=== PATIENT | male | born 1955 | race Caucasian/White ===

== ENCOUNTER 2018-03-31 11:49 | Outpatient (CLI) | payer OTHER, MEDICARE ==
--- NOTE | 2018-03-31 13:42 | MRI Report ---
Reason: UNSPECIFIED INJURY OF MUSCLE,FASCIA AND TENDON Procedure Date: 03/31/2018 Accession Number: [id number] / [id number] Procedure: MRI - Femur/Thigh LT W/O CPT Code: FULL RESULT: EXAM: MRI LEFT FEMURS/THIGHS WITHOUT CONTRAST EXAM DATE: 03/31/2018 12:17 PM. CLINICAL HISTORY: Unspecified injury of muscle, fascia and tendon. COMPARISON: None. TECHNIQUE: Multiplanar, multisequence T1-weighted and fluid-sensitive sequences of the bilateral thighs without contrast. Other: Exam is limited, patient was able to complete axial T1, coronal T1 and STIR and sagittal STIR. No contrast. FINDINGS: Bones: No fractures or subluxations. No marrow edema. No bone lesions. Joint Spaces: Visualized portions of the hip and knee joints are unremarkable on these large biqjf-od-pehj images. Tendons: The visualized hamstring origins are unremarkable. Musculature: There appears to be at least high-grade partial-thickness tear at the attachment of the hamstring musculature on the ischial tuberosity. Further characterization is difficult because the amount of motion which is present. Surrounding edematous changes are noted and there is an incomplete partial focal fluid-filled gap at the attachment of both the semimembranosus and semitendinosus tendons. Other: The visualized sciatic and femoral nerves are unremarkable. The subcutaneous tissues are unremarkable. IMPRESSION: 1. Examination is somewhat limited because of patient's inability to complete the exam and because of patient motion. 2. There does appear to be a high-grade partial-thickness tear at the proximal attachment points of both semitendinosus and semitendinosus tendons at the ischial tuberosity attachment. Some of the tendon remains. This is estimated to be 75% or greater cross-sectional tendon tear. 3. No other worrisome imaging features. [facility] MUSCULOSKELETAL RADIOLOGY SECTION
== END 2018-03-31 11:50 | disposition home or self-care (01) ==
LOC: DI 11:49
PROVIDERS: ATTEND Nurse Practitioner Family
DX: S76.302A Unspecified injury of muscle, fascia and tendon of the posterior muscle group at thigh level, left thigh, initial encounter (principal)

== ENCOUNTER 2018-10-20 13:53 | Outpatient (CLI) | payer MEDICARE ==
--- NOTE | 2018-10-21 14:49 | XRAY Report ---
Reason: COUGH, POAIN IN RIGHT HIP, PAIN IN RIGHT SHOULDER Procedure Date: 10/20/2018 Accession Number: [id number] / [id number] Procedure: XRS - Shoulder 3 View RT CPT Code: FULL RESULT: EXAM: RIGHT SHOULDER RADIOGRAPHY EXAM DATE: 10/20/2018 02:18 PM. CLINICAL HISTORY: Right shoulder pain. COMPARISON: None. TECHNIQUE: 3 views. FINDINGS: Bones: Normal bone mineralization. No fracture. No focal bone lesion. Type III acromion. Joints: Mild ossific spurring involving the scapular glenoid. Mild degenerative changes involving the right acromioclavicular joint. No subluxation. No dislocation. No evidence for shoulder joint effusion. Soft tissues: No appreciable soft tissue swelling. IMPRESSION: 1. Mild degenerative changes involving the right acromioclavicular and right glenohumeral joints. 2. No acute findings. [facility]
--- NOTE | 2018-10-21 14:50 | XRAY Report ---
Reason: COUGH, POAIN IN RIGHT HIP, PAIN IN RIGHT SHOULDER Procedure Date: 10/20/2018 Accession Number: [id number] / [id number] Procedure: XRS - Hip w/Pelvis 2-3V RT CPT Code: FULL RESULT: EXAM: RIGHT HIP RADIOGRAPHY EXAM DATE: 10/20/2018 02:18 PM. CLINICAL HISTORY: Right hip pain. COMPARISON: PELVIS 1 VIEW 08/03/2018 10:21 AM. TECHNIQUE: 2 views. FINDINGS: Bones: Normal bone mineralization. No fracture. No focal bone lesion. Joints: Stable superior lateral right acetabular spurring. No joint effusion. No joint space narrowing. Stable mild degenerative changes in the left hip joint. Sacroiliac joints are intact. Soft Tissues: Soft tissues are unremarkable. IMPRESSION: 1. Stable superior lateral right acetabular spurring when compared with the prior study performed on 08/03/2018. 2. No joint space narrowing or joint effusion. 3. The remainder of the pelvis radiography is unremarkable. [facility]
--- NOTE | 2018-10-21 14:52 | XRAY Report ---
Reason: COUGH,PAIN IN RIGHT HIP,PAIN IN RIGHT SHOULDER Procedure Date: 10/20/2018 Accession Number: [id number] / [id number] Procedure: XRS - Chest 2 View X-Ray CPT Code: 98079 FULL RESULT: EXAM: CHEST RADIOGRAPHY EXAM DATE: 10/20/2018 02:18 PM. CLINICAL HISTORY: Persistent chest pain for one year; cough. Patient was a former heavy cigarette smoker. COMPARISON: None.. TECHNIQUE: 2 views. FINDINGS: Lungs/Pleura: No focal opacities evident. No pleural effusion. No pneumothorax. Normal volumes. Mediastinum: Heart and mediastinal contours are unremarkable. Other: Mild degenerative changes in the right acromioclavicular joint. IMPRESSION: No radiographic evidence of acute cardiopulmonary disease. [facility]
== END 2018-10-20 13:54 | disposition home or self-care (01) ==
LOC: DI.S 13:53
PROVIDERS: ATTEND Physician Assistant
DX: M19.011 Primary osteoarthritis, right shoulder (principal); M25.551 Pain in right hip; M76.891 Other specified enthesopathies of right lower limb, excluding foot; R05 Cough
CPT/HCPCS: 71046

== ENCOUNTER 2018-11-22 11:56 | Outpatient (CLI) | payer MEDICARE ==
--- NOTE | 2018-11-22 15:25 | XRAY Report ---
Reason: PAIN OF RIGHT HIP, LOW BACK PAIN Procedure Date: 11/22/2018 Accession Number: [id number] / [id number] Procedure: XR - Hip w/Pelvis 2-3V RT CPT Code: FULL RESULT: EXAM: RIGHT HIP RADIOGRAPHY EXAM DATE: 11/22/2018 12:38 PM. CLINICAL HISTORY: PAIN OF RIGHT HIP, LOW BACK PAIN. COMPARISON: HIP W/PELVIS 2-3V RT 10/20/2018 2:14 PM. TECHNIQUE: 2 views. FINDINGS: Bones: Normal. No fractures or bone lesion. Joints: There is marginal osteophytosis and mild joint space loss not significantly changed compared to 10/20/2018. No subluxation. Soft Tissues: Normal. No soft tissue swelling. IMPRESSION: Stable degenerative changes, moderate hip osteoarthrosis. [facility]
--- NOTE | 2018-11-22 15:30 | XRAY Report ---
Reason: LOW BACK PAIN Procedure Date: 11/22/2018 Accession Number: [id number] / [id number] Procedure: XR - Lumbar Spine 2 View CPT Code: FULL RESULT: EXAM: LUMBOSACRAL SPINE RADIOGRAPHY EXAM DATE: 11/22/2018 12:39 PM. CLINICAL HISTORY: Low back pain. COMPARISONS: CHEST 2 VIEW 10/20/2018 2:30 PM. TECHNIQUE: 3 views. FINDINGS: Alignment: Mild leftward lumbar scoliosis. No spondylolisthesis. Bones: Five sjc-sdh-gwupdza lumbar vertebral bodies are present. Grade 1 compressive change at the superior endplate of L1. No retropulsion of bone into the spinal canal detected. Vertebral body heights elsewhere appear maintained. Disks: Mild disk space narrowing L4-L5 and L5-S1.. Facets: Mild hypertrophic changes at the facet articulations bilaterally lower lumbar spine.. Sacroiliac Joints: Unremarkable. Soft Tissues: Normal. The visualized bowel gas pattern is normal. IMPRESSION: Grade 1 compressive change at L1. Mild degenerative changes lower lumbar spine [facility]
--- NOTE | 2018-11-22 19:40 | MRI Report ---
Reason: PAIN OF RIGHT SHOULDER JOINT Procedure Date: 11/22/2018 Accession Number: [id number] / [id number] Procedure: MRI - Shoulder RT W/O CPT Code: FULL RESULT: EXAM: RIGHT SHOULDER MRI WITHOUT CONTRAST EXAM DATE: 11/22/2018 01:18 PM. CLINICAL HISTORY: Pain of right shoulder joint. COMPARISON: SHOULDER 3 VIEW RT 10/20/2018. TECHNIQUE: Multiplanar, multisequence T1-weighted and fluid-sensitive sequences of the shoulder without contrast. Other: None. FINDINGS: Acromioclavicular Region: The acromion is type II. Moderate acromioclavicular joint osteoarthritis. There is a joint effusion. There are subchondral cysts on either side of the joint. There is a moderate-sized bursal effusion. Glenohumeral Region: No subluxation. No effusion or loose bodies. The articular cartilage is unremarkable. Bone Marrow: No fracture, marrow edema or bone lesions. Labrum: Motion artifact degrades image quality. There is no appreciable tear. Musculature/Rotator Cuff: There is a 3 x 7 mm full-thickness tear of the anterior insertion of supraspinatus. There is moderate supraspinatus tendinosis. There is mild infraspinatus tendinosis. There is moderate subscapularis tendinosis with a high-grade intrasubstance tear at the musculotendinous junction. There is no appreciable atrophy. Biceps Tendon: There is tendinosis, medial subluxation and partial-thickness tearing of the long head of biceps. Other: The subcutaneous tissues are unremarkable. IMPRESSION: 1. Full-thickness tear of the anterior inserting fibers of supraspinatus. Moderate supraspinatus and subscapularis tendinosis. There is a high-grade intrasubstance tear of subscapularis. 2. Medial subluxation, tendinosis and partial-thickness tearing of the long head of biceps. 3. Moderate acromioclavicular osteoarthritis. [facility]
== END 2018-11-22 11:57 | disposition home or self-care (01) ==
LOC: DI 11:56
PROVIDERS: ATTEND Physician Assistant
DX: M25.511 Pain in right shoulder (principal); M75.101 Unspecified rotator cuff tear or rupture of right shoulder, not specified as traumatic; M75.81 Other shoulder lesions, right shoulder; M19.011 Primary osteoarthritis, right shoulder; M16.11 Unilateral primary osteoarthritis, right hip; M41.86 Other forms of scoliosis, lumbar region; M48.061 Spinal stenosis, lumbar region without neurogenic claudication
CPT/HCPCS: 72100

== ENCOUNTER 2019-08-08 08:00 | Outpatient (CLI) | payer MEDICARE | END 2019-08-08 23:59 | disposition home or self-care (01) | LOC: LAB.R 08:00 | PROVIDERS: ATTEND Nurse Practitioner Family | DX: Z20.828 Contact with and (suspected) exposure to other viral communicable diseases (principal) | CPT/HCPCS: 81599 ==

== ENCOUNTER 2021-08-14 08:00 | Outpatient (CLI) | payer MEDICARE ==
--- NOTE | 2021-08-14 10:07 | XRAY Report ---
PROCEDURE: Hand 3 View LT INDICATIONS: LEFT HAND PAIN TECHNIQUE: 3 views of the hand(s) acquired. COMPARISON: None FINDINGS: Bones: No fractures or dislocations. There is mild ventral and trace lateral subluxation at the seco nd MCP joint. Mild spurring at the first carpometacarpal joint. There are deformities of the distal r adius and distal ulna which may be remote posttraumatic, for example impaction of the distal radial m etaphysis. There is a corticated ulnar styloid fracture fragment which is minimally displaced. 3 subc ortical cysts are present at the ulnar metaphysis. No suspicious bony lesions. Soft tissues: No suspicious soft tissue calcifications. IMPRESSION: 1. Early osteoarthritic changes at the first CMC joint. 2. Mild subluxation at the second MCP joint without spurring or joint space loss. This may be arthrit ic or remote posttraumatic. 3. Probable remote posttraumatic and secondary arthritic changes of the wrist. Reviewed by: Thalia Goins MD on 08/14/2021 10:06 AM PDT Approved by: Thalia Goins MD on 08/14/2021 10:06 AM PDT Station ID: [id number]
== END 2021-08-14 23:59 | disposition home or self-care (01) ==
LOC: DI.S 08:00
PROVIDERS: ATTEND Nurse Practitioner Family
DX: M18.12 Unilateral primary osteoarthritis of first carpometacarpal joint, left hand (principal); S63.211A Subluxation of metacarpophalangeal joint of left index finger, initial encounter

== ENCOUNTER 2022-08-14 10:20 | Outpatient (CLI) | payer MEDICARE ==
--- NOTE | 2022-08-14 20:33 | XRAY Report ---
PROCEDURE: Tib/Fib RT INDICATIONS: RIGHT LOWER LIMB, RIGHT HIP PAIN TECHNIQUE: 2 views of the tibia and fibula were acquired. COMPARISON: None. FINDINGS: Bones: No fractures or dislocations. No suspicious bony lesions. Soft tissues: No suspicious soft tissue calcifications or masses. IMPRESSION: No visualized acute fracture or dislocation. However, occult injury cannot be excluded. Recommend april rt interval imaging follow-up in 7-10 days as clinically indicated for additional evaluation. Reviewed by: Laurie Saul MD on 08/14/2022 8:31 PM PDT Approved by: Laurie Saul MD on 08/14/2022 8:31 PM PDT Station ID: [id number]
--- NOTE | 2022-08-14 20:33 | XRAY Report ---
PROCEDURE: Hip w/Pelvis 2-3V RT INDICATIONS: RIGHT HIP PAIN TECHNIQUE: AP pelvis with lateral view(s) of the right hip(s). COMPARISON: None. FINDINGS: Bones: No fractures or dislocations. No suspicious bony lesions. Bilateral degenerative hip joint space narrowing. Minimal to mild degenerative changes are present within the lower lumbar spine. Soft tissues: No suspicious soft tissue calcifications or masses. IMPRESSION: Bilateral hip and lower lumbar arthritis. Reviewed by: Laurie Saul MD on 08/14/2022 8:32 PM PDT Approved by: Laurie Saul MD on 08/14/2022 8:32 PM PDT Station ID: [id number]
== END 2022-08-14 10:21 | disposition home or self-care (01) ==
LOC: DI.S 10:20
PROVIDERS: ATTEND Nurse Practitioner Family
DX: M79.605 Pain in left leg (principal); M16.0 Bilateral primary osteoarthritis of hip

== ENCOUNTER 2022-08-18 08:07 | Outpatient (CLI) | payer MEDICARE ==
[2022-08-18 14:33] LABS: BASOPHILS % (AUTO) 0.5 %; EOSINOPHILS # (AUTO) 0.2 10^3/uL (0.0-0.7); EOSINOPHILS % (AUTO) 3.5 %; HCT - HEMATOCRIT 44.8 % (42.0-52.0); HGB - HEMOGLOBIN 15.1 g/dL (14.0-18.0); LYMPHOCYTES # (AUTO) 1.8 10^3/uL (1.5-3.5); LYMPHOCYTES % (AUTO) 27.4 %; MEAN CORPUSCULAR HEMOGLOBIN 32.6 pg (27.0-31.0); MEAN CORPUSCULAR HGB CONC 33.7 g/dL (32.0-36.0); MEAN CORPUSCULAR VOLUME 96.8 fL (80.0-94.0); MEAN PLATELET VOLUME 10.7 fL (7.4-11.4); MONOCYTES # (AUTO) 0.7 10^3/uL (0.0-1.0); MONOCYTES % (AUTO) 9.8 %; NEUTROPHILS # (AUTO) 3.9 10^3/uL (1.5-6.6); NEUTROPHILS % (AUTO) 58.5 %; PLT - PLATELET COUNT 220 10^3/uL (130-450); RED BLOOD COUNT 4.63 10^6/uL (4.70-6.10); RED CELL DISTRIBUTION WIDTH 13.6 % (12.0-15.0); WHITE BLOOD COUNT 6.6 x10^3/uL (4.8-10.8)
[2022-08-18 14:57] LABS: PSA TOTAL 1.057 ng/mL (0.000-2.000)
[2022-08-18 15:03] LABS: THYROID STIMULATING HORMONE 1.77 uIU/mL (0.34-5.60)
[2022-08-18 21:03] LABS: ALBUMIN 4.3 g/dL (3.2-5.5); ALBUMIN/GLOBULIN RATIO 1.5 (1.0-2.2); ALKALINE PHOSPHATASE 40 IU/L (42-121); ALT ALANINE AMINOTRANSFERASE 21 IU/L (10-60); AST ASPARTATE AMINOTRANSFERASE 25 IU/L (10-42); BILIRUBIN,TOTAL 1.1 mg/dL (0.2-1.0); BUN - BLOOD UREA NITROGEN 18 mg/dL (6-20); CALCIUM 8.3 mg/dL (8.5-10.3); CARBON DIOXIDE - CO2 24 mmol/L (21-32); CHLORIDE 108 mmol/L (101-111); CHOL/HDL RATIO 4.4 (<5.0); CHOLESTEROL 210 mg/dL; CREATININE 0.9 mg/dL (0.6-1.2); GFR - MDRD 84 (>89); GLUCOSE 107 mg/dL (70-100); HDL CHOLESTEROL 48 mg/dL; LDL CHOLESTEROL,CALCULATED 118 mg/dL; LDL/HDL RATIO 2.5 (<3.6); POTASSIUM 4.1 mmol/L (3.5-5.0); SODIUM 138 mmol/L (135-145); TOTAL PROTEIN 7.2 g/dL (6.7-8.2); TRIGLYCERIDES 221 mg/dL; VLDL CHOLESTEROL 44 mg/dL
== END 2022-08-18 08:08 | disposition home or self-care (01) ==
LOC: LAB.S 08:07
PROVIDERS: ATTEND Nurse Practitioner Family
DX: I10 Essential (primary) hypertension (principal); E78.5 Hyperlipidemia, unspecified; Z12.5 Encounter for screening for malignant neoplasm of prostate
CPT/HCPCS: 36415; 80053; 80061; 83721; 84153; 84443; 85025

== ENCOUNTER 2023-03-31 08:22 | Outpatient (CLI) | payer MEDICARE ==
[2023-03-31 14:30] LABS: BASOPHILS % (AUTO) 0.6 %; EOSINOPHILS # (AUTO) 0.2 10^3/uL (0.0-0.7); EOSINOPHILS % (AUTO) 2.6 %; HCT - HEMATOCRIT 45.1 % (42.0-52.0); LYMPHOCYTES # (AUTO) 1.5 10^3/uL (1.5-3.5); MEAN CORPUSCULAR HEMOGLOBIN 32.1 pg (27.0-31.0); MEAN CORPUSCULAR HGB CONC 33.3 g/dL (32.0-36.0); MEAN CORPUSCULAR VOLUME 96.4 fL (80.0-94.0); MEAN PLATELET VOLUME 10.6 fL (7.4-11.4); MONOCYTES # (AUTO) 0.8 10^3/uL (0.0-1.0); MONOCYTES % (AUTO) 11.2 %; NEUTROPHILS # (AUTO) 4.3 10^3/uL (1.5-6.6); PLT - PLATELET COUNT 277 10^3/uL (130-450); RED BLOOD COUNT 4.68 10^6/uL (4.70-6.10); RED CELL DISTRIBUTION WIDTH 13.3 % (12.0-15.0); WHITE BLOOD COUNT 6.9 x10^3/uL (4.8-10.8)
[2023-03-31 15:46] LABS: ALBUMIN 4.3 g/dL (3.2-5.5); ALBUMIN/GLOBULIN RATIO 1.2 (1.0-2.2); ALKALINE PHOSPHATASE 65 IU/L (42-121); ALT ALANINE AMINOTRANSFERASE 15 IU/L (10-60); AST ASPARTATE AMINOTRANSFERASE 17 IU/L (10-42); BILIRUBIN,TOTAL 0.9 mg/dL (0.2-1.0); BUN - BLOOD UREA NITROGEN 21 mg/dL (6-20); CALCIUM 9.2 mg/dL (8.5-10.3); CARBON DIOXIDE - CO2 22 mmol/L (21-32); CHLORIDE 103 mmol/L (101-111); CHOL/HDL RATIO 4.2 (<5.0); CHOLESTEROL 191 mg/dL; CREATININE 0.8 mg/dL (0.6-1.3); GFR - MDRD 96 (>89); GLUCOSE 110 mg/dL (74-104); HDL CHOLESTEROL 45 mg/dL; LDL CHOLESTEROL,CALCULATED 116 mg/dL; LDL/HDL RATIO 2.6 (<3.6); SODIUM 134 mmol/L (135-145); TOTAL PROTEIN 7.9 g/dL (6.4-8.9); TRIGLYCERIDES 148 mg/dL (48-352); VLDL CHOLESTEROL 30 mg/dL
[2023-03-31 15:54] LABS: THYROID STIMULATING HORMONE 2.11 uIU/mL (0.34-5.60)
[2023-03-31 21:37] LABS: ESTIMATED AVERAGE GLUCOSE 108 mg/dL (70-100); HEMOGLOBIN A1c% 5.4 % (4.27-6.07)
== END 2023-03-31 08:23 | disposition home or self-care (01) ==
LOC: LAB.S 08:22
PROVIDERS: ATTEND Physician Assistant Medical
DX: Z13.9 Encounter for screening, unspecified (principal)
CPT/HCPCS: 36415; 80053; 80061; 83036; 83721; 84153; 84443; 85025

== ENCOUNTER 2023-05-03 10:21 | Outpatient (CLI) | payer MEDICARE ==
[2023-05-03 10:43] LABS: CREATININE 0.9 mg/dL (0.6-1.3)
[2023-05-03] MEDS ORDERED: IOVERSOL 320 100 ML VIAL IVP ONE (11:24)
[2023-05-03] MEDS ORDERED: DIATRIZOATE MEGLU/DIATRIZO SOD 30 ML BOTTLE PO ONE (11:24)
--- NOTE | 2023-05-03 17:42 | CT Report ---
PROCEDURE: Abdomen/Pelvis W INDICATIONS: SUPRAPUBIC PAIN CONTRAST: Optiray 320- 100ml TECHNIQUE: After the administration of intravenous contrast, a CT scan of the abdomen and pelvis was performed. Images were recorded and evaluated at appropriate window settings. Reformats: coronal and sagittal. F or radiation dose reduction, the following was used: automated exposure control, adjustment of mA and /or kV according to patient size. COMPARISON: None. FINDINGS: Image quality: Diagnostic. Lower chest: Unremarkable. Liver: No solid mass. Mild to moderate diffuse hepatic steatosis. Gallbladder and biliary tree: Surgically absent. No biliary dilation, accounting for post-cholecystec teresa state. Spleen: No splenomegaly. Pancreas: No pancreatic ductal dilation. Adrenals: No adrenal nodule. Kidneys and ureters: No hydronephrosis. No renal cystic lesion which requires follow up. No solid mas s. Stomach, bowel and peritoneum: There is moderately advanced sigmoid diverticulosis. There is a portio n of the sigmoid that sits directly on top of the dome of the bladder. This area has focal wall thick ening which may simply represent diverticulitis. However, cannot exclude a focal sigmoid malignancy. Reference sagittal reformats image 112 of series 6. There is mild inflammatory change in the subjacen t fat. Lymph nodes: No central or retroperitoneal adenopathy. Vessels: No infrarenal aortic aneurysm. PELVIS Reproductive organs: Unremarkable. Bladder: No abnormal wall thickening, accounting for underdistention. Pelvic lymph nodes: No pelvic adenopathy by size criteria. Bones: No aggressive osseous abnormality moderate chronic L1 compression. Mild anterior vertebral bod y height loss of T12 and T11.. Other: No significant ventral or inguinal hernia. IMPRESSION: 1. Moderately severe sigmoid diverticulosis with probable mild superimposed sigmoid diverticulitis. 2. A focal area of diffuse wall thickening of the sigmoid and medially superior to the dome of the bl adder may simply be related to diverticulitis. However, cannot exclude an underlying malignancy. 3. Presumed osteoporotic compressions. 4. Remote cholecystectomy. Comment: Recommend direct visualization after acute symptoms resolve. Reviewed by: Jeevan Castellon MD on 05/03/2023 5:41 PM PST Approved by: Jeevan Castellon MD on 05/03/2023 5:41 PM PST Station ID: [id number]
[2023-05-03] MEDS: DIATRIZOATE MEGLU/DIATRIZO SOD 30 ML BOTTLE PO ONE (18:35)
[2023-05-03] MEDS: IOVERSOL 320 100 ML VIAL IVP ONE (18:35)
== END 2023-05-03 10:22 | disposition home or self-care (01) ==
LOC: LAB 10:21
PROVIDERS: ATTEND Registered Nurse
DX: R10.30 Lower abdominal pain, unspecified (principal); K57.30 Diverticulosis of large intestine without perforation or abscess without bleeding; Z90.49 Acquired absence of other specified parts of digestive tract
CPT/HCPCS: 36415; 74177; 82565; Q9963; Q9967

== ENCOUNTER 2023-06-28 08:01 | Outpatient (CLI) | payer MEDICARE ==
--- NOTE | 2023-06-28 10:47 | XRAY Report ---
PROCEDURE: Knee 2V LT INDICATIONS: KNEE JOINT PAIN,LEFT TECHNIQUE: 2 views of the knee(s) were acquired. COMPARISON: None. FINDINGS: Bones: No fractures or dislocations. No suspicious bony lesions. Tricompartmental joint space oj rowing with associated osteophytosis. Soft tissues: No knee joint effusion. No suspicious soft tissue calcifications or masses. IMPRESSION: No acute bony abnormality. Mild to moderate tricompartmental osteoarthritis. Kellgren-Dennis scale of osteoarthritis: 2. Reviewed by: Jose Giordano MD on 06/28/2023 10:46 AM PDT Approved by: Jose Giordano MD on 06/28/2023 10:46 AM PDT Station ID: [id number]
== END 2023-06-28 08:02 | disposition home or self-care (01) ==
LOC: DI.S 08:01
PROVIDERS: ATTEND Physician Assistant Medical
DX: M17.12 Unilateral primary osteoarthritis, left knee (principal)

== ENCOUNTER 2023-11-25 08:14 | Outpatient (CLI) | payer MEDICARE, MEDICAID ==
--- NOTE | 2023-11-25 14:33 | XRAY Report ---
PROCEDURE: Knee 2V LT INDICATIONS: LEFT KNEE PAIN TECHNIQUE: 2 views of the knee(s) were acquired. COMPARISON: 06/28/2023 FINDINGS: Bones: No fractures or dislocations. Mild osteoarthritic changes with mild osteophytosis and joint s pace narrowing. No suspicious bony lesions. Soft tissues: No knee joint effusion. No suspicious soft tissue calcifications or masses. IMPRESSION: No acute bony abnormality. Mild osteoarthritic changes. Reviewed by: Bobby Luna MD on 11/25/2023 2:31 PM PDT Approved by: Bobby Luna MD on 11/25/2023 2:31 PM PDT Station ID: [id number]
== END 2023-11-25 08:15 | disposition home or self-care (01) ==
LOC: LAB.S 08:14 → DI.S 08:15
PROVIDERS: ATTEND Nurse Practitioner Gerontology
DX: M17.12 Unilateral primary osteoarthritis, left knee (principal)

== ENCOUNTER 2024-06-21 10:14 | Inpatient (IN) ==
[2024-06-21 10:42] LABS: BASOPHILS % (AUTO) 0.2 %; HCT - HEMATOCRIT 32.6 % (42.0-52.0); HGB - HEMOGLOBIN 10.5 g/dL (14.0-18.0); LYMPHOCYTES % (AUTO) 5.7 %; MEAN CORPUSCULAR HEMOGLOBIN 31.4 pg (27.0-31.0); MEAN CORPUSCULAR HGB CONC 32.2 g/dL (32.0-36.0); MEAN CORPUSCULAR VOLUME 97.6 fL (80.0-94.0); MEAN PLATELET VOLUME 9.9 fL (7.4-11.4); MONOCYTES % (AUTO) 7.8 %; NEUTROPHILS % (AUTO) 85.1 %; PLT - PLATELET COUNT 462 10^3/uL (130-450); RED BLOOD COUNT 3.34 10^6/uL (4.70-6.10); RED CELL DISTRIBUTION WIDTH 13.5 % (12.0-15.0); WHITE BLOOD COUNT 21.6 x10^3/uL (4.8-10.8)
[2024-06-21 10:48] LABS: ABNORMAL LYMPHS % (MANUAL) 0 %
[2024-06-21 10:55] LABS: ALBUMIN 3.2 g/dL (3.2-5.5); ALBUMIN/GLOBULIN RATIO 0.7 (1.0-2.2); ALKALINE PHOSPHATASE 109 IU/L (42-121); ALT ALANINE AMINOTRANSFERASE 78 IU/L (10-60); AST ASPARTATE AMINOTRANSFERASE 60 IU/L (10-42); BILIRUBIN,TOTAL 1.4 mg/dL (0.2-1.0); BUN - BLOOD UREA NITROGEN 19 mg/dL (6-20); CALCIUM 8.4 mg/dL (8.5-10.3); CARBON DIOXIDE - CO2 23 mmol/L (21-32); CHLORIDE 96 mmol/L (101-111); CREATININE 1.1 mg/dL (0.6-1.3); GFR - MDRD 67 (>89); GLUCOSE 107 mg/dL (74-104); LIPASE < 10 U/L (11-82); SODIUM 130 mmol/L (135-145); TOTAL PROTEIN 7.8 g/dL (6.4-8.9)
[2024-06-21 10:59] LABS: BAND NEUTROPHILS % (MANUAL) 2 %; DIFFERENTIAL COMMENT MANUAL DIFFERENTIAL; LYMPHOCYTES # (MANUAL) 0.9 10^3/uL (1.5-3.5); LYMPHOCYTES % (MANUAL) 1 %; MONOCYTES # (MANUAL) 2.4 10^3/uL (0.0-1.0); NEUTROPHILS # (MANUAL) 18.4 10^3/uL (1.5-6.6); PLATELET ESTIMATE, MANUAL INCREASED (>450,000) (NORMAL); RBC MORPHOLOGY (MULTIPLE) 1+ ANISOCYTOSIS (NORMAL); REACTIVE LYMPHS % (MANUAL) 3 %
--- OUTSIDE RECORDS SUMMARY | 2024-06-21 11:06 | EXTERNAL MEDICAL SUMMARY RPT | Continuity of Care Document ---
Author Organization [facility] Address [address] [place] [id number] Phone Problems date description facility 2024-04-03 08:44 Other chronic pain [facility] 2024-04-03 08:44 Chest pain, unspecified [facility] 2024-04-10 17:27 Other specified anxiety disorde rs [facility] 2024-04-10 17:27 Sprain of unspecifie d site of left knee, initial [facility] 2024-04-12 09:04 Pain in left thigh [facility] 2024-04-12 10:29 Pain in left thigh [facility] 2024-04-21 14:43 Pain in left thigh [facility] 2024-04-21 14:44 Other specified anxiety [facility]de [facility] 2024-04-21 14:44 Illness, unspecified [facility] 2024-04-21 14:44 Sprain of unspecifie d site of left knee, initial encounter [facility] 2024-04-21 14:45 Bipolar disorder, unspecified [facility] 2024-04-26 11:02 Illness, unspecified [facility] 2024-04-26 11:06 Illness, unspecified [facility] 2024-04-27 07:27 Illness, unspecified [facility] 2024-04-28 10:23 Pain in unspecified knee [facility] 2024-04-28 10:23 Dorsalgia, unspecified [facility] 2024-04-28 10:23 Illness, unspecified [facility] 2024-04-28 10:23 Encounter for issue of repeat p rescription [facility] 2024-05-03 09:23 Other chronic pain [facility] 2024-05-03 09:23 Chest pain, unspecified [facility] 2024-05-16 12:44 Other specified disorders of [facility] Results/Labs test date facility value unit notes Result panel 1 SARS-CoV-2 -RESP PCR PANEL 2024-05-16 09:59 [facility] NOT DETECTED (missing) A negative test result for this test indicates that SARS-CoV-2 RNA was not present in the specimen above the limit of detection. Testing performed on the [employer] RP2.1 Panel, a multiplexed nucleic acid repiratory panel. Negative results do not preclude infection with SARS-CoV-2 virus and should not be the sole basis of a patient management decision. In some patients repeat testing at various time points may be necessary for virus detection. False-negative results may arise from improper sample collection, degradation of viral RNA during shipping or storage, the presence of PCR inhibitors, and/or mutation in the SARS-CoV-2 virus. INFLUENZA A- RESP PCR PANEL 2024-05-16 09:59 [facility] NOT DETECTED (missing) Influenza A including subtypes H1, H3, and H1-2009 not detected by the [employer] RP2.1 Panel, a multiplexed nucleic acid test intended for the simultaneous qualitative detection and differentiation of nucleic acids from multiple viral and bacterial respiratory organisms. B. PARAPERTUSSIS- RESP PCR LEGER 2024-05-16 09:59 [facility] NOT DETECTED (missing) Negative results for this organism do not preclude infection with this organism and may require additional laboratory testing (e.g., bacterial and viral culture, immunofluorescence, and radiography) when evaluating a patient with possible respiratory tract infection. B. PERTUSSIS- RESP PCR PANEL 2024-05-16 09:59 [facility] NOT DETECTED (missing) Negative results for this organism do not preclude infection with this organism and may require additional laboratory testing (e.g., bacterial and viral culture, immunofluorescence, and radiography) when evaluating a patient with possible respiratory tract infection. C. PNEUMONIAE- RESP PCR PANEL 2024-05-16 09:59 [facility] NOT DETECTED (missing) Negative results for this organism do not preclude infection with this organism and may require additional laboratory testing (e.g., bacterial and viral culture, immunofluorescence, and radiography) when evaluating a patient with possible respiratory tract infection. M. PNEUMONIAE- RESP PCR PANEL 2024-05-16 09:59 [facility] NOT DETECTED (missing) Negative results for this organism do not preclude infection with this organism and may require additional laboratory testing (e.g., bacterial and viral culture, immunofluorescence, and radiography) when evaluating a patient with possible respiratory tract infection. ADENOVIRUS - RESP PCR PANEL 2024-05-16 09:59 [facility] NOT DETECTED (missing) Negative results in the setting ofa respiratory illness may be due to infection with pathogens not detected by this test, or lower respiratory tract infection that may not be detected by nasopharyngeal specimen. CORONAVIRUS 229E-RESP PCR 2024-05-16 09:59 [facility] NOT DETECTED (missing) Negative results in the setting ofa respiratory illness may be due to infection with pathogens not detected by this test, or lower respiratory tract infection that may not be detected by nasopharyngeal specimen. CORONAVIRUS HKU1-RESP PCR 2024-05-16 09:59 [facility] NOT DETECTED (missing) Negative results in the setting ofa respiratory illness may be due to infection with pathogens not detected by this test, or lower respiratory tract infection that may not be detected by nasopharyngeal specimen. CORONAVIRUS [id number] PCR 2024-05-16 09:59 [facility] NOT DETECTED (missing) Negative results in the setting ofa respiratory illness may be due to infection with pathogens not detected by this test, or lower respiratory tract infection that may not be detected by nasopharyngeal specimen. CORONAVIRUS [id number]-[id number] PCR 2024-05-16 09:59 [facility] NOT DETECTED (missing) Negative results in the setting ofa respiratory illness may be due to infection with pathogens not detected by this test, or lower respiratory tract infection that may not be detected by nasopharyngeal specimen. HUMAN METAPNEUMOVIRUS 2024-05-16 09:59 [facility] NOT DETECTED (missing) Negative results in the setting ofa respiratory illness may be due to infection with pathogens not detected by this test, or lower respiratory tract infection that may not be detected by nasopharyngeal specimen. INFLUENZA B - RESP PCR PANEL 2024-05-16 09:59 [facility] NOT DETECTED (missing) Negative results in the setting ofa respiratory illness may be due to infection with pathogens not detected by this test, or lower respiratory tract infection that may not be detected by nasopharyngeal specimen. PARAINFLUENZA VIRUS 1 2024-05-16 09:59 [facility] NOT DETECTED (missing) Negative results in the setting ofa respiratory illness may be due to infection with pathogens not detected by this test, or lower respiratory tract infection that may not be detected by nasopharyngeal specimen. PARAINFLUENZA VIRUS 2 2024-05-16 09:59 [facility] NOT DETECTED (missing) Negative results in the setting ofa respiratory illness may be due to infection with pathogens not detected by this test, or lower respiratory tract infection that may not be detected by nasopharyngeal specimen. PARAINFLUENZA VIRUS 3 2024-05-16 09:59 [facility] NOT DETECTED (missing) Negative results in the setting ofa respiratory illness may be due to infection with pathogens not detected by this test, or lower respiratory tract infection that may not be detected by nasopharyngeal specimen. PARAINFLUENZA VIRUS 4 2024-05-16 09:59 [facility] NOT DETECTED (missing) Negative results in the setting ofa respiratory illness may be due to infection with pathogens not detected by this test, or lower respiratory tract infection that may not be detected by nasopharyngeal specimen. RHINOVIRUS/ENTEROVI JANETTE 2024-05-16 09:59 [facility] NOT DETECTED (missing) Negative results in the setting ofa respiratory illness may be due to infection with pathogens not detected by this test, or lower respiratory tract infection that may not be detected by nasopharyngeal specimen. RSV- RESP PCR PANEL 2024-05-16 09:59 [facility] NOT DETECTED (missing) Negative results in the setting ofa respiratory illness may be due to infection with pathogens not detected by this test, or lower respiratory tract infection that may not be detected by nasopharyngeal specimen. Result panel 2 NUCLEATED RED BLOOD CELLS AUTO 2024-05-16 11:24 [facility] 0.0 /100wbc (missing) EOSINOPHILS # (AUTO) 2024-05-16 11:24 [facility] 0.0 10 3/ul (missing) NRBC ABSOLUTE COUNT (AUTO) 2024-05-16 11:24 [facility] 0.00 x10 3/ul (missing) BASOPHILS # (AUTO) 2024-05-16 11:24 [facility] 0.1 10 3/ul (missing) LYMPHOCYTES # (AUTO) 2024-05-16 11:24 [facility] 0.6 10 3/ul (missing) BILIRUBIN,TOTAL 2024-05-16 11:24 [employer] [facility] 1.1 mg /dl As of August 2022 testing method has changed, this may include reference ranges. LACTIC ACID, VENOUS 2024-05-16 11:24 [facility] N As of August 2022 testing method has changed, this may include reference ranges. ALBUMIN/GLOBULIN RATIO 2024-05-16 11:24 [facility] 1.2 (missing) (missing) CREATININE 2024-05-16 11:24 [facility] 1.[facility] mg/dl As of August 2022 testing method has changed, this may include reference ranges. CHLORIDE 2024-05-16 11:24 [facility] 100 mmol/l As of August 2022 testing method has changed, this may include reference ranges. ANION GAP 2024-05-16 11:24 [facility] 11.0 (missing ) (missing) GLUCOSE 2024-05-16 11:24 [facility] 117 mg/dl As of August 2022 testing method has changed, this may include reference ranges. RED CELL DISTRIBUTION WIDTH 2024-05-16 11:24 [facility] 13.2 % (missing) SODIUM 2024-05-16 11:24 [employer] 132 mmol/l As of August 2022 testing method has changed, this may include reference ranges. HGB - HEMOGLOBIN 2024-05-16 11:24 [employer] 14.6 g /dl (missing) NEUTROPHILS # (AUTO) 2024-05-16 11:24 [facility] 18.8 10 3/ul (missing) MONOCYTES # (AUTO) 2024-05-16 11:24 [facility] 2.2 10 3/ul (missing) CARBON DIOXIDE - CO2 2024-05-16 11:24 [employer] 21 mmol/l As of August 2022 testing method has changed, this may include reference ranges. WHITE BLOOD COUNT 2024-05-16 11:24 [facility] 21.9 x10 3/ul (missing) PLT - PLATELET COUNT 2024-05-16 11:24 [facility] 242 10 3/ul (missing) BUN - BLOOD UREA NITROGEN 2024-05-16 11:24 [facility] 27 mg/dl As of Aug testing method has changed, this may include reference ranges. GLOBULIN 2024-05-16 11:24 [facility] 3.4 g/dl (missing) POTASSIUM 2024-05-16 11:24 [facility] 3.8 mmol/l As of August 2022 testing method has changed, this may include reference ranges. MEAN CORPUSCULAR HEMOGLOBIN 2024-05-16 11:24 [facility] 32.7 pg (missing) MEAN CORPUSCULAR HGB CONC 2024-05-16 11:24 [facility] 33.2 g/dl (missing) AST ASPARTATE AMINOTRANSFERASE 2024-05-16 11:24 [facility] 36 iu/l As of August 2022 testing method has changed, this may include reference ranges. ALT ALANINE AMINOTRANSFERASE 2024-05-16 11:24 [facility] 36 iu/l As of August 2022 testing method has changed, this may include reference ranges. ALBUMIN 2024-05-16 11:24 [facility] 4.0 g/dl As of August 2022 testing method has changed, this may include reference ranges. RED BLOOD COUNT 2024-05-16 11:24 [facility] 4.46 10 6/ul (missing) HCT - HEMATOCRIT 2024-05-16 11:24 [facility] 44.0 % (missing) GFR - MDRD 2024-05-16 11:24 [facility] 60 (jose farfan) Social History date description facility
--- NOTE | 2024-06-21 11:39 | ED Physician Documentation ---
History of Present Illness Stated complaint Stated Complaint: ABD PX Chief complaint Chief Complaint: Abd Pain History obtained from History obtained from: Patient History of Present Illness Pain level max: 6 Pain level now: 2 Additonal information Additional information: Patient is a 68-year-old male who states he has had intermittent abdominal pain over the past several months. He states that the pain did get better a few months ago but feels like it is starting to recur. States has occasional diarrhea. No fevers. He states that he had vomiting once about a week ago. He states that several days ago he woke up and his pillow was covered in sweat. No cough or congestion. No blood in the stool. History of cholecystectomy. S tates decreased appetite. He states it is worse with palpation and nothing makes it better and it seems to just go away. Review of Systems Constitutional Denies: Fever or Chills Ears, nose, mouth, and throat Denies: Neck pain Cardiovascular Denies: chest pain Respiratory Denies: Cough Gastrointestinal Denies: Bile emesis, Tim blood emesis, Coffee grounds in vomit or Rectal bleeding Genitourinary Denies: Painful urination, Flank pain, Incontinence or Urinary frequency Musculoskeletal Denies: Back pain or Neck pain Integumentary/Breast Denies: Rash Neurological Denies: Headache Meds/Allgy Home Medications Ambulatory Orders Medication Instructions Recorded Confirmed quetiapine 25 mg tablet See Rx Instructions PO ONCE HS #90 04/10/24 04/12/24 tabs methocarbamol 750 mg tablet 750 mg PO Q6H #60 tabs 04/12/24 06/21/24 meloxicam 15 mg tablet 15 mg PO DAILY #30 tabs 04/26/24 06/21/24 doxycycline hyclate 100 mg tablet 100 mg PO BID #14 tabs 05/16/24 06/21/24 L.acid,par,plant,rham-B.anim,bif,brev,inf,long 1 cap PO DAILY 06/21/24 06/21/24 30 billion cell capsule (Probiotic Digestive Health) bupropion HCl 150 mg tablet,12 hr 150 mg PO BID 06/21/24 06/21/24 sustained-release ibuprofen 200 mg tablet (Advil) 200 mg PO Q8H 06/21/24 06/21/24 magnesium oxide 250 mg PO DAILY 04/23/25 04/23/25 zinc gluconate 30 mg tablet 30 mg PO DAILY 06/21/24 06/21/24 Allergies Allergies Allergy/AdvReac Type Severity Reaction Status Date / Time Penicillins Allergy Severe fainting Verified 06/21/24 10:25 REPLACED BY [facility] Active Problems All Active Problems (Updated 06/21/24 @ 15:51 by Eva Rowe DO) Concern about digestive 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 diagnosis (Acute) Leukocytosis (Acute) Abscess of liver (Acute) Pain in penis (Acute) Lower extremity pain (Acute) Left thigh pain (Acute) Sleep apnea (Acute 03/19/23) Unspecified injury of muscle, fascia and tendon of the posterior muscle group at thigh level, left thigh, initial encounter (Acute 05/05/18) Multiple medical problems (Acute) Left knee sprain (Acute) Non-adherence to medical treatment (Acute) Chronic chest pain (Acute) Anxiety associated with depression (Acute) Poor concentration (Acute) Abnormal food appetite (Acute) Dysuria (Acute) HTN (hypertension), benign (Acute) Pain, joint, knee, left (Acute 06/16/23) Elevated blood pressure reading without diagnosis of hypertension (Acute 03/31/23) Bipolar 1 disorder (Acute 03/19/23) Needs assistance with community resources (Acute) Elevated blood pressure reading in office with diagnosis of hypertension (Acute) Strain of left knee and leg (Acute) Muscle cramps (Acute) Medical History Medical History (Updated 06/21/24 @ 15:51 by Eva Rowe DO) Strain of right calf muscle Bipolar I disorder with mood-incongruent psychotic features Elevated blood pressure reading Impingement syndrome of right shoulder (12/01/16) Bright red blood per rectum (04/05/17) Shoulder pain, right (11/30/16) Pruritus ani (04/05/17) Presbyopia (05/26/23) Pain in left hip (08/03/18) Lesion of skin of face (06/16/23) Hemorrhoids, internal (04/05/17) Erectile dysfunction (06/16/23) Emphysema (subcutaneous) resulting from a procedure, subsequent encounter (03/19/23) Diverticulosis (05/05/23) Chest pain (03/19/23) Aphasia (06/16/23) Abnormal abdominal MRI (05/05/23) Surgical History Surgical History (Updated 06/21/24 @ 15:41 by Eva Rowe DO) History of cholecystectomy Family History Family History Daughter Drug abuse Son Drug abuse Social History Social History Smoking Status: Unknown if ever smoked If you are a former smoker, when did you quit? (Date/Year): 2004 Second hand tobacco smoke exposure: No Do you dip or chew tobacco?: No Do you vape?: No Smoking Status Details: pt states no, but unable to assess properly Living arrangement: At home Marital Status: Living Condition: Alone Relationship: Physical Activity: Weight-lifting How many days per week?: 3 Level: Independent Physical - Functional Details: pt does not engage in exercise program Do you feel safe in your home environment?: Yes History of Abuse: No ETOH Use: Wine Frequency: Daily Number of Amount/day: 1 ETOH Use Details: pt has hx of AUD Substance Use: cannabis (any form) Substance Use Details: 4-5 joints daily Are you sexually active?: No 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; 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; [employer] Retired: No Service: No Are you following a diet prescribed by a doctor: No Are you following a special diet: No Exam Exam Vital Signs: Vital Signs x48h Pulse Resp BP Pulse Ox 06/21/24 13:48 94 18 113/76 97 Constitutional normal general appearance and no apparent distress HENMT oropharynx normal moist mucous membranes Eyes PERRL Neck/C-Spine visual inspection normal Respiratory breath sounds equal bilaterally, normal respiratory effort and clear to auscultation bilaterally Cardiovascular normal heart rate noted and regular rhythm noted Gastrointestinal abdomen normal to inspection, abdomen soft to palpation and nondistended Mild tenderness to palpation right lower quadrant with no peritoneal signs. Negative Rovsing, obturator and psoas signs. Genitourinary no CVA tenderness Extremities no edema Neurology speech normal Psychiatry mental status grossly normal and oriented x3 Skin skin color normal Results Vitals Vitals: Vital Signs - 24 hr 06/21/24 10:22 06/21/24 13:48 Temperature 36.6 C Temperature Source Temporal Artery Scan Pulse Rate 97 94 Respiratory Rate 20 18 Blood Pressure 101/74 113/76 O2 Saturation 98 97 O2 Source Room air Room air Pain Intensity 9 Oxygen O2 Source Room air Labs Labs: Laboratory Tests 06/21/24 06/21/24 10:37 13:13 WBC 21.6 H RBC 3.34 L Hgb 10.5 L Hct 32.6 L MCV 97.6 H MCH 31.4 H MCHC 32.2 RDW 13.5 Plt Count 462 H MPV 9.9 Neut # (Auto) Not Reportable Lymph # (Auto) Not Reportable [place] # (Auto) Not Reportable Eos # (Auto) Not Reportable Baso # (Auto) Not Reportable Absolute Nucleated RBC Not Reportable Total Counted 100 Band Neuts % (Manual) 2 Reactive Lymphs % (Man) 3 Abnorm Lymph % (Manual) 0 Nucleated RBC % Not Reportable Neutrophils # (Manual) 18.4 H Lymphocytes # (Manual) 0.9 L Monocytes # (Manual) 2.4 H Eosinophils # (Manual) 0.0 Basophils # (Manual) 0.0 Differential Comment MANUAL DIFFERENTIAL Platelet Estimate INCREASED (>450,000) RBC Morph Micro Appear 1+ ANISOCYTOSIS PT 20.4 H INR 1.8 H APTT 30.6 Sodium 130 L Potassium 4.0 Chloride 96 L Carbon Dioxide 23 Anion Gap 11.0 BUN 19 Creatinine 1.1 Estimated GFR (MDRD) 67 L Glucose 107 H Calcium 8.4 L Total Bilirubin 1.4 H AST 60 H ALT 78 H Alkaline Phosphatase 109 Total Protein 7.8 Albumin 3.2 Globulin 4.6 H Albumin/Globulin Ratio 0.7 L Lipase < 10 L Ethyl Alcohol < 10.0 Rads (name of study) CT abd pelvis: Relevant Findings:: Final report received PD Medical Decision Making ED course Complexity details: reviewed results, re-evaluated patient, considered differential and d/w patient ED course: 68-year-old male with what appears to be a liver abscess on CT scan. Discussed the case with Dr. Robles, radiology in house who feels that this would be amenable to drain placement under CT guidance. Discussed with Dr. Rowe, general surgery who feels comfortable keeping the patient here and monitoring, if surgery would be needed the abscess is on the free edge of the liver and would be amenable to surgery. Recommends drain placement first along with antibiotics and culture. Also discussed the case with Dr. Lane, hospitalist who accepts. Antibiotics were held until drain placement was performed. This document was made in part using voice recognition software. While efforts are made to proofread this document, sound alike and grammatical errors may occur. Discharge Plan Discharge Patient Disposition: 66 [facility] DC/Xfer Condition: Stable Clinical Impression: Abscess of liver Interventions: ED Admission Assessment Last Done: 06/21/24 14:54
[2024-06-21] MEDS ORDERED: iohexoL-300 100 ML VIAL ONE ×2 (11:44→15:29)
[2024-06-21] MEDS: iohexoL-300 100 ML VIAL IVP ONE (12:12)
--- NOTE | 2024-06-21 12:29 | CT Report ---
PROCEDURE: CT Abdomen/Pelvis W INDICATIONS: R sided abd pain CONTRAST: 100ml omni 300 TECHNIQUE: After the administration of intravenous contrast, a CT scan of the abdomen and pelvis was performed. Images were recorded and evaluated at appropriate window settings. Reformats: coronal and sagittal. F or radiation dose reduction, the following was used: automated exposure control, adjustment of mA and /or kV according to patient size. COMPARISON: 05/03/2023. FINDINGS: Image quality: Diagnostic. Lower chest: Unremarkable. Liver: Probable multiloculated very large right lobe liver abscess which on image 52 of series 2 margaret ures approximately 7.0 x 15.5 cm. It measures approximately 8.4 cm on coronal reformatted image 55 of series 4. Necrotic metastatic disease is less likely. No liver lesions were present on the previous study.. Gallbladder: Absent Biliary tree: No intrahepatic or extrahepatic dilation, accounting for age. Spleen: No splenomegaly. Pancreas: No pancreatic ductal dilation. Adrenals: No adrenal nodule. Kidneys and ureters: No hydronephrosis. No renal cystic lesion which requires follow up. No solid mas s. Stomach, bowel and peritoneum: No gastric or small bowel dilation. Again noted is extensive sigmoid d iverticulosis with an area of wall thickening in the region of the rectosigmoid. Findings are unchang ed.. No pathologic free fluid. Lymph nodes: No central or retroperitoneal adenopathy. Vessels: No infrarenal aortic aneurysm. Patent portal vein. PELVIS Reproductive organs: Unremarkable. Bladder: No abnormal wall thickening. Pelvic lymph nodes: No pelvic adenopathy by size criteria. Bones: No aggressive osseous abnormality. Other: No significant ventral or inguinal hernia. IMPRESSION: 1. New findings in the liver most likely represent extensive right lobe liver abscess. Necrotic metas tatic disease less likely. Of note, there are no liver lesions on the previous study. 2. Extensive sigmoid diverticulosis as seen previously, with diffuse thickening in the region of the rectosigmoid, also similar to previous. Comments: The liver process would be amenable to CT-guided sampling and drainage. Recommend nonemerge nt colonoscopy if this has not yet been accomplished since the previous study to exclude a rectosigmo id lesion. Above discussed with Yossi Handley MD at the time of dictation on 06/21/2024 at 1221 hours. Reviewed by: Jeevan Castellon MD on 06/21/2024 12:27 PM PDT Approved by: Jeevan Castellon MD on 06/21/2024 12:27 PM PDT Station ID: [id number]
[2024-06-21] MEDS ORDERED: LIDOCAINE-MPF 1% 5 ML VIAL ONE (13:25)
[2024-06-21 13:29] LABS: PARTIAL THROMBOPLASTIN TIME 30.6 secs (24.9-33.3)
[2024-06-21 13:34] LABS: INR 1.8 (0.8-1.2); PT - PROTHROMBIN TIME 20.4 secs (9.9-12.6)
[2024-06-21] MEDS: SODIUM CHLORIDE 0.9% 1,000 ML IV STA (13:48)
--- NOTE | 2024-06-21 14:37 | HISTORY & PHYSICAL EXAMINATION ---
Chief Complaint Chief Complaint Chief Complaint: Abdominal pain History of Present Illness Admitted From Admitted From:: Home History Obtained From Records Reviewed: EMR History obtained from: Patient Exam Limitations: None History of Present Illness HPI Comment/Other: Patient is a 68-year-old male with a history of bipolar disorder who presents with 3 months of worsening abdominal pain. Patient describes the pain as sharp and located in his right upper quadrant. He said he noticed it about 3 months ago, and has progressively gotten worse. He also notes decreased appetite, and a 20 pound weight loss over the last few months. Has had some nausea, but no episodes of emesis. Over the last 2 to 3 days, he has noticed that he has had some fevers and chills as well. He does state that he had a cholecystectomy a few years ago. He also states that he has had multiple colonoscopies, the most recent one being about a year ago. When asked where, he said a hospital in [place], but is unable to provide the exact one. He states his ex-girlfriend would know, and we will continue to keep us updated. Previous notes from family medicine and walk-in care were reviewed: Patient does have a long history of noncompliance. In the ER, patient was afebrile, saturating 90% on room air, blood pressure was 101/74, and his heart rate was 97. Lab work was significant for a leukocytosis of 21.6, hemoglobin of 10.5, sodium of 130, elevated bilirubin of 1.4, AST of 60, and ALT of 78. Lipase was less than 10. CT abdomen/pelvis was done which shows extensive right lobe liver abscess, as well as extensive sigmoid diverticulosis with diffuse thickening in the region of the rectosigmoid. Meds/Allgy Home Medications Ambulatory Orders Medication Instructions Recorded Confirmed bupropion HCl (smoking deter) 150 150 mg PO QDAY 12/14/23 04/12/24 mg tablet,12 hr sustained-release(smoking deterrent) meloxicam 15 mg tablet 15 mg PO QDAY 90 days #180 tabs 04/10/24 04/12/24 quetiapine 25 mg tablet See Rx Instructions PO ONCE HS #90 04/10/24 04/12/24 tabs methocarbamol 750 mg tablet 750 mg PO Q6H #60 tabs 04/12/24 04/12/24 meloxicam 15 mg tablet 15 mg PO DAILY #30 tabs 04/26/24 doxycycline hyclate 100 mg tablet 100 mg PO BID #14 tabs 05/16/24 Allergies Allergies Allergy/AdvReac Type Severity Reaction Status Date / Time Penicillins Allergy Severe fainting Verified 06/21/24 10:25 PFSH Active Problems All Active Problems (Updated 06/21/24 @ 14:45 by Hayder Wolfe MD) Leukocytosis (Acute) Abscess of liver (Acute) Pain in penis (Acute) Lower extremity pain (Acute) Left thigh pain (Acute) Sleep apnea (Acute 03/19/23) Unspecified injury of muscle, fascia and tendon of the posterior muscle group at thigh level, left thigh, initial encounter (Acute 05/05/18) Multiple medical problems (Acute) Left knee sprain (Acute) Non-adherence to medical treatment (Acute) Chronic chest pain (Acute) Anxiety associated with depression (Acute) Poor concentration (Acute) Abnormal food appetite (Acute) Dysuria (Acute) HTN (hypertension), benign (Acute) Pain, joint, knee, left (Acute 06/16/23) Elevated blood pressure reading without diagnosis of hypertension (Acute 03/31/23) Bipolar 1 disorder (Acute 03/19/23) Needs assistance with community resources (Acute) Elevated blood pressure reading in office with diagnosis of hypertension (Acute) Strain of left knee and leg (Acute) Muscle cramps (Acute) Medical History Medical History (Updated 06/21/24 @ 14:45 by Hayder Wolfe MD) Strain of right calf muscle Bipolar I disorder with mood-incongruent psychotic features Elevated blood pressure reading Impingement syndrome of right shoulder (12/01/16) Bright red blood per rectum (04/05/17) Shoulder pain, right (11/30/16) Pruritus ani (04/05/17) Presbyopia (05/26/23) Pain in left hip (08/03/18) Lesion of skin of face (06/16/23) Hemorrhoids, internal (04/05/17) Erectile dysfunction (06/16/23) Emphysema (subcutaneous) resulting from a procedure, subsequent encounter (03/19/23) Diverticulosis (05/05/23) Chest pain (03/19/23) Aphasia (06/16/23) Abnormal abdominal MRI (05/05/23) Surgical History Surgical History (Updated 06/21/24 @ 15:41 by Eva Rowe DO) History of cholecystectomy Family History Family History Daughter Drug abuse Son Drug abuse Social History Social History Smoking Status: Former smoker If you are a former smoker, when did you quit? (Date/Year): 2004 Second hand tobacco smoke exposure: No Do you dip or chew tobacco?: No Do you vape?: No Living arrangement: At home Marital Status: Living Condition: Alone Relationship: Physical Activity: Weight-lifting How many days per week?: 3 Level: Independent Physical - Functional Details: pt does not engage in exercise program Do you feel safe in your home environment?: Yes Suffered physical, verbal, emotional, or financial abuse?: No History of Abuse: No ETOH Use: Wine Frequency: Daily Number of Amount/day: 1 ETOH Use Details: pt has hx of AUD Substance Use: cannabis (any form) Substance Use Details: 4-5 joints daily Are you sexually active?: No 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[employer]; 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; [employer] Retired: No Service: No Are you following a diet prescribed by a doctor: No Are you following a special diet: No Review of Systems Constitutional Reports: Fatigue, Fever, Chills, Malaise, Weakness, Night sweats, Poor appetite and Weight loss Eyes Denies: Pain, Irritation, Blurry vision, Vision loss, Diplopia or Eye discomfort Ears, nose, mouth, and throat Denies: Ear pain, Hearing loss, Tinnitus, Nose bleeds, Nasal discharge, Mouth lesions, Bleeding gums or Neck pain Cardiovascular Denies: Irregular heart rate, chest pain, palpitations, edema, Syncope or shortness of breath with exertion Respiratory Denies: Shortness of breath, Cough, Sputum production or Wheezing Gastrointestinal Reports: Abdominal pain, Nausea, Vomiting, Constipation and Bloating; Denies: Abdominal distention, Heartburn or Diarrhea Genitourinary Denies: Painful urination, Urinary frequency or Urinary urgency Musculoskeletal Denies: Back pain, Neck pain, Extremity pain, Extremity swelling or Joint pain Integumentary/Breast Denies: Rash, Itching, Dryness, Redness or Skin pain Neurological Reports: General weakness; Denies: Headache, Weakness in extremities, Numbness in extremities, Abnormal gait or Dizziness Psychiatric Denies: Depression, Anxiety, Mood swings or Panic attacks Endocrine Reports: Fatigue; Denies: Excessive urination or Excessive thirst Hematologic/Lymphatic Denies: Anemia, Easy bruising or Easy bleeding Allergic/Immunologic Denies: Hives, Tongue swelling, Facial swelling or Wheezing Exam Exam Vital Signs: Vital Signs x48h Temp Pulse Resp BP Pulse Ox 06/21/24 13:48 94 18 113/76 97 06/21/24 10:22 97.9 F 97 20 101/74 98 Constitutional normal general appearance, no apparent distress, abnormal body habitus (obese), no limitations and alert HENMT normocephalic and head/scalp atraumatic Eyes PERRL, EOMs intact bilaterally and conjunctivae normal Neck/C-Spine visual inspection normal, trachea midline, cervical spine nontender and cervical full ROM noted Chest inspection of chest normal, palpation of chest normal and inspection of breasts normal Respiratory breath sounds equal bilaterally, normal respiratory effort, clear to auscultation bilaterally, no wheezes, no rales and no retractions Cardiovascular normal heart rate noted, regular rhythm noted, no gallop, no rub and no murmur Gastrointestinal abdomen normal to inspection, abdomen soft to palpation, tender to palpation (moderate) and (RUQ), distended, no hepatosplenomegaly and no masses Genitourinary no CVA tenderness Back/Pelvis spine normal to inspection, no thoracic spine tenderness and no lumbar spine tenderness Extremities normal to inspection, normal to palpation, no tenderness and full ROM Neurology developer [employer] systems II-XII intact, no movement abnormality noted and no focal motor deficit noted Psychiatry mental status grossly normal, oriented x3, thought process normal, cooperative and affect normal Skin skin color normal, no rash and no lesions Conclusion/Plan Problem List (1) Abscess of liver: Plan: Patient with 3 months of decreased appetite, weight loss, abdominal pain, fevers, chills. CT abdomen/pelvis shows extensive right lobe liver abscess. IR consulted: Plan for CT-guided drainage, possible drain placement. General surgery consulted for management. Will start Zosyn. Culture will be sent from abscess drainage, and will tailor antibiotics for this. Blood cultures ordered, pending. CT abdomen also shows diffuse thickening of the rectosigmoid region. Patient states he had a colonoscopy 1 year ago, but is unclear where this was done. Will request records when able. Patient will need repeat colonoscopy as well when clinically stable. (2) Leukocytosis: Plan: Elevated in setting of above. Continue to trend. Qualifiers: Leukocytosis type: unspecified Qualified Code(s): D72.829 - Elevated white blood cell count, unspecified (3) HTN (hypertension), benign: Plan: Was prescribed lisinopril in the outpatient setting, but has not been taking it. Will continue to monitor blood pressure here. (4) Bipolar 1 disorder: Plan: Multiple behavioral health notes which demonstrate noncompliance. Was prescribed Seroquel in the past, but is not currently taking it. Continue Wellbutrin at this time. Not actively psychotic, no active suicidal or homicidal ideation noted. Lab Results Lab results reviewed: Yes 06/21/24 10:37 06/21/24 10:37 Diagnostic Imaging Results Diagnostic Imaging Results: positive Final report reviewed Core Measures Anticipated LOS I expect patient to be DC'd or transferred within 96 hours.: Yes Issues Hospital Issues and Management Plan: None anticipated. DVT/VTE - Prophylaxis VTE/DVT Device ordered at admit?: Yes VTE/DVT Prophylaxis med ordered at admit?: Yes
--- OUTSIDE RECORDS SUMMARY | 2024-06-21 14:50 | EXTERNAL MEDICAL SUMMARY RPT | Continuity of Care Document ---
Author Organization [facility] Address [address] [place] [id number] Phone Problems date description facility 2024-04-03 08:44 Other chronic pain [facility] 2024-04-03 08:44 Chest pain, unspecified [facility] [...] 2024-05-16 12:44 Other specified disorders of pe [facility] Results/Labs test date facility value unit notes Result panel 1 SARS-CoV-2 -RESP PCR PANEL 2024-05-16 09:59 [facility] NOT DETECTED (missing) A negative test result for this test indicates that SARS-CoV-2 RNA was not present in the specimen above the limit of detection. Testing performed on the [employer] RP2.1 Panel, a multiplexed nucleic acid repiratory [...] INFLUENZA A- RESP PCR PANEL 2024-05-16 09:59 [facility] NOT DETECTED (missing) Influenza A including subtypes H1, H3, and H1-2009 not detected by the BioFire RP2.1 Panel, a multiplexed nucleic acid test intended for the simultaneous qualitative detection and differentiation of nucleic acids from multiple viral and bacterial respiratory organisms. B. PARAPERTUSSIS- RESP PCR LEGER 2024-05-16 09:59 [facility] NOT DETECTED (missing) Negative results for this organism do not preclude infection with this organism and may require additional laboratory testing (e.g., bacterial and viral culture, immunofluorescence, and radiography) when evaluating a patient with possible respiratory tract infection. B. PERTUSSIS- RESP PCR PANEL 2024-05-16 09:59 [facility] NOT DETECTED (missing) Negative results for this organism do not preclude infection with this organism and may require additional laboratory testing (e.g., bacterial and viral culture, immunofluorescence, and radiography) when evaluating a patient with possible respiratory tract infection. C. PNEUMONIAE- RESP PCR PANEL 2024-05-16 09:59 [facility] NOT DETECTED (missing) Negative results for this [...] not be detected by nasopharyngeal specimen. CORONAVIRUS EF38-DWFA PCR 2024-05-16 09:59 [facility] NOT DETECTED (missing) Negative results in the setting ofa respiratory illness may be due to infection with pathogens not detected by this test, or lower respiratory tract infection that may not be detected by nasopharyngeal specimen. CORONAVIRUS HI64-BOQO PCR 2024-05-16 09:59 [facility] NOT DETECTED [...] 0.6 10 3/ul (missing) BILIRUBIN,TOTAL 2024-05-16 11:24 [facility] 1.1 mg /dl As of August 2022 testing method has changed, this may include reference ranges. LACTIC ACID, VENOUS 2024-05-16 11:24 [facility] 1.1 mmol/l N As of August 2022 testing method has changed, this may include reference ranges. ALBUMIN/GLOBULIN RATIO 2024-05-16 11:24 [facility] 1.2 (missing) (missing) CREATININE 2024-05-16 11:24 [facility] 1.2 mg/dl As of August 2022 testing method has changed, this may include reference ranges. CHLORIDE 2024-05-16 11:24 [facility] 100 mmol/l As of August 2022 testing method has changed, this may include reference ranges. ANION GAP 2024-05-16 11:24 [facility] 11.0 (missing ) (missing) GLUCOSE 2024-05-16 11:24 [facility] 117 mg/dl As of August 2022 testing method has changed, this may include reference ranges. RED CELL DISTRIBUTION WIDTH 2024-05-16 11:24 [facility] 13.2 % (missing) SODIUM 2024-05-16 11:24 [facility] 132 mmol/l As of August 2022 testing method has changed, this may include reference ranges. HGB - HEMOGLOBIN 2024-05-16 11:24 [facility] 14.6 g /dl (missing) NEUTROPHILS # (AUTO) 2024-05-16 11:24 [facility] 18.8 10 3/ul (missing) MONOCYTES # (AUTO) 2024-05-16 11:24 [facility] 2.2 10 3/ul (missing) CARBON DIOXIDE - CO2 2024-05-16 11:24 [facility] 21 mmol/l As of August 2022 testing method has changed, this may include reference ranges. WHITE BLOOD COUNT 2024-05-16 11:24 [facility] 21.9 x10 3/ul (missing) PLT - PLATELET COUNT 2024-05-16 11:24 [facility] 242 10 3/ul (missing) BUN - BLOOD UREA NITROGEN 2024-05-16 11:24 [facility] 27 mg/dl As of Aug testing method has changed, this may include reference ranges. GLOBULIN 2024-05-16 11:24 [facility] 3.4 g/dl (missing) POTASSIUM 2024-05-16 11:24 [facility] 3.8 mmol/l As of August 2022 testing method has changed, this may include reference ranges. MEAN CORPUSCULAR HEMOGLOBIN 2024-05-16 11:24 [facility] 32.7 pg (missing) MEAN CORPUSCULAR HGB CONC 2024-05-16 11:24 [facility] 33.2 g/dl (missing) AST ASPARTATE AMINOTRANSFERASE 2024-05-16 11:24 [facility] 36 iu/l As of August 2022 testing method has changed, this may include reference ranges. ALT ALANINE AMINOTRANSFERASE 2024-05-16 11:24 [facility] 36 iu/l As of August 2022 testing method has changed, this may include reference ranges. ALBUMIN 2024-05-16 11:24 [facility] 4.0 g/dl As of August 2022 testing method has changed, this may include reference ranges. RED BLOOD COUNT 2024-05-16 11:24 [facility] 4.46 10 6/ul (missing) HCT - HEMATOCRIT 2024-05-16 11:24 [facility] 44.0 % (missing) GFR - MDRD 2024-05-16 11:24 [facility] 60 (jose farfan) Social History date description facility
[2024-06-21] MEDS: fentaNYL 100 MCG/2 ML VIAL IVP STA (15:04)
[2024-06-21] MEDS: LIDOCAINE-MPF 1% 5 ML VIAL TD ONE (15:53)
--- NOTE | 2024-06-21 15:58 | CONSULTATION NOTE ---
History of Present Illness History of Present Illness HPI Comment/Other: Overall unreliable historian/noncompliant with interview/exam, complaining of 10/10 pain after drain placement and writhing in bed. He has a psychiatric history involving BP1/ADHD. States he presented to ED because of abdominal that has been going on for 6mo; he has been trying to get it under control by gardening. Chart review shows several ED and WIC visits in the last 6 mo for a myriad of issues (chest pain, blood pressure, MSK injuries/pain) without mention of this abdominal pain; medical and treatment noncompliance is also documented. Goes 3-4d between bowel movements, denies blood in stool. Doesn't much because it makes the constipation worse. He says he [place] within the last year - his ex girlfriend knows the name of the facility and he will try to ask her. [facility] Active Problems All Active Problems (Updated 06/21/24 @ 15:51 by Eva Rowe DO) Concern about digestive 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 diagnosis (Acute) Leukocytosis (Acute) Abscess of liver (Acute) Pain in penis (Acute) Lower extremity pain (Acute) Left thigh pain (Acute) Multiple medical problems (Acute) Left knee sprain (Acute) Non-adherence to medical treatment (Acute) Chronic chest pain (Acute) Anxiety associated with depression (Acute) Poor concentration (Acute) Abnormal food appetite (Acute) Dysuria (Acute) HTN (hypertension), benign (Acute) Unspecified injury of muscle, fascia and tendon of the posterior muscle group at thigh level, left thigh, initial encounter (Acute 05/05/18) Sleep apnea (Acute 03/19/23) Pain, joint, knee, left (Acute 06/16/23) Elevated blood pressure reading without diagnosis of hypertension (Acute 03/31/23) Bipolar 1 disorder (Acute 03/19/23) Needs assistance with community resources (Acute) Elevated blood pressure reading in office with diagnosis of hypertension (Acute) Strain of left knee and leg (Acute) Muscle cramps (Acute) Medical History Medical History (Updated 06/21/24 @ 15:51 by Eva Rowe DO) Elevated blood pressure reading Bipolar I disorder with mood-incongruent psychotic features Impingement syndrome of right shoulder (12/01/16) Bright red blood per rectum (04/05/17) Shoulder pain, right (11/30/16) Pruritus ani (04/05/17) Presbyopia (05/26/23) Pain in left hip (08/03/18) Lesion of skin of face (06/16/23) Hemorrhoids, internal (04/05/17) Erectile dysfunction (06/16/23) Emphysema (subcutaneous) resulting from a procedure, subsequent encounter (03/19/23) Diverticulosis (05/05/23) Chest pain (03/19/23) Aphasia (06/16/23) Abnormal abdominal MRI (05/05/23) Strain of right calf muscle Surgical History Surgical History (Updated 06/21/24 @ 15:41 by Eva Rowe DO) History of cholecystectomy Family History Family History Daughter Drug abuse Son Drug abuse Social History Social History Smoking Status: Former smoker If you are a former smoker, when did you quit? (Date/Year): 2004 Second hand tobacco smoke exposure: No Do you dip or chew tobacco?: No Do you vape?: No Living arrangement: At home Marital Status: Living Condition: Alone Relationship: Physical Activity: Weight-lifting How many days per week?: 3 Level: Independent Physical - Functional Details: pt does not engage in exercise program Do you feel safe in your home environment?: Yes Suffered physical, verbal, emotional, or financial abuse?: No History of Abuse: No ETOH Use: Wine Frequency: Daily Number of Amount/day: 1 ETOH Use Details: pt has hx of AUD Substance Use: cannabis (any form) Substance Use Details: 4-5 joints daily Are you sexually active?: No 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; 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; [employer] Retired: No Service: No Are you following a diet prescribed by a doctor: No Are you following a special diet: No Meds/Allgy Home Medications Ambulatory Orders Medication Instructions Recorded Confirmed meloxicam 15 mg tablet 15 mg PO QDAY 90 days #180 tabs 04/10/24 04/12/24 quetiapine 25 mg tablet See Rx Instructions PO ONCE HS #90 04/10/24 04/12/24 tabs methocarbamol 750 mg tablet 750 mg PO Q6H #60 tabs 04/12/24 04/12/24 meloxicam 15 mg tablet 15 mg PO DAILY #30 tabs 04/26/24 doxycycline hyclate 100 mg tablet 100 mg PO BID #14 tabs 05/16/24 bupropion HCl 150 mg tablet,12 hr 150 mg PO BID 06/21/24 06/21/24 sustained-release Allergies Allergies Allergy/AdvReac Type Severity Reaction Status Date / Time Penicillins Allergy Severe fainting Verified 06/21/24 10:25 Results Lab Results Lab results reviewed: Yes 06/21/24 10:37 06/21/24 10:37 Other Lab Results: Lab Results x24hrs 06/21/24 06/21/24 Range/Units 13:13 10:37 WBC 21.6 H (4.8-10.8) x10^3/uL RBC 3.34 L (4.70-6.10) 10^6/uL Hgb 10.5 L (14.0-18.0) g/dL Hct 32.6 L (42.0-52.0) % MCV 97.6 H (80.0-94.0) fL MCH 31.4 H (27.0-31.0) pg MCHC 32.2 (32.0-36.0) g/dL RDW 13.5 (12.0-15.0) % Plt Count 462 H (130-450) 10^3/uL MPV 9.9 (7.4-11.4) fL Neut # (Auto) Not Reportable Lymph # (Auto) Not Reportable Luna # (Auto) Not Reportable Eos # (Auto) Not Reportable Baso # (Auto) Not Reportable Absolute Nucleated RBC Not Reportable Total Counted 100 Band Neuts % (Manual) 2 (0 - 10) % Reactive Lymphs % (Man) 3 % Abnorm Lymph % (Manual) 0 % Nucleated RBC % Not Reportable Neutrophils # (Manual) 18.4 H (1.5-6.6) 10^3/uL Lymphocytes # (Manual) 0.9 L (1.5-3.5) 10^3/uL Monocytes # (Manual) 2.4 H (0.0-1.0) 10^3/uL Eosinophils # (Manual) 0.0 (0-0.7) 10^3/uL Basophils # (Manual) 0.0 (0-0.1) 10^3/uL Differential Comment MANUAL DIFFERENTIAL Platelet Estimate INCREASED (>450,000) (NORMAL) RBC Morph Micro Appear 1+ ANISOCYTOSIS (NORMAL) PT 20.4 H (9.9-12.6) secs INR 1.8 H (0.8-1.2) APTT 30.6 (24.9-33.3) secs Sodium 130 L (135-145) mmol/L Potassium 4.0 (3.5-4.5) mmol/L Chloride 96 L (101-111) mmol/L Carbon Dioxide 23 (21-32) mmol/L Anion Gap 11.0 (6-13) BUN 19 (6-20) mg/dL Creatinine 1.1 (0.6-1.3) mg/dL Estimated GFR (MDRD) 67 L (>89) Glucose 107 H (74-104) mg/dL Calcium 8.4 L (8.5-10.3) mg/dL Total Bilirubin 1.4 H (0.2-1.0) mg/dL AST 60 H (10-42) IU/L ALT 78 H (10-60) IU/L Alkaline Phosphatase 109 (42-121) IU/L Total Protein 7.8 (6.4-8.9) g/dL Albumin 3.2 (3.2-5.5) g/dL Globulin 4.6 H (2.1-4.2) g/dL Albumin/Globulin Ratio 0.7 L (1.0-2.2) Lipase < 10 L (11-82) U/L Diagnostic Imaging Results Diagnostic Imaging Results: positive Read contemporaneously Diagnostic Imaging Results Comments: PROCEDURE: CT Abdomen/Pelvis W INDICATIONS: R sided abd pain CONTRAST: 100ml omni 300 TECHNIQUE: After the administration of intravenous contrast, a CT scan of the abdomen and pelvis was performed. Images were recorded and evaluated at appropriate window settings. Reformats: coronal and sagittal. For radiation dose reduction, the following was used: automated exposure control, adjustment of mA and/or kV according to patient size. COMPARISON: 05/03/2023. FINDINGS: Image quality: Diagnostic. Lower chest: Unremarkable. Liver: Probable multiloculated very large right lobe liver abscess which on image 52 of series 2 measures approximately 7.0 x 15.5 cm. It measures approximately 8.4 cm on coronal reformatted image 55 of series 4. Necrotic metastatic disease is less likely. No liver lesions were present on the previous study.. Gallbladder: Absent Biliary tree: No intrahepatic or extrahepatic dilation, accounting for age. Spleen: No splenomegaly. Pancreas: No pancreatic ductal dilation. Adrenals: No adrenal nodule. Kidneys and ureters: No hydronephrosis. No renal cystic lesion which requires follow up. No solid mass. Stomach, bowel and peritoneum: No gastric or small bowel dilation. Again noted is extensive sigmoid diverticulosis with an area of wall thickening in the region of the rectosigmoid. Findings are unchanged.. No pathologic free fluid. Lymph nodes: No central or retroperitoneal adenopathy. Vessels: No infrarenal aortic aneurysm. Patent portal vein. PELVIS Reproductive organs: Unremarkable. Bladder: No abnormal wall thickening. Pelvic lymph nodes: No pelvic adenopathy by size criteria. Bones: No aggressive osseous abnormality. Other: No significant ventral or inguinal hernia. IMPRESSION: 1. New findings in the liver most likely represent extensive right lobe liver abscess. Necrotic metastatic disease less likely. Of note, there are no liver lesions on the previous study. 2. Extensive sigmoid diverticulosis as seen previously, with diffuse thickening in the region of the rectosigmoid, also similar to previous. Comments: The liver process would be amenable to CT-guided sampling and drainage. Recommend nonemergent colonoscopy if this has not yet been accomplished since the previous study to exclude a rectosigmoid lesion. Above discussed with Yossi Handley MD at the time of dictation on 06/21/2024 at 1221 hours. Reviewed by: Jeevan Castellon MD on 06/21/2024 12:27 PM PDT Review of Systems Status of ROS: unobtainable due to mental status Exam Exam Vital Signs: Vital Signs x48h Temp Pulse Resp BP Pulse Ox 06/21/24 13:48 94 18 113/76 97 06/21/24 10:22 36.6 C 97 20 101/74 98 Constitutional distress noted (mild) and average body habitus HENMT normocephalic Respiratory normal respiratory effort Cardiovascular tachycardic, normotensive Gastrointestinal unexaminable while writhing; foul smelling friedman-brown purulent thick fluid in IR drain bag Psychiatry oriented x3, thought process abnormality noted, uncooperative and affect abnormality noted Skin skin color normal Conclusion/Plan Problem List (1) Abscess of liver: Plan: 68yoM admitted to the IM service with large liver abscess of right lobe measuring 15 x 8 x 7 cm. Leukocytosis to 21 without HD instability. As for possible underlying etiology, CT abd/pel shows segment of significant sigmoid diverticulosis with wall thickening (?chronic diverticulitis) and also diffuse rectosigmoid wall thicking suspicious for malignancy, that was also seen one year ago on CT. He also indicates going 3-4d between bowel movements. There were no liver lesions on 2023 CT; ddx of abscess includes necrotic metastasis. - s/p IR 12 Fr drain placement 06/21 - foul purulent thick fluid (15cc out on drain placement and sent for culture) - f/u drain cultures - trend drain output - broad spectrum empiric abx to cover GI nadia, tailor to drain cultures - recommend blood cultures - ideally complete a rectal exam if/when patient is compliant - ?able to find colonoscopy report from the last year - flex sig (with enema) vs colonoscopy (with bowel prep) to rule in/out rectosigmoid malignancy - CT chest and CEA if malignancy is proven Eva Rowe DO, FACS General Surgeon, [facility] (2) Concern about digestive 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 diagnosis: (3) Leukocytosis: Qualifiers: Leukocytosis type: unspecified Qualified Code(s): D72.829 - Elevated white blood cell count, unspecified (4) HTN (hypertension), benign: (5) Bipolar 1 disorder: Lab Results Lab results reviewed: Yes 06/21/24 10:37 06/21/24 10:37 Diagnostic Imaging Results Diagnostic Imaging Results: positive Read contemporaneously
[2024-06-21] MEDS ORDERED: MORPHINE 2 MG/ML CARPUJECT IVP PRN (16:00)
[2024-06-21] MEDS: MORPHINE 2 MG/ML CARPUJECT IVP PRN (16:02)
--- NOTE | 2024-06-21 16:14 | CT Report ---
PROCEDURE: CT liver abscess drain INDICATIONS: Liver abscess TECHNIQUE: The indications, alternatives, benefits, risks, and possible complications of the procedure were comm unicated to the patient. Informed written consent from the patient was obtained and placed in the art. Continuous EKG and hemodynamic monitoring was started by trained personnel. For radiation dose reduction, the following was used: automated exposure control, adjustment of mA and/or kV according to patient size. The patient was brought to the CT suite and shredding machine knife changer spiral CT imaging was performed with localization g rid with the patient in the left side down decubitus position. The appropriate site for percutaneous access to the biopsy target was marked, was prepped and draped sterilely, and was infused with local anaesthesia. Under CT guidance, a trocar Chiba needle was advanced to the biopsy target. Purulent f luid was aspirated. A guidewire was inserted through the needle and into the abscess cavity. A 12 Quang nch pigtail drainage catheter was placed over the wire and into the abscess cavity. The wire was jen brody. Intraprocedural imaging was obtained to confirm placement. The pigtail train was secured. Additi onal fluid was aspirated. Post procedural imaging was obtained with IV contrast. COMPARISON: CT abdomen and pelvis earlier today. FINDINGS: Drainage site: Right lower liver Drain: 12 [place]ar[place]uan tail drainage catheter. Medications: 1% lidocaine for local anaesthesia. IV Fentanyl was administered for pain control. Complications: No significant postprocedural hemorrhage. The sample has a blood tinge to it. Approximately 15 cc purulent fluid was aspirated and sent for culture. IMPRESSION: Successful CT-guided right liver abscess aspiration and pigtail drain placement. Reviewed by: Adalid Robles MD on 06/21/2024 4:13 PM PDT Approved by: Adalid Robles MD on 06/21/2024 4:13 PM PDT Station ID: [id number]
[2024-06-21 16:20] LABS: BILIRUBIN,URINE NEGATIVE (NEGATIVE); GLUCOSE, URINE (UA) NEGATIVE (NEGATIVE); KETONES,URINE (UA) NEGATIVE (NEGATIVE); LEUKOCYTE ESTERASE, URINE NEGATIVE (NEGATIVE); NITRITE,URINE NEGATIVE (NEGATIVE); OCCULT BLOOD,URINE NEGATIVE (NEGATIVE); PH,URINE 5.5 PH (5.0-7.5); PROTEIN,URINE 30 mg/dL (NEGATIVE); UROBILINOGEN,URINE 4 E.U./dL (NORMAL)
[2024-06-21 16:22] LABS: CLARITY,URINE CLEAR (CLEAR)
[2024-06-21 16:25] LABS: BACTERIA,URINE None Seen /HPF (None Seen); MUCUS,URINE Few Strands; RBC,URINE 0-5 /HPF (0-5); SQUAMOUS EPITHELIAL CELL,UR RARE Squamous (<= Few); WBC,URINE 0-3 /HPF (0-3)
[2024-06-21] MEDS: metroNIDAZOLE 500 MG/100 ML 500 MG/100 ML BAG IV SCH (16:29)
[2024-06-21] MEDS: SODIUM CHLORIDE FLUSH 0.9% 10 ML SYRINGE IVP SCH (16:30)
[2024-06-21] MEDS: LORazepam 2 MG/ML VIAL IVP ONE (16:36)
[2024-06-21] MEDS: HYDROmorphone 1 MG/ML CARPUJECT IVP PRN (17:26)
[2024-06-21] MEDS: cefTRIAXone 2 GM VIAL IVP SCH (17:27)
[2024-06-21] MEDS: ACETAMINOPHEN 325 MG TABLET PO PRN (21:37)
[2024-06-21] MEDS: buPROPion SR 150 MG TABLET PO SCH (21:37)
[2024-06-22 05:54] LABS: HCT - HEMATOCRIT 33.2 % (42.0-52.0); HGB - HEMOGLOBIN 10.6 g/dL (14.0-18.0); MEAN CORPUSCULAR HEMOGLOBIN 31.8 pg (27.0-31.0); MEAN CORPUSCULAR HGB CONC 31.9 g/dL (32.0-36.0); MEAN CORPUSCULAR VOLUME 99.7 fL (80.0-94.0); MEAN PLATELET VOLUME 10.7 fL (7.4-11.4); RED BLOOD COUNT 3.33 10^6/uL (4.70-6.10); RED CELL DISTRIBUTION WIDTH 13.6 % (12.0-15.0); WHITE BLOOD COUNT 21.7 x10^3/uL (4.8-10.8)
[2024-06-22 06:18] LABS: ALBUMIN/GLOBULIN RATIO 0.7 (1.0-2.2); BILIRUBIN,TOTAL 1.6 mg/dL (0.2-1.0); CALCIUM 8.3 mg/dL (8.5-10.3); MAGNESIUM 2.2 mg/dL (1.7-2.3); POTASSIUM 4.1 mmol/L (3.5-4.5); TOTAL PROTEIN 7.2 g/dL (6.4-8.9)
--- NOTE | 2024-06-22 08:35 | PROVIDER PROGRESS NOTE ---
Subjective General Admit Date: 06/21/24 Other Other Information/Narrative: Patient reports pain when he coughs. He is upset that he was without water for several days and only slightly consoled that he is now able to have clear liquids. He denies any fevers or chills. He denies any nausea or vomiting. He lists several people he would like me to call including an ex girlfriend. Wound Assessment Drain Type: perc drain in hepatic abscess Drain Output Description: green, purulent Approximate mls Output: 80mL since placement Exam Exam Vital Signs: Vital Signs x48h Temp Pulse Resp BP Pulse Ox 06/22/24 07:28 98.1 F 101 H 22 109/65 95 GEN: No acute distress CV: mild tacycardia PULM: non labored, on RA ABD: soft, RUQ ttp, no rebound or guarding. Perc drain in place with purulent output EXT: no clubbing, cyanosis, or edema ABX Reporting Has patient been on IV antibiotics over the past 48 hours?: Yes Impression/Plan Problem List (1) Abscess of liver: Plan: - IR guided perc drain placed 06/21. 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 If unable to get a report by 06/23, recommend bowel prep for colonoscopy here. (3) Leukocytosis: Plan: improving with drain, abx Qualifiers: Leukocytosis type: unspecified Qualified Code(s): D72.829 - Elevated white blood cell count, unspecified (4) HTN (hypertension), benign: (5) Bipolar 1 disorder:
[2024-06-22] MEDS: ENOXAPARIN 40 MG/0.4 ML SYRINGE SUBQ SCH (08:40)
--- NOTE | 2024-06-22 11:33 | PROVIDER PROGRESS NOTE ---
Subjective Subjective Subjective: Patient still has some pain around his abdominal site, where the drain is. He is very restless. He believes he has had a colonoscopy in the past year, but is unable to provide further details about this. Current Medications Current Medications Current Medications: Current Medications Generic Name Dose Route Start Last Admin Trade Name Freq PRN Reason Stop Dose Admin Acetaminophen 650 mg 06/21/24 16:00 06/22/24 08:41 Acetaminophen 325 Mg Tablet PO 650 mg Q4HR PRN Administration Pain 1 to 4, or Fever Hydrocodone Bitart/Acetaminophen 1 tab 06/21/24 17:13 Hydrocod/Acetam 5/325 Mg Tablet PO Q4HR PRN Moderate Pain (Level 4-6) Bupropion HCl 150 mg 06/21/24 21:00 06/22/24 08:40 Bupropion Sr 150 Mg Tablet PO 150 mg BID RICARDO Administration Ceftriaxone Sodium 2 gm 06/21/24 15:00 06/22/24 08:38 Ceftriaxone 2 Gm Vial IVP 2 gm DAILY RICARDO Administration Enoxaparin Sodium 40 mg 06/22/24 09:00 06/22/24 08:40 Enoxaparin 40 Mg/0.4 Ml Syringe SUBQ 40 mg DAILY RICARDO Administration Hydromorphone HCl 1 mg 06/21/24 17:12 06/22/24 08:40 Hydromorphone 1 Mg/Ml Carpuject IVP 1 mg Q2HR PRN Administration Severe Pain (Level 7-10) Metronidazole 500 mg in 100 mls @ 100 mls/hr 06/21/24 15:00 06/22/24 08:40 Flagyl 500 Mg/100 Ml IV Infused Q8H RICARDO Infusion Ondansetron HCl 4 mg 06/21/24 16:00 Ondansetron 4 Mg/2 Ml Vial IVP Q6HR PRN Nausea / Vomiting Ondansetron HCl 4 mg 06/21/24 16:00 Ondansetron Odt 4 Mg Tablet TL Q6HR PRN Nausea / Vomiting Sodium Chloride 10 ml 06/21/24 16:00 Sodium Chloride Flush 0.9% 10 Ml Syringe IVP PRN PRN NEEDED PER PROVIDER ORDERS Sodium Chloride 10 ml 06/21/24 17:00 06/22/24 08:40 Sodium Chloride Flush 0.9% 10 Ml Syringe IVP 10 ml 0100,0900,1700 RICARDO Administration Sterile Water 20 ml 06/21/24 15:00 06/22/24 08:38 Water For Injection,Sterile 10 Ml Vial MC 20 ml DAILY RICARDO Administration Objective Vital Signs/Intake & Output Reviewed Vital Signs: Yes Vital Signs: Vital Signs x48h Temp Pulse Resp BP Pulse Ox 06/22/24 07:28 98.1 F 101 H 22 109/65 95 Intake & Output: Intake & Output 06/19/24 06/20/24 06/21/24 06/22/24 23:59 23:59 23:59 23:59 Intake Total 1700 / 1700 500 / 500 Output Total 515 / 515 310 / 310 Balance 1185 / 1185 190 / 190 Weight (kg) 90 kg Objective General Appearance: positive No acute distress, Alert and Anxious Eyes Bilateral: positive Normal inspection, PERRL and EOMI ENT: positive ENT inspection nml, Pharynx nml and No signs of dehydration Neck: positive Nml inspection, Thyroid nml and No JVD Respiratory: positive Chest non-tender, No respiratory distress and Breath sounds nml; negative Wheezes, Rales or Rhonchi Cardiovascular: positive Regular rate & rhythm, No murmur and No gallop Abdomen: positive No organomegaly, Nml bowel sounds, No distention and Tenderness (RLQ, RUQ tenderness to palpation; drain in place) Back: positive Nml inspection; negative CVA tenderness (R) or CVA tenderness (L) Skin: positive Color nml, No rash and Dry Extremities: positive Non-tender, Full ROM, Nml appearance and No pedal edema Neurologic/Psychiatric: positive Oriented x3, Motor nml and Mood/affect nml Lab Results 06/22/24 05:23 06/22/24 05:23 Other Labs: Lab Results x24hrs 06/22/24 06/21/24 06/21/24 Range/Units 05:23 16:05 13:13 WBC 21.7 H (4.8-10.8) x10^3/uL RBC 3.33 L (4.70-6.10) 10^6/uL Hgb 10.6 L (14.0-18.0) g/dL Hct 33.2 L (42.0-52.0) % MCV 99.7 H (80.0-94.0) fL MCH 31.8 H (27.0-31.0) pg MCHC 31.9 L (32.0-36.0) g/dL RDW 13.6 (12.0-15.0) % Plt Count 362 (130-450) 10^3/uL MPV 10.7 (7.4-11.4) fL PT 20.4 H (9.9-12.6) secs INR 1.8 H (0.8-1.2) APTT 30.6 (24.9-33.3) secs Sodium 131 L (135-145) mmol/L Potassium 4.1 (3.5-4.5) mmol/L Chloride 99 L (101-111) mmol/L Carbon Dioxide 22 (21-32) mmol/L Anion Gap 10.0 (6-13) BUN 23 H (6-20) mg/dL Creatinine 1.0 (0.6-1.3) mg/dL Estimated GFR (MDRD) 74 L (>89) Glucose 142 H (74-104) mg/dL Calcium 8.3 L (8.5-10.3) mg/dL Magnesium 2.2 (1.7-2.3) mg/dL Total Bilirubin 1.6 H (0.2-1.0) mg/dL AST 42 (10-42) IU/L ALT 63 H (10-60) IU/L Alkaline Phosphatase 117 (42-121) IU/L Total Protein 7.2 (6.4-8.9) g/dL Albumin 3.0 L (3.2-5.5) g/dL Globulin 4.2 (2.1-4.2) g/dL Albumin/Globulin Ratio 0.7 L (1.0-2.2) Urine Color YELLOW Urine Clarity CLEAR (CLEAR) Urine pH 5.5 (5.0-7.5) PH Ur Specific Humble 1.010 (1.002-1.030) Urine Protein 30 H (NEGATIVE) mg/dL Urine Glucose (UA) NEGATIVE (NEGATIVE) mg/dL Urine Ketones NEGATIVE (NEGATIVE) mg/dL Urine Occult Blood NEGATIVE (NEGATIVE) Urine Nitrite NEGATIVE (NEGATIVE) Urine Bilirubin NEGATIVE (NEGATIVE) Urine Urobilinogen 4 H (NORMAL) E.U./dL Ur Leukocyte Esterase NEGATIVE (NEGATIVE) Urine RBC 0-5 (0-5) /HPF Urine WBC 0-3 (0-3) /HPF Ur Squamous Epith Cells RARE Squamous (<= Few) Urine Bacteria None Seen (None Seen) /HPF Urine Mucus Few Strands Ur Microscopic Review INDICATED Urine Culture Comments NOT INDICATED Ethyl Alcohol mg/dL 06/21/24 Range/Units 10:37 WBC (4.8-10.8) x10^3/uL RBC (4.70-6.10) 10^6/uL Hgb (14.0-18.0) g/dL Hct (42.0-52.0) % MCV (80.0-94.0) fL MCH (27.0-31.0) pg MCHC (32.0-36.0) g/dL RDW (12.0-15.0) % Plt Count (130-450) 10^3/uL MPV (7.4-11.4) fL PT (9.9-12.6) secs INR (0.8-1.2) APTT (24.9-33.3) secs Sodium (135-145) mmol/L Potassium (3.5-4.5) mmol/L Chloride (101-111) mmol/L Carbon Dioxide (21-32) mmol/L Anion Gap (6-13) BUN (6-20) mg/dL Creatinine (0.6-1.3) mg/dL Estimated GFR (MDRD) (>89) Glucose (74-104) mg/dL Calcium (8.5-10.3) mg/dL Magnesium (1.7-2.3) mg/dL Total Bilirubin (0.2-1.0) mg/dL AST (10-42) IU/L ALT (10-60) IU/L Alkaline Phosphatase (42-121) IU/L Total Protein (6.4-8.9) g/dL Albumin (3.2-5.5) g/dL Globulin (2.1-4.2) g/dL Albumin/Globulin Ratio (1.0-2.2) Urine Color Urine Clarity (CLEAR) Urine pH (5.0-7.5) PH Ur Specific Humble (1.002-1.030) Urine Protein (NEGATIVE) mg/dL Urine Glucose (UA) (NEGATIVE) mg/dL Urine Ketones (NEGATIVE) mg/dL Urine Occult Blood (NEGATIVE) Urine Nitrite (NEGATIVE) Urine Bilirubin (NEGATIVE) Urine Urobilinogen (NORMAL) E.U./dL Ur Leukocyte Esterase (NEGATIVE) Urine RBC (0-5) /HPF Urine WBC (0-3) /HPF Ur Squamous Epith Cells (<= Few) Urine Bacteria (None Seen) /HPF Urine Mucus Ur Microscopic Review Urine Culture Comments Ethyl Alcohol < 10.0 mg/dL Diagnostic Imaging Diagnostic Imaging Results: positive Final report reviewed Assessment/Plan Problem List (1) Abscess of liver: Impression: Patient with 3 months of decreased appetite, weight loss, abdominal pain, fevers, chills. CT abdomen/pelvis shows extensive right lobe liver abscess. IR consulted: Plan for CT-guided drainage, possible drain placement. General surgery consulted for management. Will start Rocephin and flagyl. Culture will be sent from abscess drainage, and will tailor antibiotics for this. Preliminary results show gram positive cocci. Blood cultures ordered, pending. CT abdomen also shows diffuse thickening of the rectosigmoid region. Patient states he had a colonoscopy 1 year ago, but is unclear where this was done. Will request records when able. Patient will need repeat colonoscopy as well when clinically stable. May require prep and completion here. (2) Sepsis: Impression: Patient with tachycardia, tachypnea, fevers, as well as leukocytosis. Source being liver abscess as stated above. Treatment as above, including Rocephin and Flagyl. Qualifiers: Sepsis acute organ dysfunction status: without acute organ dysfunction Sepsis type: sepsis due to unspecified organism Qualified Code(s): A41.9 - Sepsis, unspecified organism (3) Leukocytosis: Impression: Elevated in setting of above. Continue to trend. Qualifiers: Leukocytosis type: unspecified Qualified Code(s): D72.829 - Elevated white blood cell count, unspecified (4) HTN (hypertension), benign: Impression: Was prescribed lisinopril in the outpatient setting, but has not been taking it. Will continue to monitor blood pressure here. (5) Bipolar 1 disorder: Impression: Multiple behavioral health notes which demonstrate noncompliance. Was prescribed Seroquel in the past, but is not currently taking it. Continue Wellbutrin at this time. Not actively psychotic, no active suicidal or homicidal ideation noted.
--- NOTE | 2024-06-22 12:43 | PHARMACY PROGRESS NOTE ---
Best Possible Medication History Admit Date and Time: 06/21/24 [id number] Home Medications Medication Instructions Recorded Confirmed Type quetiapine 25 mg tablet See Rx Instructions PO ONCE HS #90 04/10/24 06/22/24 Rx tabs methocarbamol 750 mg tablet 750 mg PO Q6H #60 tabs 04/12/24 06/21/24 Rx meloxicam 15 mg tablet 15 mg PO DAILY #30 tabs 04/26/24 06/21/24 Rx L.acid,par,plant,rham-B.anim,bif,brev,inf,long 1 cap PO DAILY 06/21/24 06/21/24 History 30 billion cell capsule (Probiotic Digestive Health) bupropion HCl 150 mg tablet,12 hr 150 mg PO BID 06/21/24 06/21/24 History sustained-release ibuprofen 200 mg tablet (Advil) 200 mg PO Q8H 06/21/24 06/21/24 History magnesium oxide 250 mg PO DAILY 06/21/24 06/21/24 History zinc gluconate 30 mg tablet 30 mg PO DAILY 06/21/24 06/21/24 History Processed by: Pharmacy Medications reviewed in ED?: No Medication History completed: Yes Patient Interview: Completed Secondary Source(s): Pharmacy records and Insurance records [facility] Statement: As the person ultimately responsible for medication therapy, providers are able to order a medication from an existing home medication list in [facility] via the "Reconcile Routine" prior to Confirmation of that medication by it support technician. Such practice is discouraged except when the physician, in their clinical judgment, deems that a medical need exists for a medication without regard to previous use.
[2024-06-22] MEDS: HYDROcod/ACETAM 5/325 MG TABLET PO PRN (12:48)
[2024-06-22] MEDS ORDERED: guaiFENesin/DEXTROMETHORPHAN 10 ML UDC PO PRN (16:02)
[2024-06-22] MEDS: MELATONIN 3 MG TABLET PO SCH (20:42)
[2024-06-22] MEDS ORDERED: OLANZapine 10 MG VIAL IM PRN (21:23)
[2024-06-22] MEDS: ONDANSETRON 4 MG/2 ML VIAL IVP PRN (22:51)
[2024-06-23 06:04] LABS: HGB - HEMOGLOBIN 9.8 g/dL (14.0-18.0); MEAN CORPUSCULAR HEMOGLOBIN 31.6 pg (27.0-31.0); MEAN CORPUSCULAR HGB CONC 32.7 g/dL (32.0-36.0); MEAN CORPUSCULAR VOLUME 96.8 fL (80.0-94.0); MEAN PLATELET VOLUME 10.4 fL (7.4-11.4); RED BLOOD COUNT 3.1 10^6/uL (4.70-6.10); RED CELL DISTRIBUTION WIDTH 13.5 % (12.0-15.0); WHITE BLOOD COUNT 23.5 x10^3/uL (4.8-10.8)
[2024-06-23 06:25] LABS: CALCIUM 8.2 mg/dL (8.5-10.3); CREATININE 0.7 mg/dL (0.6-1.3); MAGNESIUM 2.1 mg/dL (1.7-2.3)
[2024-06-23] MEDS: LACTATED RINGERS 1,000 ML IV SCH (11:03)
[2024-06-23] MEDS: HYDROmorphone 1 MG/ML CARPUJECT IVP PRN (11:04)
--- NOTE | 2024-06-23 11:17 | PROVIDER PROGRESS NOTE ---
Subjective Subjective Subjective: Patient still has some pain around his abdominal site, where the drain is. He states it worsened overnight. The drain is still draining purulent fluid. He believes he has had a colonoscopy in the past year, but is unable to provide further details about this. Current Medications Current Medications Current Medications: Current Medications Generic Name Dose Route Start Last Admin Trade Name Freq PRN Reason Stop Dose Admin Acetaminophen 650 mg 06/21/24 16:00 06/22/24 08:41 Acetaminophen 325 Mg Tablet PO 650 mg Q4HR PRN Administration Pain 1 to 4, or Fever Hydrocodone Bitart/Acetaminophen 1 tab 06/21/24 17:13 06/22/24 12:48 Hydrocod/Acetam 5/325 Mg Tablet PO 1 tab Q4HR PRN Administration Moderate Pain (Level 4-6) Bupropion HCl 150 mg 06/21/24 21:00 06/23/24 09:47 Bupropion Sr 150 Mg Tablet PO 150 mg BID RICARDO Administration Ceftriaxone Sodium 2 gm 06/21/24 15:00 06/23/24 10:22 Ceftriaxone 2 Gm Vial IVP 2 gm DAILY RICARDO Administration Enoxaparin Sodium 40 mg 06/22/24 09:00 06/23/24 09:47 Enoxaparin 40 Mg/0.4 Ml Syringe SUBQ 40 mg DAILY RICARDO Administration Guaifenesin 10 ml 06/22/24 16:02 Guaifenesin/Dextromethorphan 10 Ml Udc PO Q6HR PRN Cough Hydromorphone HCl 1.5 mg 06/23/24 09:31 06/23/24 11:04 Hydromorphone 1 Mg/Ml Carpuject IVP 1.5 mg Q2HR PRN Administration Severe Pain (Level 7-10) Metronidazole 500 mg in 100 mls @ 100 mls/hr 06/21/24 15:00 06/23/24 07:37 Flagyl 500 Mg/100 Ml IV Infused Q8H RICARDO Infusion Lactated Ringer's 1,000 mls @ 75 mls/hr 06/23/24 10:00 06/23/24 11:03 Lr IV 75 mls/hr .[id number] RICARDO Administration Melatonin 3 mg 06/22/24 21:00 06/22/24 20:42 Melatonin 3 Mg Tablet PO 3 mg QPM RICARDO Administration Multivitamins/Minerals 1 tab 06/23/24 10:00 Multivitamin W/Minerals Tablet PO DAILYWM RICARDO Olanzapine 5 mg 06/22/24 21:23 Olanzapine 10 Mg Vial IM 06/23/24 21:22 ONCE PRN Agitation Ondansetron HCl 4 mg 06/21/24 16:00 06/22/24 22:51 Ondansetron 4 Mg/2 Ml Vial IVP 4 mg Q6HR PRN Administration Nausea / Vomiting Ondansetron HCl 4 mg 06/21/24 16:00 Ondansetron Odt 4 Mg Tablet TL Q6HR PRN Nausea / Vomiting Sodium Chloride 10 ml 06/21/24 16:00 Sodium Chloride Flush 0.9% 10 Ml Syringe IVP PRN PRN NEEDED PER PROVIDER ORDERS Sodium Chloride 10 ml 06/21/24 17:00 06/23/24 09:47 Sodium Chloride Flush 0.9% 10 Ml Syringe IVP 10 ml 0100,0900,1700 RICARDO Administration Sterile Water 20 ml 06/21/24 15:00 06/23/24 09:47 Water For Injection,Sterile 10 Ml Vial MC 20 ml DAILY RICARDO Administration Sterile Water 2.1 ml 06/22/24 21:23 Water For Injection,Sterile 10 Ml Vial MC .ONCE PRN Agitation Objective Vital Signs/Intake & Output Reviewed Vital Signs: Yes Vital Signs: Vital Signs x48h Temp Pulse Resp BP Pulse Ox 06/23/24 08:27 97.3 F L 103 H 20 125/78 92 Intake & Output: Intake & Output 06/20/24 06/21/24 06/22/24 06/23/24 23:59 23:59 23:59 23:59 Intake Total 1700 / 1700 1000 / 1000 200 / 200 Output Total 515 / 515 875 / 875 350 / 350 Balance 1185 / 1185 125 / 125 -150 / -150 Weight (kg) 90 kg Objective General Appearance: positive No acute distress, Alert and Anxious Eyes Bilateral: positive Normal inspection, PERRL and EOMI ENT: positive ENT inspection nml, Pharynx nml and No signs of dehydration Neck: positive Nml inspection, Thyroid nml and No JVD Respiratory: positive Chest non-tender, No respiratory distress and Breath sounds nml; negative Wheezes, Rales or Rhonchi Cardiovascular: positive Regular rate & rhythm, No murmur and No gallop Abdomen: positive No organomegaly, Nml bowel sounds, No distention and Tenderness (RLQ, RUQ tenderness to palpation; drain in place) Back: positive Nml inspection; negative CVA tenderness (R) or CVA tenderness (L) Skin: positive Color nml, No rash and Dry Extremities: positive Non-tender, Full ROM, Nml appearance and No pedal edema Neurologic/Psychiatric: positive Oriented x3, Motor nml and Mood/affect nml Lab Results 06/23/24 05:40 06/23/24 05:40 Other Labs: Lab Results x24hrs 06/23/24 Range/Units 05:40 WBC 23.5 H (4.8-10.8) x10^3/uL RBC 3.10 L (4.70-6.10) 10^6/uL Hgb 9.8 L (14.0-18.0) g/dL Hct 30.0 L (42.0-52.0) % MCV 96.8 H (80.0-94.0) fL MCH 31.6 H (27.0-31.0) pg MCHC 32.7 (32.0-36.0) g/dL RDW 13.5 (12.0-15.0) % Plt Count 481 H (130-450) 10^3/uL MPV 10.4 (7.4-11.4) fL Sodium 131 L (135-145) mmol/L Potassium 4.0 (3.5-4.5) mmol/L Chloride 98 L (101-111) mmol/L Carbon Dioxide 25 (21-32) mmol/L Anion Gap 8.0 (6-13) BUN 21 H (6-20) mg/dL Creatinine 0.7 (0.6-1.3) mg/dL Estimated GFR (MDRD) 112 (>89) Glucose 117 H (74-104) mg/dL Calcium 8.2 L (8.5-10.3) mg/dL Magnesium 2.1 (1.7-2.3) mg/dL Diagnostic Imaging Diagnostic Imaging Results: positive Final report reviewed Assessment/Plan Problem List (1) Abscess of liver: Impression: Patient with 3 months of decreased appetite, weight loss, abdominal pain, fevers, chills. CT abdomen/pelvis shows extensive right lobe liver abscess. IR consulted: Drain placed. General surgery consulted for management. Ongoing drainage noted. Will Continue Rocephin and flagyl. Cultures sent from abscess drainage - preliminary results show gram positive cocci. Blood cultures ordered, pending. Patient continues have significant pain at surgical site of drain placement. I have increased his Dilaudid dosage to 1.5 mg every 2 hours as needed to see if it helps provide him some relief. CT abdomen also shows diffuse thickening of the rectosigmoid region. Patient states he had a colonoscopy 1 year ago, but is unclear where this was done. Will request records when able. He has given me the phone number Patient will need repeat colonoscopy as well when clinically stable. May require prep and completion here. (2) Sepsis: Impression: Patient with tachycardia, tachypnea, fevers, as well as leukocytosis. Source being liver abscess as stated above. Treatment as above, including Rocephin and Flagyl. Qualifiers: Sepsis acute organ dysfunction status: without acute organ dysfunction Sepsis type: sepsis due to unspecified organism Qualified Code(s): A41.9 - Sepsis, unspecified organism (3) Leukocytosis: Impression: Elevated in setting of above. Continue to trend. Qualifiers: Leukocytosis type: unspecified Qualified Code(s): D72.829 - Elevated white blood cell count, unspecified (4) HTN (hypertension), benign: Impression: Was prescribed lisinopril in the outpatient setting, but has not been taking it. Will continue to monitor blood pressure here. (5) Bipolar 1 disorder: Impression: Multiple behavioral health notes which demonstrate noncompliance. Was prescribed Seroquel in the past, but is not currently taking it. Continue Wellbutrin at this time. Not actively psychotic, no active suicidal or homicidal ideation noted.
[2024-06-23] MEDS: MULTIVITAMIN W/MINERALS TABLET PO SCH (11:21)
[2024-06-23] MEDS: DOCUSATE SODIUM 250 MG CAPSULE PO SCH (14:23)
[2024-06-23] MEDS: polyethylene glycoL 3350 17 GM PACKET PO SCH (14:23)
--- NOTE | 2024-06-23 15:23 | PROVIDER PROGRESS NOTE ---
Assessment/Plan Problem List (1) Abscess of liver: Assessment/Plan: Continued drainage - switched to active drainage with placement of a CHRISTIANA tube to provide suction (instead of passive flow). Continue Ceftriaxone. Ceftriaxone is an excellent choice as it is excreted in bile and its presence can cause sludging. As a result I have ordered that the drain be irrigated with 10-15 mL of sterile saline every 8 hours. The thick nature of the bile may be impeding drainage. WBC slightly higher today. CPT 96792 (2) Sepsis: Qualifiers: Sepsis type: sepsis due to unspecified organism Sepsis acute organ dysfunction status: without acute organ dysfunction Qualified Code(s): A41.9 - Sepsis, unspecified organism (3) Leukocytosis: Qualifiers: Leukocytosis type: unspecified Qualified Code(s): D72.829 - Elevated white blood cell count, unspecified (4) HTN (hypertension), benign: (5) Bipolar 1 disorder: Current Meds Current Meds: Current Medications Generic Name Dose Route Start Last Admin Trade Name Freq PRN Reason Stop Dose Admin Acetaminophen 650 mg 06/21/24 16:00 06/22/24 08:41 Acetaminophen 325 Mg Tablet PO 650 mg Q4HR PRN Administration Pain 1 to 4, or Fever Hydrocodone Bitart/Acetaminophen 1 tab 06/21/24 17:13 06/22/24 12:48 Hydrocod/Acetam 5/325 Mg Tablet PO 1 tab Q4HR PRN Administration Moderate Pain (Level 4-6) Bupropion HCl 150 mg 06/21/24 21:00 06/23/24 09:47 Bupropion Sr 150 Mg Tablet PO 150 mg BID RICARDO Administration Ceftriaxone Sodium 2 gm 06/21/24 15:00 06/23/24 10:22 Ceftriaxone 2 Gm Vial IVP 2 gm DAILY RICARDO Administration Docusate Sodium 250 - 500 mg 06/23/24 13:00 06/23/24 14:23 Docusate Sodium 250 Mg Capsule PO 250 mg DAILY RICARDO Administration Enoxaparin Sodium 40 mg 06/22/24 09:00 06/23/24 09:47 Enoxaparin 40 Mg/0.4 Ml Syringe SUBQ 40 mg DAILY RICARDO Administration Guaifenesin 10 ml 06/22/24 16:02 Guaifenesin/Dextromethorphan 10 Ml Udc PO Q6HR PRN Cough Hydromorphone HCl 1.5 mg 06/23/24 09:31 06/23/24 11:04 Hydromorphone 1 Mg/Ml Carpuject IVP 1.5 mg Q2HR PRN Administration Severe Pain (Level 7-10) Metronidazole 500 mg in 100 mls @ 100 mls/hr 06/21/24 15:00 06/23/24 15:13 Flagyl 500 Mg/100 Ml IV 100 mls/hr Q8H RICARDO Administration Lactated Ringer's 1,000 mls @ 75 mls/hr 06/23/24 10:00 06/23/24 11:03 Lr IV 75 mls/hr .[id number] RICARDO Administration Melatonin 3 mg 06/22/24 21:00 06/22/24 20:42 Melatonin 3 Mg Tablet PO 3 mg QPM RIACRDO Administration Multivitamins/Minerals 1 tab 06/23/24 10:00 06/23/24 11:21 Multivitamin W/Minerals Tablet PO 1 tab DAILYWM RICARDO Administration Olanzapine 5 mg 06/22/24 21:23 Olanzapine 10 Mg Vial IM 06/23/24 21:22 ONCE PRN Agitation Ondansetron HCl 4 mg 06/21/24 16:00 06/22/24 22:51 Ondansetron 4 Mg/2 Ml Vial IVP 4 mg Q6HR PRN Administration Nausea / Vomiting Ondansetron HCl 4 mg 06/21/24 16:00 Ondansetron Odt 4 Mg Tablet TL Q6HR PRN Nausea / Vomiting Polyethylene Glycol 17 gm 06/23/24 13:00 06/23/24 14:23 Polyethylene Glycol 3350 17 Gm Packet PO 17 gm DAILY RICARDO Administration Senna 8.6 - 17.2 mg 06/23/24 21:00 Senna 8.6 Mg Tablet PO DAILY RICARDO Sodium Chloride 10 ml 06/21/24 16:00 Sodium Chloride Flush 0.9% 10 Ml Syringe IVP PRN PRN NEEDED PER PROVIDER ORDERS Sodium Chloride 10 ml 06/21/24 17:00 06/23/24 09:47 Sodium Chloride Flush 0.9% 10 Ml Syringe IVP 10 ml 0100,0900,1700 RICARDO Administration Sterile Water 20 ml 06/21/24 15:00 06/23/24 09:47 Water For Injection,Sterile 10 Ml Vial MC 20 ml DAILY RICARDO Administration Sterile Water 2.1 ml 06/22/24 21:23 Water For Injection,Sterile 10 Ml Vial MC .ONCE PRN Agitation Lab Result 06/23/24 05:40 06/23/24 05:40 Subjective Subjective Patient Reports: Abdominal Pain (More so in the RUQ.) Objective Vital Signs: Vital Signs - 24 hr 06/22/24 15:33 06/22/24 15:51 06/22/24 16:00 Temperature 36.8 C Temperature Source Temporal Artery Scan Pulse Rate [Brachial] 94 Respiratory Rate 16 Blood Pressure [Left Brachial artery] 108/63 O2 Saturation 94 O2 Source Room air Sedation scale 0-Fully awake Pain Intensity 7 7 Pain Intensity [Right Abdomen] 8 06/22/24 17:47 06/22/24 20:00 06/22/24 20:45 Temperature Temperature Source Pulse Rate [Brachial] Respiratory Rate Blood Pressure [Left Brachial artery] O2 Saturation O2 Source Sedation scale Pain Intensity 5 8 Pain Intensity [Right Abdomen] 8 06/22/24 21:15 06/22/24 22:51 06/22/24 23:21 Temperature Temperature Source Pulse Rate [Brachial] Respiratory Rate Blood Pressure [Left Brachial artery] O2 Saturation O2 Source Sedation scale Pain Intensity 7 9 6 Pain Intensity [Right Abdomen] 06/23/24 00:00 06/23/24 00:08 06/23/24 03:12 Temperature 36.8 C Temperature Source Skin Pulse Rate [Brachial] 113 H Respiratory Rate 18 Blood Pressure [Left Brachial artery] 109/76 O2 Saturation 92 O2 Source Room air Sedation scale 3-Responsive to vigorous Pain Intensity 9 Pain Intensity [Right Abdomen] 9 06/23/24 05:45 06/23/24 06:15 06/23/24 08:27 Temperature 36.3 C L Temperature Source Temporal Artery Scan Pulse Rate [Brachial] 103 H Respiratory Rate 20 Blood Pressure [Left Brachial artery] 125/78 O2 Saturation 92 O2 Source Room air Sedation scale 0-Fully awake Pain Intensity 9 9 Pain Intensity [Right Abdomen] 06/23/24 10:45 06/23/24 11:04 06/23/24 11:04 Temperature Temperature Source Pulse Rate [Brachial] Respiratory Rate Blood Pressure [Left Brachial artery] O2 Saturation O2 Source Sedation scale Pain Intensity 10 Pain Intensity [Right Abdomen] 10 8 06/23/24 12:00 Temperature Temperature Source Pulse Rate [Brachial] Respiratory Rate Blood Pressure [Left Brachial artery] O2 Saturation O2 Source Sedation scale Pain Intensity 8 Pain Intensity [Right Abdomen] Oxygen O2 Source Room air I&O (Last 24 Hrs): Intake and Output Totals x24h 06/21/24 06/22/24 06/23/24 23:59 23:59 23:59 Intake Total 1700 / 1700 1000 / 1000 400 / 400 Output Total 515 / 515 875 / 875 750 / 750 Balance 1185 / 1185 125 / 125 -350 / -350 General: Alert, Oriented x3, Cooperative and No acute distress HEENT: Atraumatic Neuro: Alert and Oriented Times 3 Cardiovascular: Regular rate (Intermittently tachy HR 95-105.) Respiratory: Chest non-tender and No respiratory distress Abdomen: Other (Tender in RUQ with no tenderness in LLQ - slight tenderness in RLQ and LUQ. Positive BS.) Extremities: No tenderness/swelling (No tenderness - negative Homans.) Results Results: Laboratory Results WBC 23.5 x10^3/uL (4.8-10.8) H 06/23/24 05:40 RBC 3.10 10^6/uL (4.70-6.10) L 06/23/24 05:40 Hgb 9.8 g/dL (14.0-18.0) L 06/23/24 05:40 Hct 30.0 % (42.0-52.0) L 06/23/24 05:40 MCV 96.8 fL (80.0-94.0) H 06/23/24 05:40 MCH 31.6 pg (27.0-31.0) H 06/23/24 05:40 MCHC 32.7 g/dL (32.0-36.0) 06/23/24 05:40 RDW 13.5 % (12.0-15.0) 06/23/24 05:40 Plt Count 481 10^3/uL (130-450) H 06/23/24 05:40 MPV 10.4 fL (7.4-11.4) 06/23/24 05:40 Neut # (Auto) Not Reportable 06/21/24 10:37 Lymph # (Auto) Not Reportable 06/21/24 10:37 [place] # (Auto) Not Reportable 06/21/24 10:37 Eos # (Auto) Not Reportable 06/21/24 10:37 Baso # (Auto) Not Reportable 06/21/24 10:37 Absolute Nucleated RBC Not Reportable 06/21/24 10:37 Total Counted 100 06/21/24 10:37 Band Neuts % (Manual) 2 % (0-10) 06/21/24 10:37 Reactive Lymphs % (Man) 3 % 06/21/24 10:37 Abnorm Lymph % (Manual) 0 % 06/21/24 10:37 Nucleated RBC % Not Reportable 06/21/24 10:37 Neutrophils # (Manual) 18.4 10^3/uL (1.5-6.6) H 06/21/24 10:37 Lymphocytes # (Manual) 0.9 10^3/uL (1.5-3.5) L 06/21/24 10:37 Monocytes # (Manual) 2.4 10^3/uL (0.0-1.0) H 06/21/24 10:37 Eosinophils # (Manual) 0.0 10^3/uL (0-0.7) 06/21/24 10:37 Basophils # (Manual) 0.0 10^3/uL (0-0.1) 06/21/24 10:37 Differential Comment MANUAL DIFFERENTIAL 06/21/24 10:37 Platelet Estimate INCREASED (>450,000) (NORMAL) 06/21/24 10:37 RBC Morph Micro Appear 1+ ANISOCYTOSIS (NORMAL) 06/21/24 10:37 PT 20.4 secs (9.9-12.6) H 06/21/24 13:13 INR 1.8 (0.8-1.2) H 06/21/24 13:13 APTT 30.6 secs (24.9-33.3) 06/21/24 13:13 Sodium 131 mmol/L (135-145) L 06/23/24 05:40 Potassium 4.0 mmol/L (3.5-4.5) 06/23/24 05:40 Chloride 98 mmol/L (101-111) L 06/23/24 05:40 Carbon Dioxide 25 mmol/L (21-32) 06/23/24 05:40 Anion Gap 8.0 (6-13) 06/23/24 05:40 BUN 21 mg/dL (6-20) H 06/23/24 05:40 Creatinine 0.7 mg/dL (0.6-1.3) 06/23/24 05:40 Estimated GFR (MDRD) 112 (>89) 06/23/24 05:40 Glucose 117 mg/dL (74-104) H 06/23/24 05:40 Calcium 8.2 mg/dL (8.5-10.3) L 06/23/24 05:40 Magnesium 2.1 mg/dL (1.7-2.3) 06/23/24 05:40 Total Bilirubin 1.6 mg/dL (0.2-1.0) H 06/22/24 05:23 AST 42 IU/L (10-42) 06/22/24 05:23 ALT 63 IU/L (10-60) H 06/22/24 05:23 Alkaline Phosphatase 117 IU/L (42-121) 06/22/24 05:23 Total Protein 7.2 g/dL (6.4-8.9) 06/22/24 05:23 Albumin 3.0 g/dL (3.2-5.5) L 06/22/24 05:23 Globulin 4.2 g/dL (2.1-4.2) 06/22/24 05:23 Albumin/Globulin Ratio 0.7 (1.0-2.2) L 06/22/24 05:23 Lipase < 10 U/L (11-82) L 06/21/24 10:37 Urine Color YELLOW 06/21/24 16:05 Urine Clarity CLEAR (CLEAR) 06/21/24 16:05 Urine pH 5.5 PH (5.0-7.5) 06/21/24 16:05 Ur Specific [place] 1.010 (1.002-1.030) 06/21/24 16:05 Urine Protein 30 mg/dL (NEGATIVE) H 06/21/24 16:05 Urine Glucose (UA) NEGATIVE mg/dL (NEGATIVE) 06/21/24 16:05 Urine Ketones NEGATIVE mg/dL (NEGATIVE) 06/21/24 16:05 Urine Occult Blood NEGATIVE (NEGATIVE) 06/21/24 16:05 Urine Nitrite NEGATIVE (NEGATIVE) 06/21/24 16:05 Urine Bilirubin NEGATIVE (NEGATIVE) 06/21/24 16:05 Urine Urobilinogen 4 E.U./dL (NORMAL) H 06/21/24 16:05 Ur Leukocyte Esterase NEGATIVE (NEGATIVE) 06/21/24 16:05 Urine RBC 0-5 /HPF (0-5) 06/21/24 16:05 Urine WBC 0-3 /HPF (0-3) 06/21/24 16:05 Ur Squamous Epith Cells RARE Squamous (<= Few) 06/21/24 16:05 Urine Bacteria None Seen /HPF (None Seen) 06/21/24 16:05 Urine Mucus Few Strands 06/21/24 16:05 Ur Microscopic Review INDICATED 06/21/24 16:05 Urine Culture Comments NOT INDICATED 06/21/24 16:05 Ethyl Alcohol < 10.0 mg/dL 06/21/24 10:37 Procedures Procedures: Switched passive drain collection to CHRISTIANA drain. ABX Reporting Has patient been on IV antibiotics over the past 48 hours?: Yes Current Medications Current Medications Current Medications: Current Medications Generic Name Dose Route Start Last Admin Trade Name Freq PRN Reason Stop Dose Admin Acetaminophen 650 mg 06/21/24 16:00 06/22/24 08:41 Acetaminophen 325 Mg Tablet PO 650 mg Q4HR PRN Administration Pain 1 to 4, or Fever Hydrocodone Bitart/Acetaminophen 1 tab 06/21/24 17:13 06/22/24 12:48 Hydrocod/Acetam 5/325 Mg Tablet PO 1 tab Q4HR PRN Administration Moderate Pain (Level 4-6) Bupropion HCl 150 mg 06/21/24 21:00 06/23/24 09:47 Bupropion Sr 150 Mg Tablet PO 150 mg BID RICARDO Administration Ceftriaxone Sodium 2 gm 06/21/24 15:00 06/23/24 10:22 Ceftriaxone 2 Gm Vial IVP 2 gm DAILY RICARDO Administration Docusate Sodium 250 - 500 mg 06/23/24 13:00 06/23/24 14:23 Docusate Sodium 250 Mg Capsule PO 250 mg DAILY RICARDO Administration Enoxaparin Sodium 40 mg 06/22/24 09:00 06/23/24 09:47 Enoxaparin 40 Mg/0.4 Ml Syringe SUBQ 40 mg DAILY RICARDO Administration Guaifenesin 10 ml 06/22/24 16:02 Guaifenesin/Dextromethorphan 10 Ml Udc PO Q6HR PRN Cough Hydromorphone HCl 1.5 mg 06/23/24 09:31 06/23/24 11:04 Hydromorphone 1 Mg/Ml Carpuject IVP 1.5 mg Q2HR PRN Administration Severe Pain (Level 7-10) Metronidazole 500 mg in 100 mls @ 100 mls/hr 06/21/24 15:00 06/23/24 15:13 Flagyl 500 Mg/100 Ml IV 100 mls/hr Q8H RICARDO Administration Lactated Ringer's 1,000 mls @ 75 mls/hr 06/23/24 10:00 06/23/24 11:03 Lr IV 75 mls/hr .[id number] RICARDO Administration Melatonin 3 mg 06/22/24 21:00 06/22/24 20:42 Melatonin 3 Mg Tablet PO 3 mg QPM RICARDO Administration Multivitamins/Minerals 1 tab 06/23/24 10:00 06/23/24 11:21 Multivitamin W/Minerals Tablet PO 1 tab DAILYWM RICARDO Administration Olanzapine 5 mg 06/22/24 21:23 Olanzapine 10 Mg Vial IM 06/23/24 21:22 ONCE PRN Agitation Ondansetron HCl 4 mg 06/21/24 16:00 06/22/24 22:51 Ondansetron 4 Mg/2 Ml Vial IVP 4 mg Q6HR PRN Administration Nausea / Vomiting Ondansetron HCl 4 mg 06/21/24 16:00 Ondansetron Odt 4 Mg Tablet TL Q6HR PRN Nausea / Vomiting Polyethylene Glycol 17 gm 06/23/24 13:00 06/23/24 14:23 Polyethylene Glycol 3350 17 Gm Packet PO 17 gm DAILY RICARDO Administration Senna 8.6 - 17.2 mg 06/23/24 21:00 Senna 8.6 Mg Tablet PO DAILY RICARDO Sodium Chloride 10 ml 06/21/24 16:00 Sodium Chloride Flush 0.9% 10 Ml Syringe IVP PRN PRN NEEDED PER PROVIDER ORDERS Sodium Chloride 10 ml 06/21/24 17:00 06/23/24 09:47 Sodium Chloride Flush 0.9% 10 Ml Syringe IVP 10 ml 0100,0900,1700 RICARDO Administration Sterile Water 20 ml 06/21/24 15:00 06/23/24 09:47 Water For Injection,Sterile 10 Ml Vial MC 20 ml DAILY RICARDO Administration Sterile Water 2.1 ml 06/22/24 21:23 Water For Injection,Sterile 10 Ml Vial MC .ONCE PRN Agitation
[2024-06-23] MEDS: SODIUM CHLORIDE FLUSH 0.9% 10 ML SYRINGE IVP PRN (20:43)
[2024-06-24] MEDS: SENNA 8.6 MG TABLET PO SCH (00:15)
[2024-06-24 05:34] LABS: HCT - HEMATOCRIT 30.4 % (42.0-52.0); HGB - HEMOGLOBIN 9.9 g/dL (14.0-18.0); MEAN CORPUSCULAR HEMOGLOBIN 31.7 pg (27.0-31.0); MEAN CORPUSCULAR HGB CONC 32.6 g/dL (32.0-36.0); MEAN CORPUSCULAR VOLUME 97.4 fL (80.0-94.0); MEAN PLATELET VOLUME 10.3 fL (7.4-11.4); RED BLOOD COUNT 3.12 10^6/uL (4.70-6.10); RED CELL DISTRIBUTION WIDTH 13.9 % (12.0-15.0); WHITE BLOOD COUNT 20.2 x10^3/uL (4.8-10.8)
[2024-06-24 05:48] LABS: CALCIUM 8.4 mg/dL (8.5-10.3); CREATININE 0.7 mg/dL (0.6-1.3)
--- NOTE | 2024-06-24 12:43 | PROVIDER PROGRESS NOTE ---
Assessment/Plan Problem List (1) Abscess of liver: Assessment/Plan: Continue drainage from liver abscess. Although irrigation was ordered for the drain it was not properly started and this has been addressed. Repeat CT scan on Wednesday to check for progress. Leukocytosis still present. Continue IV antibiotics. Will continue to follow but unsure whether or not surgical intervention will be more effective than interventional radiology. Again ceftriaxone is an excellent choice as it is preferentially excreted in the bile. Out of curiosity I looked up the excretion of ceftriaxone and bile and biliary excretion counts for 30 to 70% of the excretion. Additionally the levels of ceftriaxone in the blood are 20-150 times the levels in blood. (2) Sepsis: Qualifiers: Sepsis type: sepsis due to unspecified organism Sepsis acute organ dysfunction status: without acute organ dysfunction Qualified Code(s): A41.9 - Sepsis, unspecified organism (3) Leukocytosis: Qualifiers: Leukocytosis type: unspecified Qualified Code(s): D72.829 - Elevated white blood cell count, unspecified (4) HTN (hypertension), benign: (5) Bipolar 1 disorder: Current Meds Current Meds: Current Medications Generic Name Dose Route Start Last Admin Trade Name Freq PRN Reason Stop Dose Admin Acetaminophen 650 mg 06/21/24 16:00 06/24/24 08:47 Acetaminophen 325 Mg Tablet PO 650 mg Q4HR PRN Administration Pain 1 to 4, or Fever Hydrocodone Bitart/Acetaminophen 1 tab 06/21/24 17:13 06/22/24 12:48 Hydrocod/Acetam 5/325 Mg Tablet PO 1 tab Q4HR PRN Administration Moderate Pain (Level 4-6) Bupropion HCl 150 mg 06/21/24 21:00 06/24/24 08:48 Bupropion Sr 150 Mg Tablet PO 150 mg BID RICARDO Administration Ceftriaxone Sodium 2 gm 06/21/24 15:00 06/24/24 08:48 Ceftriaxone 2 Gm Vial IVP 2 gm DAILY RICARDO Administration Docusate Sodium 250 - 500 mg 06/23/24 13:00 06/24/24 08:48 Docusate Sodium 250 Mg Capsule PO 250 mg DAILY RICARDO Administration Enoxaparin Sodium 40 mg 06/22/24 09:00 06/24/24 08:58 Enoxaparin 40 Mg/0.4 Ml Syringe SUBQ Not Given DAILY RICARDO Guaifenesin 10 ml 06/22/24 16:02 Guaifenesin/Dextromethorphan 10 Ml Udc PO Q6HR PRN Cough Hydromorphone HCl 1.5 mg 06/23/24 09:31 06/24/24 09:08 Hydromorphone 1 Mg/Ml Carpuject IVP 1.5 mg Q2HR PRN Administration Severe Pain (Level 7-10) Metronidazole 500 mg in 100 mls @ 100 mls/hr 06/21/24 15:00 06/24/24 07:38 Flagyl 500 Mg/100 Ml IV Infused Q8H RICARDO Infusion Lactated Ringer's 1,000 mls @ 75 mls/hr 06/23/24 10:00 06/24/24 00:15 Lr IV 75 mls/hr .[id number] RICARDO Administration Melatonin 3 mg 06/22/24 21:00 06/23/24 20:43 Melatonin 3 Mg Tablet PO Not Given QPM RICARDO Multivitamins/Minerals 1 tab 06/23/24 10:00 06/24/24 08:48 Multivitamin W/Minerals Tablet PO 1 tab DAILYWM RICARDO Administration Ondansetron HCl 4 mg 06/21/24 16:00 06/22/24 22:51 Ondansetron 4 Mg/2 Ml Vial IVP 4 mg Q6HR PRN Administration Nausea / Vomiting Ondansetron HCl 4 mg 06/21/24 16:00 Ondansetron Odt 4 Mg Tablet TL Q6HR PRN Nausea / Vomiting Polyethylene Glycol 17 gm 06/23/24 13:00 06/24/24 08:48 Polyethylene Glycol 3350 17 Gm Packet PO 17 gm DAILY RICARDO Administration Senna 8.6 - 17.2 mg 06/23/24 21:00 06/24/24 08:48 Senna 8.6 Mg Tablet PO 8.6 mg DAILY RICARDO Administration Sodium Chloride 10 ml 06/21/24 16:00 06/23/24 20:43 Sodium Chloride Flush 0.9% 10 Ml Syringe IVP 10 ml PRN PRN Administration NEEDED PER PROVIDER ORDERS Sodium Chloride 10 ml 06/21/24 17:00 06/24/24 08:49 Sodium Chloride Flush 0.9% 10 Ml Syringe IVP 10 ml 0100,0900,1700 RICARDO Administration Sterile Water 20 ml 06/21/24 15:00 06/24/24 08:49 Water For Injection,Sterile 10 Ml Vial MC 20 ml DAILY RICARDO Administration Sterile Water 2.1 ml 06/22/24 21:23 Water For Injection,Sterile 10 Ml Vial MC .ONCE PRN Agitation Lab Result 06/24/24 05:08 06/24/24 05:08 Additional Planning My Orders: My Active Orders 06/23/24 15:34 Miscellaenous Nursing Order [RC] QSHIFT Subjective Subjective Patient Reports: Abdominal Pain Objective Vital Signs: Vital Signs - 24 hr 06/23/24 15:49 06/23/24 16:00 06/23/24 16:18 Temperature 36.5 C Temperature Source Temporal Artery Scan Pulse Rate [Brachial] 119 H Respiratory Rate 18 Blood Pressure [Left Brachial artery] 129/90 O2 Saturation 94 O2 Source Room air Sedation scale 0-Fully awake Pain Intensity 9 8 Pain Intensity [Right Abdomen] 8 06/23/24 17:47 06/23/24 20:00 06/23/24 20:43 Temperature Temperature Source Pulse Rate [Brachial] Respiratory Rate Blood Pressure [Left Brachial artery] O2 Saturation O2 Source Sedation scale Pain Intensity 5 10 Pain Intensity [Right Abdomen] 7 06/23/24 23:46 06/24/24 00:00 06/24/24 00:06 Temperature 36.5 C Temperature Source Temporal Artery Scan Pulse Rate [Brachial] 110 H Respiratory Rate 18 Blood Pressure [Left Brachial artery] 141/80 H O2 Saturation 94 O2 Source Room air Sedation scale 0-Fully awake Pain Intensity 10 10 Pain Intensity [Right Abdomen] 10 06/24/24 00:58 06/24/24 04:00 06/24/24 04:16 Temperature Temperature Source Pulse Rate [Brachial] Respiratory Rate Blood Pressure [Left Brachial artery] O2 Saturation O2 Source Sedation scale Pain Intensity 0 10 Pain Intensity [Right Abdomen] 10 06/24/24 05:08 06/24/24 08:47 06/24/24 09:08 Temperature Temperature Source Pulse Rate [Brachial] Respiratory Rate Blood Pressure [Left Brachial artery] O2 Saturation O2 Source Sedation scale Pain Intensity 4 9 10 Pain Intensity [Right Abdomen] 06/24/24 09:15 06/24/24 11:15 06/24/24 11:15 Temperature 36.4 C L Temperature Source Temporal Artery Scan Pulse Rate [Brachial] 101 H Respiratory Rate 22 Blood Pressure [Left Brachial artery] 122/74 O2 Saturation 92 O2 Source Room air Sedation scale 0-Fully awake Pain Intensity 0 4 4 Pain Intensity [Right Abdomen] Oxygen O2 Source Room air I&O (Last 24 Hrs): Intake and Output Totals x24h 06/22/24 06/23/24 06/24/24 23:59 23:59 23:59 Intake Total 1000 / 1000 700 / 700 1190 / 1190 Output Total 875 / 875 1095 / 1095 335 / 335 Balance 125 / 125 -395 / -395 855 / 855 General: Alert, Oriented x3, Cooperative and No acute distress HEENT: Atraumatic, EOMI and Mucous membr. moist/pink Neck: Supple Cardiovascular: Regular rate Respiratory: Chest non-tender, No respiratory distress and Breath sounds nml Abdomen: Soft and Other (Tenderness throughout but more so in the right upper quadrant.) Extremities: No cyanosis Results Results: Laboratory Results WBC 20.2 x10^3/uL (4.8-10.8) H 06/24/24 05:08 RBC 3.12 10^6/uL (4.70-6.10) L 06/24/24 05:08 Hgb 9.9 g/dL (14.0-18.0) L 06/24/24 05:08 Hct 30.4 % (42.0-52.0) L 06/24/24 05:08 MCV 97.4 fL (80.0-94.0) H 06/24/24 05:08 MCH 31.7 pg (27.0-31.0) H 06/24/24 05:08 MCHC 32.6 g/dL (32.0-36.0) 06/24/24 05:08 RDW 13.9 % (12.0-15.0) 06/24/24 05:08 Plt Count 563 10^3/uL (130-450) H 06/24/24 05:08 MPV 10.3 fL (7.4-11.4) 06/24/24 05:08 Neut # (Auto) Not Reportable 06/21/24 10:37 Lymph # (Auto) Not Reportable 06/21/24 10:37 [place] # (Auto) Not Reportable 06/21/24 10:37 Eos # (Auto) Not Reportable 06/21/24 10:37 Baso # (Auto) Not Reportable 06/21/24 10:37 Absolute Nucleated RBC Not Reportable 06/21/24 10:37 Total Counted 100 06/21/24 10:37 Band Neuts % (Manual) 2 % (0-10) 06/21/24 10:37 Reactive Lymphs % (Man) 3 % 06/21/24 10:37 Abnorm Lymph % (Manual) 0 % 06/21/24 10:37 Nucleated RBC % Not Reportable 06/21/24 10:37 Neutrophils # (Manual) 18.4 10^3/uL (1.5-6.6) H 06/21/24 10:37 Lymphocytes # (Manual) 0.9 10^3/uL (1.5-3.5) L 06/21/24 10:37 Monocytes # (Manual) 2.4 10^3/uL (0.0-1.0) H 06/21/24 10:37 Eosinophils # (Manual) 0.0 10^3/uL (0-0.7) 06/21/24 10:37 Basophils # (Manual) 0.0 10^3/uL (0-0.1) 06/21/24 10:37 Differential Comment MANUAL DIFFERENTIAL 06/21/24 10:37 Platelet Estimate INCREASED (>450,000) (NORMAL) 06/21/24 10:37 RBC Morph Micro Appear 1+ ANISOCYTOSIS (NORMAL) 06/21/24 10:37 PT 20.4 secs (9.9-12.6) H 06/21/24 13:13 INR 1.8 (0.8-1.2) H 06/21/24 13:13 APTT 30.6 secs (24.9-33.3) 06/21/24 13:13 Sodium 133 mmol/L (135-145) L 06/24/24 05:08 Potassium 4.0 mmol/L (3.5-4.5) 06/24/24 05:08 Chloride 100 mmol/L (101-111) L 06/24/24 05:08 Carbon Dioxide 24 mmol/L (21-32) 06/24/24 05:08 Anion Gap 9.0 (6-13) 06/24/24 05:08 BUN 22 mg/dL (6-20) H 06/24/24 05:08 Creatinine 0.7 mg/dL (0.6-1.3) 06/24/24 05:08 Estimated GFR (MDRD) 112 (>89) 06/24/24 05:08 Glucose 120 mg/dL (74-104) H 06/24/24 05:08 Calcium 8.4 mg/dL (8.5-10.3) L 06/24/24 05:08 Magnesium 2.0 mg/dL (1.7-2.3) 06/24/24 05:08 Total Bilirubin 1.6 mg/dL (0.2-1.0) H 06/22/24 05:23 AST 42 IU/L (10-42) 06/22/24 05:23 ALT 63 IU/L (10-60) H 06/22/24 05:23 Alkaline Phosphatase 117 IU/L (42-121) 06/22/24 05:23 Total Protein 7.2 g/dL (6.4-8.9) 06/22/24 05:23 Albumin 3.0 g/dL (3.2-5.5) L 06/22/24 05:23 Globulin 4.2 g/dL (2.1-4.2) 06/22/24 05:23 Albumin/Globulin Ratio 0.7 (1.0-2.2) L 06/22/24 05:23 Lipase < 10 U/L (11-82) L 06/21/24 10:37 Urine Color YELLOW 06/21/24 16:05 Urine Clarity CLEAR (CLEAR) 06/21/24 16:05 Urine pH 5.5 PH (5.0-7.5) 06/21/24 16:05 Ur Specific [place] 1.010 (1.002-1.030) 06/21/24 16:05 Urine Protein 30 mg/dL (NEGATIVE) H 06/21/24 16:05 Urine Glucose (UA) NEGATIVE mg/dL (NEGATIVE) 06/21/24 16:05 Urine Ketones NEGATIVE mg/dL (NEGATIVE) 06/21/24 16:05 Urine Occult Blood NEGATIVE (NEGATIVE) 06/21/24 16:05 Urine Nitrite NEGATIVE (NEGATIVE) 06/21/24 16:05 Urine Bilirubin NEGATIVE (NEGATIVE) 06/21/24 16:05 Urine Urobilinogen 4 E.U./dL (NORMAL) H 06/21/24 16:05 Ur Leukocyte Esterase NEGATIVE (NEGATIVE) 06/21/24 16:05 Urine RBC 0-5 /HPF (0-5) 06/21/24 16:05 Urine WBC 0-3 /HPF (0-3) 06/21/24 16:05 Ur Squamous Epith Cells RARE Squamous (<= Few) 06/21/24 16:05 Urine Bacteria None Seen /HPF (None Seen) 06/21/24 16:05 Urine Mucus Few Strands 06/21/24 16:05 Ur Microscopic Review INDICATED 06/21/24 16:05 Urine Culture Comments NOT INDICATED 06/21/24 16:05 Ethyl Alcohol < 10.0 mg/dL 06/21/24 10:37 ABX Reporting Has patient been on IV antibiotics over the past 48 hours?: Yes Current Medications Current Medications Current Medications: Current Medications Generic Name Dose Route Start Last Admin Trade Name Freq PRN Reason Stop Dose Admin Acetaminophen 650 mg 06/21/24 16:00 06/24/24 08:47 Acetaminophen 325 Mg Tablet PO 650 mg Q4HR PRN Administration Pain 1 to 4, or Fever Hydrocodone Bitart/Acetaminophen 1 tab 06/21/24 17:13 06/22/24 12:48 Hydrocod/Acetam 5/325 Mg Tablet PO 1 tab Q4HR PRN Administration Moderate Pain (Level 4-6) Bupropion HCl 150 mg 06/21/24 21:00 06/24/24 08:48 Bupropion Sr 150 Mg Tablet PO 150 mg BID RICARDO Administration Ceftriaxone Sodium 2 gm 06/21/24 15:00 06/24/24 08:48 Ceftriaxone 2 Gm Vial IVP 2 gm DAILY RICARDO Administration Docusate Sodium 250 - 500 mg 06/23/24 13:00 06/24/24 08:48 Docusate Sodium 250 Mg Capsule PO 250 mg DAILY RICARDO Administration Enoxaparin Sodium 40 mg 06/22/24 09:00 06/24/24 08:58 Enoxaparin 40 Mg/0.4 Ml Syringe SUBQ Not Given DAILY RICARDO Guaifenesin 10 ml 06/22/24 16:02 Guaifenesin/Dextromethorphan 10 Ml Udc PO Q6HR PRN Cough Hydromorphone HCl 1.5 mg 06/23/24 09:31 06/24/24 09:08 Hydromorphone 1 Mg/Ml Carpuject IVP 1.5 mg Q2HR PRN Administration Severe Pain (Level 7-10) Metronidazole 500 mg in 100 mls @ 100 mls/hr 06/21/24 15:00 06/24/24 07:38 Flagyl 500 Mg/100 Ml IV Infused Q8H RICARDO Infusion Lactated Ringer's 1,000 mls @ 75 mls/hr 06/23/24 10:00 06/24/24 00:15 Lr IV 75 mls/hr .[id number] RICARDO Administration Melatonin 3 mg 06/22/24 21:00 06/23/24 20:43 Melatonin 3 Mg Tablet PO Not Given QPM RICARDO Multivitamins/Minerals 1 tab 06/23/24 10:00 06/24/24 08:48 Multivitamin W/Minerals Tablet PO 1 tab DAILYWM RICARDO Administration Ondansetron HCl 4 mg 06/21/24 16:00 06/22/24 22:51 Ondansetron 4 Mg/2 Ml Vial IVP 4 mg Q6HR PRN Administration Nausea / Vomiting Ondansetron HCl 4 mg 06/21/24 16:00 Ondansetron Odt 4 Mg Tablet TL Q6HR PRN Nausea / Vomiting Polyethylene Glycol 17 gm 06/23/24 13:00 06/24/24 08:48 Polyethylene Glycol 3350 17 Gm Packet PO 17 gm DAILY RICARDO Administration Senna 8.6 - 17.2 mg 06/23/24 21:00 06/24/24 08:48 Senna 8.6 Mg Tablet PO 8.6 mg DAILY RICARDO Administration Sodium Chloride 10 ml 06/21/24 16:00 06/23/24 20:43 Sodium Chloride Flush 0.9% 10 Ml Syringe IVP 10 ml PRN PRN Administration NEEDED PER PROVIDER ORDERS Sodium Chloride 10 ml 06/21/24 17:00 06/24/24 08:49 Sodium Chloride Flush 0.9% 10 Ml Syringe IVP 10 ml 0100,0900,1700 RICARDO Administration Sterile Water 20 ml 06/21/24 15:00 06/24/24 08:49 Water For Injection,Sterile 10 Ml Vial MC 20 ml DAILY RICARDO Administration Sterile Water 2.1 ml 06/22/24 21:23 Water For Injection,Sterile 10 Ml Vial MC .ONCE PRN Agitation
--- NOTE | 2024-06-24 12:59 | PROVIDER PROGRESS NOTE ---
Subjective Subjective Subjective: Patient still has some pain around his abdominal site, where the drain is. He has not had a bowel movement in a few days. He has a very poor appetite. Current Medications Current Medications Current Medications: Current Medications Generic Name Dose Route Start Last Admin Trade Name Freq PRN Reason Stop Dose Admin Acetaminophen 650 mg 06/21/24 16:00 06/24/24 08:47 Acetaminophen 325 Mg Tablet PO 650 mg Q4HR PRN Administration Pain 1 to 4, or Fever Hydrocodone Bitart/Acetaminophen 1 tab 06/21/24 17:13 06/22/24 12:48 Hydrocod/Acetam 5/325 Mg Tablet PO 1 tab Q4HR PRN Administration Moderate Pain (Level 4-6) Bupropion HCl 150 mg 06/21/24 21:00 06/24/24 08:48 Bupropion Sr 150 Mg Tablet PO 150 mg BID RICARDO Administration Ceftriaxone Sodium 2 gm 06/21/24 15:00 06/24/24 08:48 Ceftriaxone 2 Gm Vial IVP 2 gm DAILY RICARDO Administration Docusate Sodium 250 - 500 mg 06/23/24 13:00 06/24/24 08:48 Docusate Sodium 250 Mg Capsule PO 250 mg DAILY RICARDO Administration Enoxaparin Sodium 40 mg 06/22/24 09:00 06/24/24 08:58 Enoxaparin 40 Mg/0.4 Ml Syringe SUBQ Not Given DAILY RICARDO Guaifenesin 10 ml 06/22/24 16:02 Guaifenesin/Dextromethorphan 10 Ml Udc PO Q6HR PRN Cough Hydromorphone HCl 1.5 mg 06/23/24 09:31 06/24/24 09:08 Hydromorphone 1 Mg/Ml Carpuject IVP 1.5 mg Q2HR PRN Administration Severe Pain (Level 7-10) Metronidazole 500 mg in 100 mls @ 100 mls/hr 06/21/24 15:00 06/24/24 07:38 Flagyl 500 Mg/100 Ml IV Infused Q8H RICARDO Infusion Lactated Ringer's 1,000 mls @ 75 mls/hr 06/23/24 10:00 06/24/24 00:15 Lr IV 75 mls/hr .[id number] RICARDO Administration Melatonin 3 mg 06/22/24 21:00 06/23/24 20:43 Melatonin 3 Mg Tablet PO Not Given QPM RICARDO Multivitamins/Minerals 1 tab 06/23/24 10:00 06/24/24 08:48 Multivitamin W/Minerals Tablet PO 1 tab DAILYWM RICARDO Administration Ondansetron HCl 4 mg 06/21/24 16:00 06/22/24 22:51 Ondansetron 4 Mg/2 Ml Vial IVP 4 mg Q6HR PRN Administration Nausea / Vomiting Ondansetron HCl 4 mg 06/21/24 16:00 Ondansetron Odt 4 Mg Tablet TL Q6HR PRN Nausea / Vomiting Polyethylene Glycol 17 gm 06/23/24 13:00 06/24/24 08:48 Polyethylene Glycol 3350 17 Gm Packet PO 17 gm DAILY RICARDO Administration Senna 8.6 - 17.2 mg 06/23/24 21:00 06/24/24 08:48 Senna 8.6 Mg Tablet PO 8.6 mg DAILY RICARDO Administration Sodium Chloride 10 ml 06/21/24 16:00 06/23/24 20:43 Sodium Chloride Flush 0.9% 10 Ml Syringe IVP 10 ml PRN PRN Administration NEEDED PER PROVIDER ORDERS Sodium Chloride 10 ml 06/21/24 17:00 06/24/24 08:49 Sodium Chloride Flush 0.9% 10 Ml Syringe IVP 10 ml 0100,0900,1700 RICARDO Administration Sterile Water 20 ml 06/21/24 15:00 06/24/24 08:49 Water For Injection,Sterile 10 Ml Vial MC 20 ml DAILY RICARDO Administration Sterile Water 2.1 ml 06/22/24 21:23 Water For Injection,Sterile 10 Ml Vial MC .ONCE PRN Agitation Objective Vital Signs/Intake & Output Reviewed Vital Signs: Yes Vital Signs: Vital Signs x48h Temp Pulse Resp BP Pulse Ox 06/24/24 09:15 97.5 F L 101 H 22 122/74 92 Intake & Output: Intake & Output 06/21/24 06/22/24 06/23/24 06/24/24 23:59 23:59 23:59 23:59 Intake Total 1700 / 1700 1000 / 1000 700 / 700 1190 / 1190 Output Total 515 / 515 875 / 875 1095 / 1095 335 / 335 Balance 1185 / 1185 125 / 125 -395 / -395 855 / 855 Weight (kg) 90 kg Objective General Appearance: positive No acute distress, Alert and Anxious Eyes Bilateral: positive Normal inspection, PERRL and EOMI ENT: positive ENT inspection nml, Pharynx nml and No signs of dehydration Neck: positive Nml inspection, Thyroid nml and No JVD Respiratory: positive Chest non-tender, No respiratory distress and Breath sounds nml; negative Wheezes, Rales or Rhonchi Cardiovascular: positive Regular rate & rhythm, No murmur and No gallop Abdomen: positive No organomegaly, Nml bowel sounds, No distention and Tenderness (RLQ, RUQ tenderness to palpation; drain in place) Back: positive Nml inspection; negative CVA tenderness (R) or CVA tenderness (L) Skin: positive Color nml, No rash and Dry Extremities: positive Non-tender, Full ROM, Nml appearance and No pedal edema Neurologic/Psychiatric: positive Oriented x3, Motor nml and Mood/affect nml Lab Results 06/24/24 05:08 06/24/24 05:08 Other Labs: Lab Results x24hrs 06/24/24 Range/Units 05:08 WBC 20.2 H (4.8-10.8) x10^3/uL RBC 3.12 L (4.70-6.10) 10^6/uL Hgb 9.9 L (14.0-18.0) g/dL Hct 30.4 L (42.0-52.0) % MCV 97.4 H (80.0-94.0) fL MCH 31.7 H (27.0-31.0) pg MCHC 32.6 (32.0-36.0) g/dL RDW 13.9 (12.0-15.0) % Plt Count 563 H (130-450) 10^3/uL MPV 10.3 (7.4-11.4) fL Sodium 133 L (135-145) mmol/L Potassium 4.0 (3.5-4.5) mmol/L Chloride 100 L (101-111) mmol/L Carbon Dioxide 24 (21-32) mmol/L Anion Gap 9.0 (6-13) BUN 22 H (6-20) mg/dL Creatinine 0.7 (0.6-1.3) mg/dL Estimated GFR (MDRD) 112 (>89) Glucose 120 H (74-104) mg/dL Calcium 8.4 L (8.5-10.3) mg/dL Magnesium 2.0 (1.7-2.3) mg/dL Diagnostic Imaging Diagnostic Imaging Results: positive Final report reviewed Assessment/Plan Problem List (1) Abscess of liver: Impression: Patient with 3 months of decreased appetite, weight loss, abdominal pain, fevers, chills. CT abdomen/pelvis shows extensive right lobe liver abscess. Plan to repeat CT on Wednesday. IR consulted: Drain placed. General surgery consulted for management. Ongoing drainage noted. Will Continue Rocephin and flagyl. Cultures sent from abscess drainage - preliminary results show gram positive cocci. Anaerobic cultures remain pending. Blood cultures ordered no growth to date. Patient continues have significant pain at surgical site of drain placement. I have increased his Dilaudid dosage to 1.5 mg every 2 hours as needed to see if it helps provide him some relief. CT abdomen also shows diffuse thickening of the rectosigmoid region. Patient states he had a colonoscopy 1 year ago, but is unclear where this was done. Will request records when able. He has given me the phone number Patient will need repeat colonoscopy as well when clinically stable. May require prep and completion here. (2) Sepsis: Impression: Patient with tachycardia, tachypnea, fevers, as well as leukocytosis. All of the above continue to improve. Source being liver abscess as stated above. Treatment as above, including Rocephin and Flagyl. Qualifiers: Sepsis acute organ dysfunction status: without acute organ dysfunction Sepsis type: sepsis due to unspecified organism Qualified Code(s): A41.9 - Sepsis, unspecified organism (3) Leukocytosis: Impression: Elevated in setting of above. Continue to trend. Qualifiers: Leukocytosis type: unspecified Qualified Code(s): D72.829 - Elevated white blood cell count, unspecified (4) HTN (hypertension), benign: Impression: Was prescribed lisinopril in the outpatient setting, but has not been taking it. Will continue to monitor blood pressure here. (5) Bipolar 1 disorder: Impression: Multiple behavioral health notes which demonstrate noncompliance. Was prescribed Seroquel in the past, but is not currently taking it. Continue Wellbutrin at this time. Not actively psychotic, no active suicidal or homicidal ideation noted.
[2024-06-24] MEDS: PANTOPRAZOLE 40 MG TABLET PO SCH (20:46)
[2024-06-25 04:37] LABS: HCT - HEMATOCRIT 26.4 % (42.0-52.0); HGB - HEMOGLOBIN 8.8 g/dL (14.0-18.0); MEAN CORPUSCULAR HEMOGLOBIN 32.2 pg (27.0-31.0); MEAN CORPUSCULAR HGB CONC 33.3 g/dL (32.0-36.0); MEAN CORPUSCULAR VOLUME 96.7 fL (80.0-94.0); MEAN PLATELET VOLUME 9.8 fL (7.4-11.4); RED BLOOD COUNT 2.73 10^6/uL (4.70-6.10); RED CELL DISTRIBUTION WIDTH 14.2 % (12.0-15.0); WHITE BLOOD COUNT 17.1 x10^3/uL (4.8-10.8)
[2024-06-25 04:55] LABS: CALCIUM 8.2 mg/dL (8.5-10.3); CREATININE 0.6 mg/dL (0.6-1.3); MAGNESIUM 1.8 mg/dL (1.7-2.3)
--- NOTE | 2024-06-25 09:14 | PROVIDER PROGRESS NOTE ---
Subjective Subjective Subjective: Mr. Sorto expresses frustration at not being able to have a bowel movement. He is agreeable to a enema or suppository if needed. His states his pain is well-controlled today. Current Medications Current Medications Current Medications: Current Medications Generic Name Dose Route Start Last Admin Trade Name Freq PRN Reason Stop Dose Admin Acetaminophen 650 mg 06/21/24 16:00 06/24/24 08:47 Acetaminophen 325 Mg Tablet PO 650 mg Q4HR PRN Administration Pain 1 to 4, or Fever Hydrocodone Bitart/Acetaminophen 1 tab 06/21/24 17:13 06/25/24 00:54 Hydrocod/Acetam 5/325 Mg Tablet PO 1 tab Q4HR PRN Administration Moderate Pain (Level 4-6) Bupropion HCl 150 mg 06/21/24 21:00 06/24/24 20:46 Bupropion Sr 150 Mg Tablet PO 150 mg BID RICARDO Administration Ceftriaxone Sodium 2 gm 06/21/24 15:00 06/24/24 08:48 Ceftriaxone 2 Gm Vial IVP 2 gm DAILY RICARDO Administration Docusate Sodium 250 - 500 mg 06/23/24 13:00 06/24/24 08:48 Docusate Sodium 250 Mg Capsule PO 250 mg DAILY RICARDO Administration Enoxaparin Sodium 40 mg 06/22/24 09:00 06/24/24 08:58 Enoxaparin 40 Mg/0.4 Ml Syringe SUBQ Not Given DAILY RICARDO Glycerin 1 supp 06/25/24 10:00 Glycerin Adult Supp [place] ONCE RICARDO Guaifenesin 10 ml 06/22/24 16:02 Guaifenesin/Dextromethorphan 10 Ml Udc PO Q6HR PRN Cough Hydromorphone HCl 1.5 mg 06/23/24 09:31 06/24/24 22:36 Hydromorphone 1 Mg/Ml Carpuject IVP 1.5 mg Q2HR PRN Administration Severe Pain (Level 7-10) Metronidazole 500 mg in 100 mls @ 100 mls/hr 06/21/24 15:00 06/25/24 00:49 Flagyl 500 Mg/100 Ml IV Infused Q8H RICARDO Infusion Lactated Ringer's 1,000 mls @ 75 mls/hr 06/23/24 10:00 06/25/24 02:12 Lr IV 75 mls/hr .[id number] RICARDO Administration Lactulose 10 gm 06/25/24 10:00 Lactulose 10 Gm /15 Ml Udc PO 06/25/24 16:01 Q2HR RICARDO Melatonin 3 mg 06/22/24 21:00 06/24/24 20:46 Melatonin 3 Mg Tablet PO 3 mg QPM RICARDO Administration Multivitamins/Minerals 1 tab 06/23/24 10:00 06/24/24 08:48 Multivitamin W/Minerals Tablet PO 1 tab DAILYWM RICARDO Administration Ondansetron HCl 4 mg 06/21/24 16:00 06/22/24 22:51 Ondansetron 4 Mg/2 Ml Vial IVP 4 mg Q6HR PRN Administration Nausea / Vomiting Ondansetron HCl 4 mg 06/21/24 16:00 Ondansetron Odt 4 Mg Tablet TL Q6HR PRN Nausea / Vomiting Pantoprazole Sodium 40 mg 06/24/24 20:10 06/24/24 20:46 Pantoprazole 40 Mg Tablet PO 40 mg QDAC RICARDO Administration Polyethylene Glycol 17 gm 06/23/24 13:00 06/24/24 08:48 Polyethylene Glycol 3350 17 Gm Packet PO 17 gm DAILY RICARDO Administration Senna 8.6 - 17.2 mg 06/23/24 21:00 06/24/24 08:48 Senna 8.6 Mg Tablet PO 8.6 mg DAILY RICARDO Administration Sodium Chloride 10 ml 06/21/24 16:00 06/23/24 20:43 Sodium Chloride Flush 0.9% 10 Ml Syringe IVP 10 ml PRN PRN Administration NEEDED PER PROVIDER ORDERS Sodium Chloride 10 ml 06/21/24 17:00 06/25/24 00:56 Sodium Chloride Flush 0.9% 10 Ml Syringe IVP Not Given 0100,0900,1700 RICARDO Sterile Water 20 ml 06/21/24 15:00 06/24/24 08:49 Water For Injection,Sterile 10 Ml Vial MC 20 ml DAILY RICARDO Administration Sterile Water 2.1 ml 06/22/24 21:23 Water For Injection,Sterile 10 Ml Vial MC .ONCE PRN Agitation Objective Vital Signs/Intake & Output Reviewed Vital Signs: Yes Vital Signs: Vital Signs x48h Temp Pulse Resp BP Pulse Ox 06/24/24 09:15 97.5 F L 101 H 22 122/74 92 Intake & Output: Intake & Output 0406/23/24 06/24/24 06/25/24 23:59 23:59 23:59 23:59 Intake Total 1000 / 1000 700 / 700 2704 / 2704 1313 / 1313 Output Total 875 / 875 1095 / 1095 915 / 915 445 / 445 Balance 125 / 125 -395 / -395 1789 / 1789 868 / 868 Objective General Appearance: positive No acute distress, Alert and Anxious Eyes Bilateral: positive Normal inspection, PERRL and EOMI ENT: positive ENT inspection nml, Pharynx nml and No signs of dehydration Neck: positive Nml inspection, Thyroid nml and No JVD Respiratory: positive Chest non-tender, No respiratory distress and Breath sounds nml; negative Wheezes, Rales or Rhonchi Cardiovascular: positive Regular rate & rhythm, No murmur and No gallop Abdomen: positive No organomegaly, Nml bowel sounds, No distention and Tenderness (RLQ, RUQ tenderness to palpation; drain in place) Back: positive Nml inspection; negative CVA tenderness (R) or CVA tenderness (L) Skin: positive Color nml, No rash and Dry Extremities: positive Non-tender, Full ROM, Nml appearance and No pedal edema Neurologic/Psychiatric: positive Oriented x3, Motor nml and Mood/affect nml Lab Results 06/25/24 04:31 06/25/24 04:31 Other Labs: Lab Results x24hrs 06/25/24 06/24/24 Range/Units 04:31 11:30 WBC 17.1 H (4.8-10.8) x10^3/uL RBC 2.73 L (4.70-6.10) 10^6/uL Hgb 8.8 L (14.0-18.0) g/dL Hct 26.4 L (42.0-52.0) % MCV 96.7 H (80.0-94.0) fL MCH 32.2 H (27.0-31.0) pg MCHC 33.3 (32.0-36.0) g/dL RDW 14.2 (12.0-15.0) % Plt Count 542 H (130-450) 10^3/uL MPV 9.8 (7.4-11.4) fL Sodium 136 (135-145) mmol/L Potassium 4.0 (3.5-4.5) mmol/L Chloride 103 (101-111) mmol/L Carbon Dioxide 28 (21-32) mmol/L Anion Gap 5.0 L (6-13) BUN 18 (6-20) mg/dL Creatinine 0.6 (0.6-1.3) mg/dL Estimated GFR (MDRD) 134 (>89) Glucose 118 H (74-104) mg/dL Calcium 8.2 L (8.5-10.3) mg/dL Magnesium 1.8 (1.7-2.3) mg/dL Nasal Screen MRSA (PCR) NEGATIVE (NEGATIVE) Diagnostic Imaging Diagnostic Imaging Results: positive Final report reviewed Assessment/Plan Problem List (1) Abscess of liver: Impression: Patient with 3 months of decreased appetite, weight loss, abdominal pain, fevers, chills. CT abdomen/pelvis shows extensive right lobe liver abscess. Plan to repeat CT on Wednesday. IR consulted: Drain placed. General surgery consulted for management. Ongoing drainage noted. Will Continue Rocephin and flagyl. Cultures sent from abscess drainage - broth results show coagulase negative Staphylococcus aureus, concern for contaminant as the original plates did not grow this bug. Anaerobic cultures remain pending. Will wait on final speciation before de-escalating. Blood cultures ordered no growth to date. Patient will require 4 weeks of antibiotics, including 2 weeks of IV antibiotics. PICC line to be placed. Patient would not like to go to a facility, so will work with Social Work and Case Management about infusion set-up at home. Patient continues have significant pain at surgical site of drain placement. Continue IV Dilaudid; will try decreasing dose to 1 mg every 2 hours. Continue oral [place] as needed for moderated pain. CT abdomen also shows diffuse thickening of the rectosigmoid region. Patient states he had a colonoscopy 1 year ago, but is unclear where this was done. Patient will need repeat colonoscopy as well when clinically stable. May require prep and completion here. (2) Sepsis: Impression: Patient with tachycardia, tachypnea, fevers, as well as leukocytosis. All of the above continue to improve. Source being liver abscess as stated above. Treatment as above, including Rocephin and Flagyl. Qualifiers: Sepsis acute organ dysfunction status: without acute organ dysfunction Sepsis type: sepsis due to unspecified organism Qualified Code(s): A41.9 - Sepsis, unspecified organism (3) Leukocytosis: Impression: Elevated in setting of above. Continue to trend. Qualifiers: Leukocytosis type: unspecified Qualified Code(s): D72.829 - Elevated white blood cell count, unspecified (4) HTN (hypertension), benign: Impression: Was prescribed lisinopril in the outpatient setting, but has not been taking it. Will continue to monitor blood pressure here. (5) Bipolar 1 disorder: Impression: Multiple behavioral health notes which demonstrate noncompliance. Was prescribed Seroquel in the past, but is not currently taking it. Continue Wellbutrin at this time. Not actively psychotic, no active suicidal or homicidal ideation noted.
[2024-06-25] MEDS: LACTULOSE 10 GM /15 ML UDC PO SCH (09:46)
[2024-06-25] MEDS ORDERED: GLYCERIN ADULT SUPP PR ONE (10:00)
--- NOTE | 2024-06-25 12:50 | PROVIDER PROGRESS NOTE ---
Assessment/Plan Problem List (1) Abscess of liver: Assessment/Plan: Preliminary result comes back as a coag negative Staphylococcus. The actual identification of the bacteria is still pending. I had a discussion with Dr. Wolfe and this result is from the broth and not the actual initial culture. As such there is a debate whether or not this is real. We are still awaiting anaerobic cultures. At any rate the treatment is a 4-week long course of antibiotics and the patient's mental status and social conditions have me concerned that I do not believe that he would complete a 4-week course of antibiotics if they were prescribed. I have personally reviewed the films and from a surgical standpoint this is an extremely large abscess. It is mildly unclear to me as to what our role is here other than if we were to surgically drain this abscess. I will wait to see what the repeat CT scan shows tomorrow with an eye towards either a resolving abscess, the same abscess, or a larger abscess. If it is larger or the same it would be clear to me that we would need a better drainage. If it is smaller then I am in agreement with "staying the course." (2) Sepsis: Qualifiers: Sepsis acute organ dysfunction status: without acute organ dysfunction Sepsis type: sepsis due to unspecified organism Qualified Code(s): A41.9 - Sepsis, unspecified organism (3) Leukocytosis: Qualifiers: Leukocytosis type: unspecified Qualified Code(s): D72.829 - Elevated white blood cell count, unspecified (4) HTN (hypertension), benign: (5) Bipolar 1 disorder: Current Meds Current Meds: Current Medications Generic Name Dose Route Start Last Admin Trade Name Natividad PRN Reason Stop Dose Admin Acetaminophen 650 mg 06/21/24 16:00 06/24/24 08:47 Acetaminophen 325 Mg Tablet PO 650 mg Q4HR PRN Administration Pain 1 to 4, or Fever Hydrocodone Bitart/Acetaminophen 1 tab 06/21/24 17:13 06/25/24 09:44 Hydrocod/Acetam 5/325 Mg Tablet PO 1 tab Q4HR PRN Administration Moderate Pain (Level 4-6) Bupropion HCl 150 mg 06/21/24 21:00 06/25/24 09:44 Bupropion Sr 150 Mg Tablet PO 150 mg BID RICARDO Administration Ceftriaxone Sodium 2 gm 06/21/24 15:00 06/25/24 11:10 Ceftriaxone 2 Gm Vial IVP Not Given DAILY RICARDO Docusate Sodium 250 - 500 mg 06/23/24 13:00 06/25/24 09:45 Docusate Sodium 250 Mg Capsule PO 500 mg DAILY RICARDO Administration Enoxaparin Sodium 40 mg 06/22/24 09:00 06/25/24 09:45 Enoxaparin 40 Mg/0.4 Ml Syringe SUBQ 40 mg DAILY RICARDO Administration Guaifenesin 10 ml 06/22/24 16:02 Guaifenesin/Dextromethorphan 10 Ml Udc PO Q6HR PRN Cough Hydromorphone HCl 1 mg 06/25/24 12:26 Hydromorphone 1 Mg/Ml Carpuject IVP Q2HR PRN Severe Pain (Level 7-10) Metronidazole 500 mg in 100 mls @ 100 mls/hr 06/21/24 15:00 06/25/24 09:32 Flagyl 500 Mg/100 Ml IV Not Given Q8H RIACRDO Lactated Ringer's 1,000 mls @ 75 mls/hr 06/23/24 10:00 06/25/24 02:12 Lr IV 75 mls/hr .[id number] RICARDO Administration Lactulose 10 gm 06/25/24 10:00 06/25/24 09:46 Lactulose 10 Gm /15 Ml Udc PO 06/25/24 16:01 10 gm Q2HR RICARDO Administration Melatonin 3 mg 06/22/24 21:00 06/24/24 20:46 Melatonin 3 Mg Tablet PO 3 mg QPM RICARDO Administration Multivitamins/Minerals 1 tab 06/23/24 10:00 06/25/24 09:44 Multivitamin W/Minerals Tablet PO 1 tab DAILYWM RICARDO Administration Ondansetron HCl 4 mg 06/21/24 16:00 06/22/24 22:51 Ondansetron 4 Mg/2 Ml Vial IVP 4 mg Q6HR PRN Administration Nausea / Vomiting Ondansetron HCl 4 mg 06/21/24 16:00 Ondansetron Odt 4 Mg Tablet TL Q6HR PRN Nausea / Vomiting Pantoprazole Sodium 40 mg 06/24/24 20:10 06/25/24 09:44 Pantoprazole 40 Mg Tablet PO 40 mg QDAC RICARDO Administration Polyethylene Glycol 17 gm 06/23/24 13:00 06/25/24 09:45 Polyethylene Glycol 3350 17 Gm Packet PO 17 gm DAILY RICARDO Administration Senna 8.6 - 17.2 mg 06/23/24 21:00 06/25/24 09:45 Senna 8.6 Mg Tablet PO 17.2 mg DAILY RICARDO Administration Sodium Chloride 10 ml 06/21/24 16:00 06/23/24 20:43 Sodium Chloride Flush 0.9% 10 Ml Syringe IVP 10 ml PRN PRN Administration NEEDED PER PROVIDER ORDERS Sodium Chloride 10 ml 06/21/24 17:00 06/25/24 09:46 Sodium Chloride Flush 0.9% 10 Ml Syringe IVP 10 ml 0100,0900,1700 RICARDO Administration Sterile Water 20 ml 06/21/24 15:00 06/25/24 11:10 Water For Injection,Sterile 10 Ml Vial MC Not Given DAILY RICARDO Sterile Water 2.1 ml 06/22/24 21:23 Water For Injection,Sterile 10 Ml Vial MC .ONCE PRN Agitation Lab Result 06/25/24 04:31 06/25/24 04:31 Subjective Subjective Patient Reports: Abdominal Pain (Still in the right upper quadrant.) Objective Vital Signs: Vital Signs - 24 hr 06/24/24 14:58 06/24/24 15:30 06/24/24 16:08 Temperature 36.8 C Temperature Source Temporal Artery Scan Pulse Rate [Brachial] 104 H Respiratory Rate 20 Blood Pressure [Right Brachial artery] 140/82 H O2 Saturation 94 O2 Source Room air Sedation scale 0-Fully awake Pain Intensity 9 4 7 Pain Intensity [Right Abdomen] 06/24/24 19:39 06/24/24 19:39 06/24/24 20:00 Temperature Temperature Source Pulse Rate [Brachial] Respiratory Rate Blood Pressure [Right Brachial artery] O2 Saturation O2 Source Sedation scale Pain Intensity 10 10 Pain Intensity [Right Abdomen] 5 06/24/24 20:45 06/24/24 20:45 06/24/24 22:36 Temperature Temperature Source Pulse Rate [Brachial] Respiratory Rate Blood Pressure [Right Brachial artery] O2 Saturation O2 Source Sedation scale Pain Intensity 5 5 8 Pain Intensity [Right Abdomen] 06/24/24 23:41 06/25/24 00:49 06/25/24 00:54 Temperature 36.6 C Temperature Source Temporal Artery Scan Pulse Rate [Brachial] 98 Respiratory Rate 20 Blood Pressure [Right Brachial artery] 128/87 O2 Saturation 96 O2 Source Room air Sedation scale 0-Fully awake Pain Intensity 0 8 8 Pain Intensity [Right Abdomen] 06/25/24 09:40 06/25/24 09:44 06/25/24 11:10 Temperature 36.8 C Temperature Source Temporal Artery Scan Pulse Rate [Brachial] 110 H Respiratory Rate 20 Blood Pressure [Right Brachial artery] 168/99 H O2 Saturation 93 O2 Source Room air Sedation scale 0-Fully awake Pain Intensity 6 4 Pain Intensity [Right Abdomen] Oxygen O2 Source Room air I&O (Last 24 Hrs): Intake and Output Totals x24h 06/23/24 06/24/24 06/25/24 23:59 23:59 23:59 Intake Total 700 / 700 2704 / 2704 1313 / 1313 Output Total 1095 / 1095 915 / 915 445 / 445 Balance -395 / -395 1789 / 1789 868 / 868 Comments/Notes: General: 68-year old male, appears older than stated age, well developed, well nourished HEENT: Normocephalic, atraumatic, extraocular movement intact, mucous membranes pink and moist, sclera anicteric and not injected Neck: Supple no bruit Cardiac: Regular rate and rhythm without rub, gallop, or murmur Chest: Clear to auscultation bilaterally Abdomen: Soft, much more tender at drain site Genitourinary: Deferred Rectal: Deferred Extremities: No gross neurovascular problem, no clubbing, cyanosis or edema Gait: Not evaluated Psychiatric: Alert and oriented to person place and time, asks and answers questions appropriately, mood and affect appropriate but tends to perseverate Results Results: Laboratory Results WBC 17.1 x10^3/uL (4.8-10.8) H 06/25/24 04:31 RBC 2.73 10^6/uL (4.70-6.10) L 06/25/24 04:31 Hgb 8.8 g/dL (14.0-18.0) L 06/25/24 04:31 Hct 26.4 % (42.0-52.0) L 06/25/24 04:31 MCV 96.7 fL (80.0-94.0) H 06/25/24 04:31 MCH 32.2 pg (27.0-31.0) H 06/25/24 04: MCHC 33.3 g/dL (32.0-36.0) 06/25/24 04: RDW 14.2 % (12.0-15.0) 06/25/24 04: Plt Count 542 10^3/uL (130-450) H 06/25/24 04:31 MPV 9.8 fL (7.4-11.4) 06/25/24 04:31 Neut # (Auto) Not Reportable 06/21/24 10:37 Lymph # (Auto) Not Reportable 06/21/24 10:37 [place] # (Auto) Not Reportable 06/21/24 10:37 Eos # (Auto) Not Reportable 06/21/24 10:37 Baso # (Auto) Not Reportable 06/21/24 10:37 Absolute Nucleated RBC Not Reportable 06/21/24 10:37 Total Counted 100 06/21/24 10:37 Band Neuts % (Manual) 2 % (0-10) 06/21/24 10:37 Reactive Lymphs % (Man) 3 % 06/21/24 10:37 Abnorm Lymph % (Manual) 0 % 06/21/24 10:37 Nucleated RBC % Not Reportable 06/21/24 10:37 Neutrophils # (Manual) 18.4 10^3/uL (1.5-6.6) H 06/21/24 10:37 Lymphocytes # (Manual) 0.9 10^3/uL (1.5-3.5) L 06/21/24 10:37 Monocytes # (Manual) 2.4 10^3/uL (0.0-1.0) H 06/21/24 10:37 Eosinophils # (Manual) 0.0 10^3/uL (0-0.7) 06/21/24 10:37 Basophils # (Manual) 0.0 10^3/uL (0-0.1) 06/21/24 10:37 Differential Comment MANUAL DIFFERENTIAL 06/21/24 10:37 Platelet Estimate INCREASED (>450,000) (NORMAL) 06/21/24 10:37 RBC Morph Micro Appear 1+ ANISOCYTOSIS (NORMAL) 06/21/24 10:37 PT 20.4 secs (9.9-12.6) H 06/21/24 13:13 INR 1.8 (0.8-1.2) H 06/21/24 13:13 APTT 30.6 secs (24.9-33.3) 06/21/24 13:13 Sodium 136 mmol/L (135-145) 06/25/24 04:31 Potassium 4.0 mmol/L (3.5-4.5) 06/25/24 04:31 Chloride 103 mmol/L (101-111) 06/25/24 04:31 Carbon Dioxide 28 mmol/L (21-32) 06/25/24 04:31 Anion Gap 5.0 (6-13) L 06/25/24 04:31 BUN 18 mg/dL (6-20) 06/25/24 04:31 Creatinine 0.6 mg/dL (0.6-1.3) 06/25/24 04:31 Estimated GFR (MDRD) 134 (>89) 06/25/24 04:31 Glucose 118 mg/dL (74-104) H 06/25/24 04:31 Calcium 8.2 mg/dL (8.5-10.3) L 06/25/24 04:31 Magnesium 1.8 mg/dL (1.7-2.3) 06/25/24 04:31 Total Bilirubin 1.6 mg/dL (0.2-1.0) H 06/22/24 05:23 AST 42 IU/L (10-42) 06/22/24 05:23 ALT 63 IU/L (10-60) H 06/22/24 05:23 Alkaline Phosphatase 117 IU/L (42-121) 06/22/24 05:23 Total Protein 7.2 g/dL (6.4-8.9) 06/22/24 05:23 Albumin 3.0 g/dL (3.2-5.5) L 06/22/24 05:23 Globulin 4.2 g/dL (2.1-4.2) 06/22/24 05:23 Albumin/Globulin Ratio 0.7 (1.0-2.2) L 06/22/24 05:23 Lipase < 10 U/L (11-82) L 06/21/24 10:37 Urine Color YELLOW 06/21/24 16:05 Urine Clarity CLEAR (CLEAR) 06/21/24 16:05 Urine pH 5.5 PH (5.0-7.5) 06/21/24 16:05 Ur Specific [place] 1.010 (1.002-1.030) 06/21/24 16:05 Urine Protein 30 mg/dL (NEGATIVE) H 06/21/24 16:05 Urine Glucose (UA) NEGATIVE mg/dL (NEGATIVE) 06/21/24 16:05 Urine Ketones NEGATIVE mg/dL (NEGATIVE) 06/21/24 16:05 Urine Occult Blood NEGATIVE (NEGATIVE) 06/21/24 16:05 Urine Nitrite NEGATIVE (NEGATIVE) 06/21/24 16:05 Urine Bilirubin NEGATIVE (NEGATIVE) 06/21/24 16:05 Urine Urobilinogen 4 E.U./dL (NORMAL) H 06/21/24 16:05 Ur Leukocyte Esterase NEGATIVE (NEGATIVE) 06/21/24 16:05 Urine RBC 0-5 /HPF (0-5) 06/21/24 16:05 Urine WBC 0-3 /HPF (0-3) 06/21/24 16:05 Ur Squamous Epith Cells RARE Squamous (<= Few) 06/21/24 16:05 Urine Bacteria None Seen /HPF (None Seen) 06/21/24 16:05 Urine Mucus Few Strands 06/21/24 16:05 Ur Microscopic Review INDICATED 06/21/24 16:05 Urine Culture Comments NOT INDICATED 06/21/24 16:05 Nasal Screen MRSA (PCR) NEGATIVE (NEGATIVE) 06/24/24 11:30 Ethyl Alcohol < 10.0 mg/dL 06/21/24 10:37 Current Medications Current Medications Current Medications: Current Medications Generic Name Dose Route Start Last Admin Trade Name Quang PRN Reason Stop Dose Admin Acetaminophen 650 mg 06/21/24 16:00 06/24/24 08:47 Acetaminophen 325 Mg Tablet PO 650 mg Q4HR PRN Administration Pain 1 to 4, or Fever Hydrocodone Bitart/Acetaminophen 1 tab 06/21/24 17:13 06/25/24 09:44 Hydrocod/Acetam 5/325 Mg Tablet PO 1 tab Q4HR PRN Administration Moderate Pain (Level 4-6) Bupropion HCl 150 mg 06/21/24 21:00 06/25/24 09:44 Bupropion Sr 150 Mg Tablet PO 150 mg BID RICARDO Administration Ceftriaxone Sodium 2 gm 06/21/24 15:00 06/25/24 11:10 Ceftriaxone 2 Gm Vial IVP Not Given DAILY RICARDO Docusate Sodium 250 - 500 mg 06/23/24 13:00 06/25/24 09:45 Docusate Sodium 250 Mg Capsule PO 500 mg DAILY RICARDO Administration Enoxaparin Sodium 40 mg 06/22/24 09:00 06/25/24 09:45 Enoxaparin 40 Mg/0.4 Ml Syringe SUBQ 40 mg DAILY RICARDO Administration Guaifenesin 10 ml 06/22/24 16:02 Guaifenesin/Dextromethorphan 10 Ml Udc PO Q6HR PRN Cough Hydromorphone HCl 1 mg 06/25/24 12:26 Hydromorphone 1 Mg/Ml Carpuject IVP Q2HR PRN Severe Pain (Level 7-10) Metronidazole 500 mg in 100 mls @ 100 mls/hr 06/21/24 15:00 06/25/24 09:32 Flagyl 500 Mg/100 Ml IV Not Given Q8H RICARDO Lactated Ringer's 1,000 mls @ 75 mls/hr 06/23/24 10:00 06/25/24 02:12 Lr IV 75 mls/hr .[id number] RICARDO Administration Lactulose 10 gm 06/25/24 10:00 06/25/24 09:46 Lactulose 10 Gm /15 Ml Udc PO 06/25/24 16:01 10 gm Q2HR RICARDO Administration Melatonin 3 mg 06/22/24 21:00 06/24/24 20:46 Melatonin 3 Mg Tablet PO 3 mg QPM RICARDO Administration Multivitamins/Minerals 1 tab 06/23/24 10:00 06/25/24 09:44 Multivitamin W/Minerals Tablet PO 1 tab DAILYWM RICARDO Administration Ondansetron HCl 4 mg 06/21/24 16:00 06/22/24 22:51 Ondansetron 4 Mg/2 Ml Vial IVP 4 mg Q6HR PRN Administration Nausea / Vomiting Ondansetron HCl 4 mg 06/21/24 16:00 Ondansetron Odt 4 Mg Tablet TL Q6HR PRN Nausea / Vomiting Pantoprazole Sodium 40 mg 06/24/24 20:10 06/25/24 09:44 Pantoprazole 40 Mg Tablet PO 40 mg QDAC RICARDO Administration Polyethylene Glycol 17 gm 06/23/24 13:00 06/25/24 09:45 Polyethylene Glycol 3350 17 Gm Packet PO 17 gm DAILY RICARDO Administration Senna 8.6 - 17.2 mg 06/23/24 21:00 06/25/24 09:45 Senna 8.6 Mg Tablet PO 17.2 mg DAILY RICARDO Administration Sodium Chloride 10 ml 06/21/24 16:00 06/23/24 20:43 Sodium Chloride Flush 0.9% 10 Ml Syringe IVP 10 ml PRN PRN Administration NEEDED PER PROVIDER ORDERS Sodium Chloride 10 ml 06/21/24 17:00 06/25/24 09:46 Sodium Chloride Flush 0.9% 10 Ml Syringe IVP 10 ml 0100,0900,1700 RICARDO Administration Sterile Water 20 ml 06/21/24 15:00 06/25/24 11:10 Water For Injection,Sterile 10 Ml Vial MC Not Given DAILY RICARDO Sterile Water 2.1 ml 06/22/24 21:23 Water For Injection,Sterile 10 Ml Vial MC .ONCE PRN Agitation
--- NOTE | 2024-06-25 12:56 | PT Plan of Care ---
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 MEDICAL/SURGICAL HISTORY Medical History (Updated 06/22/24 @ 11:32 by Hayder Wolfe MD) Strain of right calf muscle Bipolar I disorder with mood-incongruent psychotic features Elevated blood pressure reading Impingement syndrome of right shoulder (12/01/16) Bright red blood per rectum (04/05/17) Shoulder pain, right (11/30/16) Pruritus ani (04/05/17) Presbyopia (05/26/23) Pain in left hip (08/03/18) Lesion of skin of face (06/16/23) Hemorrhoids, internal (04/05/17) Erectile dysfunction (06/16/23) Emphysema (subcutaneous) resulting from a procedure, subsequent encounter (03/19/23) Diverticulosis (05/05/23) Chest pain (03/19/23) Aphasia (06/16/23) Abnormal abdominal MRI (05/05/23) Surgical History (Updated 06/21/24 @ 15:41 by Eva Rowe DO) History of cholecystectomy BALANCE/FUNCTIONAL RESULTS Sitting Balance: Good Standing Balance: Fair Tinetti Composite Score (Balance + Gait): 21 Tinetti Assessment Interpretation: Moderate Fall Risk ASSESSMENT Assessment: The pt is a 68 y/o M who arrived to the ED on 06/21/24 due to worsening abdominal pain over the past 3 months, he was hospitalized with a liver abscess and sepsis. He had a J/P drain placed on 06/21/24 and has a PMH including bipolar, please see chart for complete medical hx. The pt was received resting supine in bed with 1 CHRISTIANA drain on his L and an IV running. He presented today with decreased B UE and LE strength, decreased activity tolerance, and limited tolerance with functional mobility. His overall tolerance throughout this assessment was limited by weakness, fatigue, and abdominal pain. At this time recommend continued skilled PT intervention while in the acute setting and DC home with therapy for further rehab once pt medically stable. This plan was discussed with the pt and he was in agreement with this, stating that there is no way he would willing agree to DC to any type of rehab facility. At the end of the session the pt was supine in bed with call light in reach, bed alarm on, and all needs met. RN, CABINET PROFESSIONAL, DC medical planner, and MD all updated on pt's status and DC rec. PATIENT/FAMILY GOALS Patient/Family Goals: To go home GOALS Improve supine to sit to:: Modified Independent Improve sit to stand to:: Modified Independent Improve pivot transfer ability to:: Modified Independent Improve sit to supine to:: Modified Independent Improve gait ability to:: Ind Advance Assistive Device to:: Front Wheeled Walker Increase distance walked to (in feet):: 50 PLAN Frequency: 1-2x/day Duration: Until discharge DISCHARGE RECOMMENDATIONS Discharge Location: Previous Living Situation Support/Services Needed: Home Health P.T. DC Equipment Recommended: Front wheeled walker Transport Needs at Discharge: Personal vehicle
[2024-06-25] MEDS ORDERED: cefTRIAXone 500 MG VIAL IM STA (13:34)
[2024-06-25] MEDS: LIDOCAINE-MPF 1% 5 ML VIAL SUBQ STA (14:29)
[2024-06-25] MEDS: cefTRIAXone 2 GM VIAL IM STA (14:29)
[2024-06-25] MEDS: GLYCERIN ADULT SUPP PR ONE (14:47)
[2024-06-25] MEDS: metroNIDAZOLE 250 MG TABLET PO STA (16:52)
[2024-06-25] MEDS: oxyCODONE 5 MG TABLET PO ONE (16:52)
[2024-06-25] MEDS: HYDROmorphone 1 MG/ML CARPUJECT IVP PRN (19:40)
[2024-06-26] MEDS: ONDANSETRON ODT 4 MG TABLET TL PRN (01:08)
[2024-06-26 05:03] LABS: HCT - HEMATOCRIT 30.7 % (42.0-52.0); HGB - HEMOGLOBIN 10.1 g/dL (14.0-18.0); MEAN CORPUSCULAR HEMOGLOBIN 31.2 pg (27.0-31.0); MEAN CORPUSCULAR HGB CONC 32.9 g/dL (32.0-36.0); MEAN CORPUSCULAR VOLUME 94.8 fL (80.0-94.0); MEAN PLATELET VOLUME 9.8 fL (7.4-11.4); RED BLOOD COUNT 3.24 10^6/uL (4.70-6.10); RED CELL DISTRIBUTION WIDTH 14.2 % (12.0-15.0)
[2024-06-26 05:24] LABS: CALCIUM 8.7 mg/dL (8.5-10.3); CREATININE 0.7 mg/dL (0.6-1.3); MAGNESIUM 1.9 mg/dL (1.7-2.3); POTASSIUM 3.8 mmol/L (3.5-4.5)
[2024-06-26] MEDS ORDERED: iohexoL-300 100 ML VIAL ONE (07:43)
--- NOTE | 2024-06-26 08:45 | PROVIDER PROGRESS NOTE ---
Subjective Subjective Subjective: Yesterday, patient had a bowel movement. He said it was small, like britt. This morning, he feels as if he's more bloated and distended. He states that he hasn't passed gas since this morning. He denies any fevers, chills, shortness of breath. He has ongoing abdominal pain, located in the left lower quadrant region that comes and goes. He expresses concern over his dog at home, but does have a friend that is dropping by. He is very anxious. Current Medications Current Medications Current Medications: Current Medications Generic Name Dose Route Start Last Admin Trade Name Freq PRN Reason Stop Dose Admin Acetaminophen 650 mg 06/21/24 16:00 06/24/24 08:47 Acetaminophen 325 Mg Tablet PO 650 mg Q4HR PRN Administration Pain 1 to 4, or Fever Hydrocodone Bitart/Acetaminophen 1 tab 06/21/24 17:13 06/25/24 13:29 Hydrocod/Acetam 5/325 Mg Tablet PO 1 tab Q4HR PRN Administration Moderate Pain (Level 4-6) Bupropion HCl 150 mg 06/21/24 21:00 06/26/24 08:17 Bupropion Sr 150 Mg Tablet PO 150 mg BID RICARDO Administration Ceftriaxone Sodium 2 gm 06/21/24 15:00 06/26/24 08:17 Ceftriaxone 2 Gm Vial IVP 2 gm DAILY RICARDO Administration Docusate Sodium 250 - 500 mg 06/23/24 13:00 06/26/24 08:16 Docusate Sodium 250 Mg Capsule PO 250 mg DAILY RICARDO Administration Enoxaparin Sodium 40 mg 06/22/24 09:00 06/26/24 08:18 Enoxaparin 40 Mg/0.4 Ml Syringe SUBQ 40 mg DAILY RICARDO Administration Guaifenesin 10 ml 06/22/24 16:02 Guaifenesin/Dextromethorphan 10 Ml Udc PO Q6HR PRN Cough Hydromorphone HCl 1 mg 06/25/24 12:26 06/26/24 08:18 Hydromorphone 1 Mg/Ml Carpuject IVP 1 mg Q2HR PRN Administration Severe Pain (Level 7-10) Metronidazole 500 mg in 100 mls @ 100 mls/hr 06/21/24 15:00 06/26/24 08:18 Flagyl 500 Mg/100 Ml IV Infused Q8H RICARDO Infusion Melatonin 3 mg 06/22/24 21:00 06/25/24 20:59 Melatonin 3 Mg Tablet PO 3 mg QPM RICARDO Administration Multivitamins/Minerals 1 tab 06/23/24 10:00 06/26/24 08:17 Multivitamin W/Minerals Tablet PO 1 tab DAILYWM RICARDO Administration Ondansetron HCl 4 mg 06/21/24 16:00 06/22/24 22:51 Ondansetron 4 Mg/2 Ml Vial IVP 4 mg Q6HR PRN Administration Nausea / Vomiting Ondansetron HCl 4 mg 06/21/24 16:00 06/26/24 01:08 Ondansetron Odt 4 Mg Tablet TL 4 mg Q6HR PRN Administration Nausea / Vomiting Pantoprazole Sodium 40 mg 06/24/24 20:10 06/26/24 06:56 Pantoprazole 40 Mg Tablet PO 40 mg QDAC RICARDO Administration Polyethylene Glycol 17 gm 06/23/24 13:00 06/26/24 08:18 Polyethylene Glycol 3350 17 Gm Packet PO Not Given DAILY RICARDO Senna 8.6 - 17.2 mg 06/23/24 21:00 06/26/24 08:18 Senna 8.6 Mg Tablet PO Not Given DAILY RICARDO Sodium Chloride 10 ml 06/21/24 16:00 06/26/24 04:53 Sodium Chloride Flush 0.9% 10 Ml Syringe IVP 10 ml PRN PRN Administration NEEDED PER PROVIDER ORDERS Sodium Chloride 10 ml 06/21/24 17:00 06/26/24 08:18 Sodium Chloride Flush 0.9% 10 Ml Syringe IVP 10 ml 0100,0900,1700 RICARDO Administration Sterile Water 20 ml 06/21/24 15:00 06/26/24 08:17 Water For Injection,Sterile 10 Ml Vial MC 20 ml DAILY RICARDO Administration Sterile Water 2.1 ml 06/22/24 21:23 Water For Injection,Sterile 10 Ml Vial MC .ONCE PRN Agitation Objective Vital Signs/Intake & Output Reviewed Vital Signs: Yes Vital Signs: Vital Signs x48h Temp Pulse Resp BP Pulse Ox 06/26/24 08:22 98.2 F 103 H 20 154/98 H 91 L Intake & Output: Intake & Output 06/23/24 06/24/24 06/25/24 06/26/24 23:59 23:59 23:59 23:59 Intake Total 700 / 700 2704 / 2704 1898 / 1898 115 / 115 Output Total 1095 / 1095 915 / 915 1030 / 1030 465 / 465 Balance -395 / -395 1789 / 1789 868 / 868 -350 / -350 Objective General Appearance: positive No acute distress, Alert and Anxious Eyes Bilateral: positive Normal inspection, PERRL and EOMI ENT: positive ENT inspection nml, Pharynx nml and No signs of dehydration Neck: positive Nml inspection, Thyroid nml and No JVD Respiratory: positive Chest non-tender, No respiratory distress and Breath sounds nml; negative Wheezes, Rales or Rhonchi Cardiovascular: positive Regular rate & rhythm, No murmur and No gallop Abdomen: positive No organomegaly, Nml bowel sounds, No distention and Tenderness (RLQ, RUQ tenderness to palpation; drain in place) Back: positive Nml inspection; negative CVA tenderness (R) or CVA tenderness (L) Skin: positive Color nml, No rash and Dry Extremities: positive Non-tender, Full ROM, Nml appearance and No pedal edema Neurologic/Psychiatric: positive Oriented x3, Motor nml and Mood/affect nml Lab Results 06/26/24 04:41 06/26/24 04:41 Other Labs: Lab Results x24hrs 06/26/24 Range/Units 04:41 WBC 18.0 H (4.8-10.8) x10^3/uL RBC 3.24 L (4.70-6.10) 10^6/uL Hgb 10.1 L (14.0-18.0) g/dL Hct 30.7 L (42.0-52.0) % MCV 94.8 H (80.0-94.0) fL MCH 31.2 H (27.0-31.0) pg MCHC 32.9 (32.0-36.0) g/dL RDW 14.2 (12.0-15.0) % Plt Count 652 H (130-450) 10^3/uL MPV 9.8 (7.4-11.4) fL Sodium 136 (135-145) mmol/L Potassium 3.8 (3.5-4.5) mmol/L Chloride 101 (101-111) mmol/L Carbon Dioxide 25 (21-32) mmol/L Anion Gap 10.0 (6-13) BUN 21 H (6-20) mg/dL Creatinine 0.7 (0.6-1.3) mg/dL Estimated GFR (MDRD) 112 (>89) Glucose 135 H (74-104) mg/dL Calcium 8.7 (8.5-10.3) mg/dL Magnesium 1.9 (1.7-2.3) mg/dL Diagnostic Imaging Diagnostic Imaging Results: positive Final report reviewed Assessment/Plan Problem List (1) Abscess of liver: Impression: Patient with 3 months of decreased appetite, weight loss, abdominal pain, fevers, chills. CT abdomen/pelvis shows extensive right lobe liver abscess. Repeat CT done today as leukocytosis isn't improving, and patient continues to have significant abdominal pain - shows new abscess near posterior lobe. Original anterior lobe abscess is smaller and improved. Also shows ileus. Dr. Anderson, IR, consulted for possible repeat drainage - he believes these two may be connected and that the second abscess may improve over time. Hold off on repeat drainage at this time, continue to monitor closely. Patient with CHRISTIANA drain in place. General surgery consulted for management. Ongoing drainage noted. Will Continue Rocephin and flagyl. Cultures sent from abscess drainage - broth results show coagulase negative Staphylococcus aureus, concern for contaminant as the original plates did not grow this bug. Anaerobic cultures remain pending. Will wait on final speciation before de-escalating. Blood cultures with no growth to date. Patient will require 4 weeks of antibiotics, including 2 weeks of IV antibiotics. PICC line to be placed. Patient would not like to go to a facility, so will work with Social Work and Case Management about infusion set-up at home when he is getting ready to be discharged (possible with his insurance). Pending clinical course, patient may require transfer to higher level of care for abscess drainage (hepatic surgeon). Patient continues have significant pain at surgical site of drain placement. Continue IV Dilaudid; 1 mg every 2 hours. Continue oral [employer] as needed for moderate pain. Patient is still requiring high doses of parental pain control. CT abdomen also shows diffuse thickening of the rectosigmoid region. Patient states he had a colonoscopy 1 year ago, but is unclear where this was done. Patient will need repeat colonoscopy as well when clinically stable. May require prep and completion here. (2) Sepsis: Impression: Patient with tachycardia, tachypnea, fevers, as well as leukocytosis. All of the above are slowly improving. Afebrile for over 24 hours. Treatment as above, including Rocephin and Flagyl. Qualifiers: Sepsis acute organ dysfunction status: without acute organ dysfunction Sepsis type: sepsis due to unspecified organism Qualified Code(s): A41.9 - Sepsis, unspecified organism (3) HTN (hypertension), benign: Impression: Was prescribed lisinopril in the outpatient setting, but has not been taking it. Will continue to monitor blood pressure here. (4) Bipolar 1 disorder: Impression: Multiple behavioral health notes which demonstrate noncompliance. Was prescribed Seroquel in the past, but is not currently taking it. Continue Wellbutrin at this time, which he is taking. Not actively psychotic, no active suicidal or homicidal ideation noted.
--- NOTE | 2024-06-26 10:52 | CT Report ---
PROCEDURE: CT Abdomen/Pelvis W INDICATIONS: liver abscess CONTRAST: 100ml omni 300 TECHNIQUE: After the administration of intravenous contrast, a CT scan of the abdomen and pelvis was performed. Images were recorded and evaluated at appropriate window settings. Reformats: coronal and sagittal. F or radiation dose reduction, the following was used: automated exposure control, adjustment of mA and /or kV according to patient size. COMPARISON: 06/21/2024, 06/03/23. FINDINGS: Image quality: Diagnostic. Lower chest: New small right pleural effusion. Right basilar atelectasis. Liver: Interval decrease in size of the segment 6 liver abscess, status post percutaneous drain place ment. The collection measures approximately 2.7 x 2.8 cm, previously 7.0 x 6.5 cm (series 2, image 70 ). Additional smaller abscesses are noted in segment 5/6, decreased in size compared with prior. For instance, the anterior collection in segment 5 measures approximately 3.0 x 2.5 cm, previously 7.5 x 5.5 cm (series 2, image 71). New subhepatic fluid collection along the lateral aspect of segment 6/7 measuring 4.6 x 2.0 cm, containing a small locule of gas (series 2, image 58). Additional subhepatic fluid collection along the medial margin of segment 6/7 measuring 3.7 x 1.7 cm (series 2, image 60). Gallbladder: Surgically absent. Biliary tree: No intrahepatic or extrahepatic dilation, accounting for age. Spleen: No splenomegaly. Pancreas: No pancreatic ductal dilation. Adrenals: Stable 1.5 cm left adrenal adenoma. Kidneys and ureters: No hydronephrosis. No renal cystic lesion which requires follow up. No solid mas s. Stomach, bowel and peritoneum: The central loops of small and large bowel, without discernible transi tion point. Normal enhancement of the bowel without mesenteric edema. Colonic diverticulosis without evidence of diverticulitis. Lymph nodes: No central or retroperitoneal adenopathy. Vessels: No infrarenal aortic aneurysm. Patent portal vein. PELVIS Reproductive organs: Unremarkable. Bladder: Banks catheter within the bladder. Gas within the bladder. Pelvic lymph nodes: No pelvic adenopathy by size criteria. Bones: No aggressive osseous abnormality. Other: No significant ventral or inguinal hernia. IMPRESSION: Interval decrease in size of the anterior right hepatic lobe abscess, status post percutaneous drain placement. The collection surrounding the pigtail catheter measures 2.7 x 2.8 cm, previously 7.0 x 6. 5 cm. Additionally, there has been an interval decrease in size of the anterior component of the absc ess. Interval development of subhepatic fluid collections along the medial and lateral margins of the post erior right hepatic lobes. These measure 4.6 x 2.0 cm and 3.7 x 1.7 cm. One collection contains gas. Findings are concerning for interval development of abscess. New small right pleural effusion with right basilar atelectasis. Adynamic ileus. Reviewed by: Jose Giordano MD on 06/26/2024 10:50 AM PDT Approved by: Jose Giordano MD on 06/26/2024 10:50 AM PDT Station ID: [id number]
[2024-06-26] MEDS: LORazepam 2 MG/ML VIAL IVP PRN (11:05)
--- NOTE | 2024-06-26 11:26 | PROVIDER PROGRESS NOTE ---
Assessment/Plan Problem List (1) Abscess of liver: Assessment/Plan: The actual identification of the bacteria is still pending. We are still awaiting anaerobic cultures. At any rate the treatment is a 4-week long course of antibiotics and the patient's mental status and social conditions have me concerned that I do not believe that he would complete a 4-week course of antibiotics if they were prescribed. Repeat examination today reveals an additional new hepatic abscess that the patient has developed while on antibiotics. From a surgical standpoint it may be preferable for him to been seen at an institution that has hepatic specialists who could operate and effect wide drainage. Of course this is invasive but our minimally invasive drainage has resulted in another abscess. Our ability to involve interventional radiology to place drains is entirely dependent on wo is covering our hospital on any given day. The open surgical drainage of a hepatic abscess is not something that is performed at our critical access hospital. I recommend the beginning of discussions regarding transfer to an institution that has both interventional radiologists and hepatic surgeons on staff. (2) Sepsis: Qualifiers: Sepsis acute organ dysfunction status: without acute organ dysfunction Sepsis type: sepsis due to unspecified organism Qualified Code(s): A41.9 - Sepsis, unspecified organism (3) HTN (hypertension), benign: (4) Bipolar 1 disorder: Current Meds Current Meds: Current Medications Generic Name Dose Route Start Last Admin Trade Name Freq PRN Reason Stop Dose Admin Acetaminophen 650 mg 06/21/24 16:00 06/24/24 08:47 Acetaminophen 325 Mg Tablet PO 650 mg Q4HR PRN Administration Pain 1 to 4, or Fever Hydrocodone Bitart/Acetaminophen 1 tab 06/21/24 17:13 06/25/24 13:29 Hydrocod/Acetam 5/325 Mg Tablet PO 1 tab Q4HR PRN Administration Moderate Pain (Level 4-6) Bupropion HCl 150 mg 06/21/24 21:00 06/26/24 08:17 Bupropion Sr 150 Mg Tablet PO 150 mg BID RICARDO Administration Ceftriaxone Sodium 2 gm 06/21/24 15:00 06/26/24 08:17 Ceftriaxone 2 Gm Vial IVP 2 gm DAILY RICARDO Administration Docusate Sodium 250 - 500 mg 06/23/24 13:00 06/26/24 08:16 Docusate Sodium 250 Mg Capsule PO 250 mg DAILY RICARDO Administration Enoxaparin Sodium 40 mg 06/22/24 09:00 06/26/24 08:18 Enoxaparin 40 Mg/0.4 Ml Syringe SUBQ 40 mg DAILY RICARDO Administration Guaifenesin 10 ml 06/22/24 16:02 Guaifenesin/Dextromethorphan 10 Ml Udc PO Q6HR PRN Cough Hydromorphone HCl 1 mg 06/25/24 12:26 06/26/24 11:05 Hydromorphone 1 Mg/Ml Carpuject IVP 1 mg Q2HR PRN Administration Severe Pain (Level 7-10) Metronidazole 500 mg in 100 mls @ 100 mls/hr 06/21/24 15:00 06/26/24 08:18 Flagyl 500 Mg/100 Ml IV Infused Q8H RICARDO Infusion Lorazepam 1 mg 06/26/24 10:23 06/26/24 11:05 Lorazepam 2 Mg/Ml Vial IVP 06/27/24 10:22 1 mg ONCE PRN Administration Agitation Melatonin 3 mg 06/22/24 21:00 06/25/24 20:59 Melatonin 3 Mg Tablet PO 3 mg QPM RICARDO Administration Multivitamins/Minerals 1 tab 06/23/24 10:00 06/26/24 08:17 Multivitamin W/Minerals Tablet PO 1 tab DAILYWM RICARDO Administration Ondansetron HCl 4 mg 06/21/24 16:00 06/22/24 22:51 Ondansetron 4 Mg/2 Ml Vial IVP 4 mg Q6HR PRN Administration Nausea / Vomiting Ondansetron HCl 4 mg 06/21/24 16:00 06/26/24 01:08 Ondansetron Odt 4 Mg Tablet TL 4 mg Q6HR PRN Administration Nausea / Vomiting Pantoprazole Sodium 40 mg 06/24/24 20:10 06/26/24 06:56 Pantoprazole 40 Mg Tablet PO 40 mg QDAC RICARDO Administration Polyethylene Glycol 17 gm 06/23/24 13:00 06/26/24 08:18 Polyethylene Glycol 3350 17 Gm Packet PO Not Given DAILY RICARDO Senna 8.6 - 17.2 mg 06/23/24 21:00 06/26/24 08:18 Senna 8.6 Mg Tablet PO Not Given DAILY RICARDO Sodium Chloride 10 ml 06/21/24 16:00 06/26/24 04:53 Sodium Chloride Flush 0.9% 10 Ml Syringe IVP 10 ml PRN PRN Administration NEEDED PER PROVIDER ORDERS Sodium Chloride 10 ml 06/21/24 17:00 06/26/24 08:18 Sodium Chloride Flush 0.9% 10 Ml Syringe IVP 10 ml 0100,0900,1700 RICARDO Administration Sterile Water 20 ml 06/21/24 15:00 06/26/24 08:17 Water For Injection,Sterile 10 Ml Vial MC 20 ml DAILY RICARDO Administration Lab Result 06/26/24 04:41 06/26/24 04:41 Subjective Subjective Patient Reports: Other (Still complaining of RUQ pain.) Objective Vital Signs: Vital Signs - 24 hr 06/25/24 12:00 06/25/24 13:29 06/25/24 14:30 Temperature Temperature Source Pulse Rate [Brachial] Respiratory Rate Blood Pressure [Left Brachial artery] Blood Pressure [Right Brachial artery] O2 Saturation O2 Source Sedation scale Pain Intensity 10 9 Pain Intensity [Right Abdomen] 9 06/25/24 16:03 06/25/24 16:52 06/25/24 19:40 Temperature 37.1 C Temperature Source Temporal Artery Scan Pulse Rate [Brachial] 108 H Respiratory Rate 20 Blood Pressure [Left Brachial artery] Blood Pressure [Right Brachial artery] 182/108 H O2 Saturation 93 O2 Source Room air Sedation scale 0-Fully awake Pain Intensity 9 9 Pain Intensity [Right Abdomen] 06/25/24 20:00 06/25/24 20:23 06/25/24 22:26 Temperature Temperature Source Pulse Rate [Brachial] Respiratory Rate Blood Pressure [Left Brachial artery] Blood Pressure [Right Brachial artery] O2 Saturation O2 Source Sedation scale Pain Intensity 0 7 Pain Intensity [Right Abdomen] 9 06/25/24 23:15 06/25/24 23:47 06/26/24 00:00 Temperature 36.6 C Temperature Source Temporal Artery Scan Pulse Rate [Brachial] 97 Respiratory Rate 20 Blood Pressure [Left Brachial artery] Blood Pressure [Right Brachial artery] 132/87 H O2 Saturation 97 O2 Source Room air Sedation scale 0-Fully awake Pain Intensity 2 Pain Intensity [Right Abdomen] 0 06/26/24 04:54 06/26/24 08:00 06/26/24 08:18 Temperature Temperature Source Pulse Rate [Brachial] Respiratory Rate Blood Pressure [Left Brachial artery] Blood Pressure [Right Brachial artery] O2 Saturation O2 Source Sedation scale Pain Intensity 7 9 Pain Intensity [Right Abdomen] 9 06/26/24 08:22 06/26/24 09:00 06/26/24 11:05 Temperature 36.8 C Temperature Source Temporal Artery Scan Pulse Rate [Brachial] 103 H Respiratory Rate 20 Blood Pressure [Left Brachial artery] 154/98 H Blood Pressure [Right Brachial artery] O2 Saturation 91 L O2 Source Room air Sedation scale Pain Intensity 7 7 Pain Intensity [Right Abdomen] Oxygen O2 Source Room air I&O (Last 24 Hrs): Intake and Output Totals x24h 06/24/24 06/25/24 06/26/24 23:59 23:59 23:59 Intake Total 2704 / 2704 1898 / 1898 235 / 235 Output Total 915 / 915 1030 / 1030 465 / 465 Balance 1789 / 1789 868 / 868 -230 / -230 Comments/Notes: General: 68-year old male, appears older than stated age, well developed, well nourished HEENT: Normocephalic, atraumatic, extraocular movement intact, mucous membranes pink and moist, sclera anicteric and not injected Neck: Supple no bruit Cardiac: Regular rate and rhythm without rub, gallop, or murmur Chest: Clear to auscultation bilaterally Abdomen: Soft, much more tender at drain site Genitourinary: Deferred Rectal: Deferred Extremities: No gross neurovascular problem, no clubbing, cyanosis or edema Gait: Not evaluated Psychiatric: Alert and oriented to person place and time, asks and answers questions appropriately, mood and affect appropriate but tends to perseverate Results Results: Laboratory Results WBC 18.0 x10^3/uL (4.8-10.8) H 06/26/24 04:41 RBC 3.24 10^6/uL (4.70-6.10) L 06/26/24 04:41 Hgb 10.1 g/dL (14.0-18.0) L 06/26/24 04:41 Hct 30.7 % (42.0-52.0) L 06/26/24 04:41 MCV 94.8 fL (80.0-94.0) H 06/26/24 04:41 MCH 31.2 pg (27.0-31.0) H 06/26/24 04:41 MCHC 32.9 g/dL (32.0-36.0) 06/26/24 04:41 RDW 14.2 % (12.0-15.0) 06/26/24 04:41 Plt Count 652 10^3/uL (130-450) H 06/26/24 04:41 MPV 9.8 fL (7.4-11.4) 06/26/24 04:41 Neut # (Auto) Not Reportable 06/21/24 10:37 Lymph # (Auto) Not Reportable 06/21/24 10:37 Gem # (Auto) Not Reportable 06/21/24 10:37 Eos # (Auto) Not Reportable 06/21/24 10:37 Baso # (Auto) Not Reportable 06/21/24 10:37 Absolute Nucleated RBC Not Reportable 06/21/24 10:37 Total Counted 100 06/21/24 10:37 Band Neuts % (Manual) 2 % (0-10) 06/21/24 10:37 Reactive Lymphs % (Man) 3 % 06/21/24 10:37 Abnorm Lymph % (Manual) 0 % 06/21/24 10:37 Nucleated RBC % Not Reportable 06/21/24 10:37 Neutrophils # (Manual) 18.4 10^3/uL (1.5-6.6) H 06/21/24 10:37 Lymphocytes # (Manual) 0.9 10^3/uL (1.5-3.5) L 06/21/24 10:37 Monocytes # (Manual) 2.4 10^3/uL (0.0-1.0) H 06/21/24 10:37 Eosinophils # (Manual) 0.0 10^3/uL (0-0.7) 06/21/24 10:37 Basophils # (Manual) 0.0 10^3/uL (0-0.1) 06/21/24 10:37 Differential Comment MANUAL DIFFERENTIAL 06/21/24 10:37 Platelet Estimate INCREASED (>450,000) (NORMAL) 06/21/24 10:37 RBC Morph Micro Appear 1+ ANISOCYTOSIS (NORMAL) 06/21/24 10:37 PT 20.4 secs (9.9-12.6) H 06/21/24 13:13 INR 1.8 (0.8-1.2) H 06/21/24 13:13 APTT 30.6 secs (24.9-33.3) 06/21/24 13:13 Sodium 136 mmol/L (135-145) 06/26/24 04:41 Potassium 3.8 mmol/L (3.5-4.5) 06/26/24 04:41 Chloride 101 mmol/L (101-111) 06/26/24 04:41 Carbon Dioxide 25 mmol/L (21-32) 06/26/24 04:41 Anion Gap 10.0 (6-13) 06/26/24 04:41 BUN 21 mg/dL (6-20) H 06/26/24 04:41 Creatinine 0.7 mg/dL (0.6-1.3) 06/26/24 04:41 Estimated GFR (MDRD) 112 (>89) 06/26/24 04:41 Glucose 135 mg/dL (74-104) H 06/26/24 04:41 Calcium 8.7 mg/dL (8.5-10.3) 06/26/24 04:41 Magnesium 1.9 mg/dL (1.7-2.3) 06/26/24 04:41 Total Bilirubin 1.6 mg/dL (0.2-1.0) H 06/22/24 05:23 AST 42 IU/L (10-42) 06/22/24 05:23 ALT 63 IU/L (10-60) H 06/22/24 05:23 Alkaline Phosphatase 117 IU/L (42-121) 06/22/24 05:23 Total Protein 7.2 g/dL (6.4-8.9) 06/22/24 05:23 Albumin 3.0 g/dL (3.2-5.5) L 06/22/24 05:23 Globulin 4.2 g/dL (2.1-4.2) 06/22/24 05:23 Albumin/Globulin Ratio 0.7 (1.0-2.2) L 06/22/24 05:23 Lipase < 10 U/L (11-82) L 06/21/24 10:37 Urine Color YELLOW 06/21/24 16:05 Urine Clarity CLEAR (CLEAR) 06/21/24 16:05 Urine pH 5.5 PH (5.0-7.5) 06/21/24 16:05 Ur Specific Gates 1.010 (1.002-1.030) 06/21/24 16:05 Urine Protein 30 mg/dL (NEGATIVE) H 06/21/24 16:05 Urine Glucose (UA) NEGATIVE mg/dL (NEGATIVE) 06/21/24 16:05 Urine Ketones NEGATIVE mg/dL (NEGATIVE) 06/21/24 16:05 Urine Occult Blood NEGATIVE (NEGATIVE) 06/21/24 16:05 Urine Nitrite NEGATIVE (NEGATIVE) 06/21/24 16:05 Urine Bilirubin NEGATIVE (NEGATIVE) 06/21/24 16:05 Urine Urobilinogen 4 E.U./dL (NORMAL) H 06/21/24 16:05 Ur Leukocyte Esterase NEGATIVE (NEGATIVE) 06/21/24 16:05 Urine RBC 0-5 /HPF (0-5) 06/21/24 16:05 Urine WBC 0-3 /HPF (0-3) 06/21/24 16:05 Ur Squamous Epith Cells RARE Squamous (<= Few) 06/21/24 16:05 Urine Bacteria None Seen /HPF (None Seen) 06/21/24 16:05 Urine Mucus Few Strands 06/21/24 16:05 Ur Microscopic Review INDICATED 06/21/24 16:05 Urine Culture Comments NOT INDICATED 06/21/24 16:05 Nasal Screen MRSA (PCR) NEGATIVE (NEGATIVE) 06/24/24 11:30 Ethyl Alcohol < 10.0 mg/dL 06/21/24 10:37 ABX Reporting Has patient been on IV antibiotics over the past 48 hours?: Yes Current Medications Current Medications Current Medications: Current Medications Generic Name Dose Route Start Last Admin Trade Name Freq PRN Reason Stop Dose Admin Acetaminophen 650 mg 06/21/24 16:00 06/24/24 08:47 Acetaminophen 325 Mg Tablet PO 650 mg Q4HR PRN Administration Pain 1 to 4, or Fever Hydrocodone Bitart/Acetaminophen 1 tab 06/21/24 17:13 06/25/24 13:29 Hydrocod/Acetam 5/325 Mg Tablet PO 1 tab Q4HR PRN Administration Moderate Pain (Level 4-6) Bupropion HCl 150 mg 06/21/24 21:00 06/26/24 08:17 Bupropion Sr 150 Mg Tablet PO 150 mg BID RICARDO Administration Ceftriaxone Sodium 2 gm 06/21/24 15:00 06/26/24 08:17 Ceftriaxone 2 Gm Vial IVP 2 gm DAILY RICARDO Administration Docusate Sodium 250 - 500 mg 06/23/24 13:00 06/26/24 08:16 Docusate Sodium 250 Mg Capsule PO 250 mg DAILY RICARDO Administration Enoxaparin Sodium 40 mg 06/22/24 09:00 06/26/24 08:18 Enoxaparin 40 Mg/0.4 Ml Syringe SUBQ 40 mg DAILY RICARDO Administration Guaifenesin 10 ml 06/22/24 16:02 Guaifenesin/Dextromethorphan 10 Ml Udc PO Q6HR PRN Cough Hydromorphone HCl 1 mg 06/25/24 12:26 06/26/24 11:05 Hydromorphone 1 Mg/Ml Carpuject IVP 1 mg Q2HR PRN Administration Severe Pain (Level 7-10) Metronidazole 500 mg in 100 mls @ 100 mls/hr 06/21/24 15:00 06/26/24 08:18 Flagyl 500 Mg/100 Ml IV Infused Q8H RICARDO Infusion Lorazepam 1 mg 06/26/24 10:23 06/26/24 11:05 Lorazepam 2 Mg/Ml Vial IVP 06/27/24 10:22 1 mg ONCE PRN Administration Agitation Melatonin 3 mg 06/22/24 21:00 06/25/24 20:59 Melatonin 3 Mg Tablet PO 3 mg QPM RICARDO Administration Multivitamins/Minerals 1 tab 06/23/24 10:00 06/26/24 08:17 Multivitamin W/Minerals Tablet PO 1 tab DAILYWM RICARDO Administration Ondansetron HCl 4 mg 06/21/24 16:00 06/22/24 22:51 Ondansetron 4 Mg/2 Ml Vial IVP 4 mg Q6HR PRN Administration Nausea / Vomiting Ondansetron HCl 4 mg 06/21/24 16:00 06/26/24 01:08 Ondansetron Odt 4 Mg Tablet TL 4 mg Q6HR PRN Administration Nausea / Vomiting Pantoprazole Sodium 40 mg 06/24/24 20:10 06/26/24 06:56 Pantoprazole 40 Mg Tablet PO 40 mg QDAC RICARDO Administration Polyethylene Glycol 17 gm 06/23/24 13:00 06/26/24 08:18 Polyethylene Glycol 3350 17 Gm Packet PO Not Given DAILY RICARDO Senna 8.6 - 17.2 mg 06/23/24 21:00 06/26/24 08:18 Senna 8.6 Mg Tablet PO Not Given DAILY RICARDO Sodium Chloride 10 ml 06/21/24 16:00 06/26/24 04:53 Sodium Chloride Flush 0.9% 10 Ml Syringe IVP 10 ml PRN PRN Administration NEEDED PER PROVIDER ORDERS Sodium Chloride 10 ml 06/21/24 17:00 06/26/24 08:18 Sodium Chloride Flush 0.9% 10 Ml Syringe IVP 10 ml 0100,0900,1700 RICARDO Administration Sterile Water 20 ml 06/21/24 15:00 06/26/24 08:17 Water For Injection,Sterile 10 Ml Vial MC 20 ml DAILY RICARDO Administration
--- NOTE | 2024-06-26 12:34 | CONSULTATION NOTE ---
Consultation Report: Verified PICC line placement by RN using teleflex Pwave confirmation, no CXR needed to confirm SVC, see scanned images. PFSH Active Problems All Active Problems (Updated 06/26/24 @ 00:00 by ) Sepsis (Acute) Concern about digestive 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 diagnosis (Acute) Leukocytosis (Acute) Abscess of liver (Acute) Pain in penis (Acute) Left thigh pain (Acute) Sleep apnea (Acute 03/19/23) Unspecified injury of muscle, fascia and tendon of the posterior muscle group at thigh level, left thigh, initial encounter (Acute 05/05/18) Multiple medical problems (Acute) Left knee sprain (Acute) Non-adherence to medical treatment (Acute) Chronic chest pain (Acute) Anxiety associated with depression (Acute) Poor concentration (Acute) Abnormal food appetite (Acute) Dysuria (Acute) HTN (hypertension), benign (Acute) Pain, joint, knee, left (Acute 06/16/23) Elevated blood pressure reading without diagnosis of hypertension (Acute 03/31/23) Bipolar 1 disorder (Acute 03/19/23) Needs assistance with community resources (Acute) Elevated blood pressure reading in office with diagnosis of hypertension (Acute) Strain of left knee and leg (Acute) Muscle cramps (Acute) Medical History Medical History (Updated 06/26/24 @ 00:00 by ) Strain of right calf muscle Bipolar I disorder with mood-incongruent psychotic features Elevated blood pressure reading Impingement syndrome of right shoulder (12/01/16) Bright red blood per rectum (04/05/17) Shoulder pain, right (11/30/16) Pruritus ani (04/05/17) Presbyopia (05/26/23) Pain in left hip (08/03/18) Lesion of skin of face (06/16/23) Hemorrhoids, internal (04/05/17) Erectile dysfunction (06/16/23) Emphysema (subcutaneous) resulting from a procedure, subsequent encounter (03/19/23) Diverticulosis (05/05/23) Chest pain (03/19/23) Aphasia (06/16/23) Abnormal abdominal MRI (05/05/23) Surgical History Surgical History (Updated 06/21/24 @ 15:41 by Eva Rowe DO) History of cholecystectomy Family History Family History Daughter Drug abuse Son Drug abuse Social History Social History Smoking Status: Unknown if ever smoked If you are a former smoker, when did you quit? (Date/Year): 2004 Second hand tobacco smoke exposure: No Do you dip or chew tobacco?: No Do you vape?: No Smoking Status Details: pt states no, but unable to assess properly Living arrangement: At home Marital Status: Living Condition: Alone Relationship: Physical Activity: Weight-lifting How many days per week?: 3 Level: Independent Physical - Functional Details: pt does not engage in exercise program Do you feel safe in your home environment?: Yes History of Abuse: No ETOH Use: Wine Frequency: Daily Number of Amount/day: 1 ETOH Use Details: pt has hx of AUD Substance Use: cannabis (any form) Substance Use Details: 4-5 joints daily Are you sexually active?: No 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; 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; [employer] Retired: No Service: No Are you following a diet prescribed by a doctor: No Are you following a special diet: No Conclusion/Plan Problem List (1) Abscess of liver: (2) Sepsis: Qualifiers: Sepsis type: sepsis due to unspecified organism Sepsis acute organ dysfunction status: without acute organ dysfunction Qualified Code(s): A41.9 - Sepsis, unspecified organism (3) HTN (hypertension), benign: (4) Bipolar 1 disorder: Lab Results Lab results reviewed: Yes 06/26/24 04:41 06/26/24 04:41 Meds/Allgy Home Medications Ambulatory Orders Medication Instructions Recorded Confirmed quetiapine 25 mg tablet See Rx Instructions PO ONCE HS #90 04/10/24 06/22/24 tabs methocarbamol 750 mg tablet 750 mg PO Q6H #60 tabs 04/12/24 06/21/24 meloxicam 15 mg tablet 15 mg PO DAILY #30 tabs 04/26/24 06/21/24 L.acid,par,plant,rham-B.anim,bif,brev,inf,long 1 cap PO DAILY 06/21/24 06/21/24 30 billion cell capsule (Probiotic Digestive Health) bupropion HCl 150 mg tablet,12 hr 150 mg PO BID 06/21/24 06/21/24 sustained-release ibuprofen 200 mg tablet (Advil) 200 mg PO Q8H 06/21/24 06/21/24 magnesium oxide 250 mg PO DAILY 06/21/24 06/21/24 zinc gluconate 30 mg tablet 30 mg PO DAILY 06/21/24 06/21/24 Allergies Allergies Allergy/AdvReac Type Severity Reaction Status Date / Time Penicillins Allergy Severe fainting Verified 06/21/24 10:25 Exam Exam Vital Signs: Vital Signs x48h Temp Pulse Resp BP Pulse Ox 06/26/24 08:22 36.8 C 103 H 20 154/98 H 91 L
--- NOTE | 2024-06-26 14:09 | OT Plan of Care ---
OT Plan of Care OT Plan of Care: Diagnosis Diagnosis liver abscess, sepsis Diagnosis CHRISTIANA drain placed 06/21/24 Chief Complaint abdominal pain Onset of Chief Complaint [employer] MATE M on 06/21/24 Surgical History (Updated 06/21/24 @ 15:41 by Eva Rowe DO) History of cholecystectomy Medical History (Updated 06/26/24 @ 00:00 by ) Strain of right calf muscle Bipolar I disorder with mood-incongruent psychotic features Elevated blood pressure reading Impingement syndrome of right shoulder (12/01/16) Bright red blood per rectum (04/05/17) Shoulder pain, right (11/30/16) Pruritus ani (04/05/17) Presbyopia (05/26/23) Pain in left hip (08/03/18) Lesion of skin of face (06/16/23) Hemorrhoids, internal (04/05/17) Erectile dysfunction (06/16/23) Emphysema (subcutaneous) resulting from a procedure, subsequent encounter (03/19/23) Diverticulosis (05/05/23) Chest pain (03/19/23) Aphasia (06/16/23) Abnormal abdominal MRI (05/05/23) Assessment Assessment Pt is a 66 y/o F who arrived to the ED on due to progressive weakness and diarrhea over 2 days [employer] M, she was hospitalized with UTI and hyponatremia. She has a PMH including ETOH abuse , please see chart for complete medical hx. Met supine in bed, A&OX4 willing to participate with therapy. Circular speech but directable and appropriate. Performed supine to sit, sit to stand, and ambulation to/from bathroom MIN A using RW - Expresses understanding of instability and fair ability to recognize/plan for decreased balance. MIN A ADLs with increased time. Overall presents with decreased balance, endurance, activity tolerance and ADL status. Will benefit from cont OT services during acute stay. Rec d/c to home with OT services. Goals - Activities of Daily Living Improve Upper Extremity Modified Independent Dressing to: Improve Lower Extremity Modified Independent Dressing to: Improve Grooming/Hygiene to: Modified Independent Improve Bathing to: Modified Independent Improve Toileting to: Modified Independent Plan Treatment Frequency 2 to 3 times/week Duration Until discharge -Discharge Recommendations Discharge Location Previous Living Situation Support/Services Needed Home Health O.T. Transport Needs at Discharge Personal vehicle
[2024-06-26] MEDS: SOAP SUDS ENEMA 1 EACH RC ONE (16:26)
[2024-06-26] MEDS: LACTULOSE 10 GM /15 ML UDC PO SCH (21:00)
[2024-06-27 05:53] LABS: HCT - HEMATOCRIT 28.1 % (42.0-52.0); HGB - HEMOGLOBIN 9.1 g/dL (14.0-18.0); MEAN CORPUSCULAR HEMOGLOBIN 31.6 pg (27.0-31.0); MEAN CORPUSCULAR HGB CONC 32.4 g/dL (32.0-36.0); MEAN CORPUSCULAR VOLUME 97.6 fL (80.0-94.0); MEAN PLATELET VOLUME 9.4 fL (7.4-11.4); RED BLOOD COUNT 2.88 10^6/uL (4.70-6.10); RED CELL DISTRIBUTION WIDTH 14.7 % (12.0-15.0); WHITE BLOOD COUNT 15.5 x10^3/uL (4.8-10.8)
[2024-06-27 06:05] LABS: MAGNESIUM 1.7 mg/dL (1.7-2.3)
[2024-06-27 06:10] LABS: CALCIUM 7.4 mg/dL (8.5-10.3); CREATININE 0.6 mg/dL (0.6-1.3); POTASSIUM 3.4 mmol/L (3.5-4.5)
[2024-06-27] MEDS: MAGNESIUM CITRATE 296 ML BOTTLE PO ONE (08:26)
--- NOTE | 2024-06-27 15:19 | Discharge Summary ---
"Discharge Summary Admit Date: 06/21/24 Discharge Date: 06/27/24 Discharging Provider: Faith Voss MD Primary Care Provider: RAY Montez Code Status: Attempt Resuscitation DIAGNOSES Discharge Diagnoses with Status of Each Condition: 1. Abscess of the liver 2. Sepsis 3. Hypertension 4. Bipolar disorder HPI History of Present Illness: Patient is a 68-year-old male with a history of bipolar disorder who presents with 3 months of worsening abdominal pain. Patient describes the pain as sharp and located in his right upper quadrant. He said he noticed it about 3 months ago, and has progressively gotten worse. He also notes decreased appetite, and a 20 pound weight loss over the last few months. Has had some nausea, but no episodes of emesis. Over the last 2 to 3 days, he has noticed that he has had some fevers and chills as well. He does state that he had a cholecystectomy a few years ago. He also states that he has had multiple colonoscopies, the most recent one being about a year ago. When asked where, he said a hospital in [place], but is unable to provide the exact one. He states his ex-girlfriend would know, and we will continue to keep us updated. Previous notes from family medicine and walk-in care were reviewed: Patient does have a long history of noncompliance. In the ER, patient was afebrile, saturating 90% on room air, blood pressure was 101/74, and his heart rate was 97. Lab work was significant for a leukocytosis of 21.6, hemoglobin of 10.5, sodium of 130, elevated bilirubin of 1.4, AST of 60, and ALT of 78. Lipase was less than 10. CT abdomen/pelvis was done which shows extensive right lobe liver abscess, as well as extensive sigmoid diverticulosis with diffuse thickening in the region of the rectosigmoid. CONSULTS | PROCEDURES Consultations: General Surgery and Interventional Radiology Procedures: 1. CT Abdomen/Pelvis W IMPRESSION: 1. New findings in the liver most likely represent extensive right lobe liver abscess. Necrotic metastatic disease less likely. Of note, there are no liver lesions on the previous study. 2. Extensive sigmoid diverticulosis as seen previously, with diffuse thickening in the region of the rectosigmoid, also similar to previous. Comments: The liver process would be amenable to CT-guided sampling and drainage. Recommend nonemergent colonoscopy if this has not yet been accomplished since the previous study to exclude a rectosigmoid lesion. 2. PROCEDURE: CT liver abscess drain INDICATIONS: Liver abscess FINDINGS: Drainage site: Right lower liver Drain: 12 English tail drainage catheter. Medications: 1% lidocaine for local anaesthesia. IV Fentanyl was administered for pain control. Complications: No significant postprocedural hemorrhage. The sample has a blood tinge to it. Approximately 15 cc purulent fluid was aspirated and sent for culture. IMPRESSION: Successful CT-guided right liver abscess aspiration and pigtail drain placement. 3. PROCEDURE: CT Abdomen/Pelvis W INDICATIONS: liver abscess IMPRESSION: Interval decrease in size of the anterior right hepatic lobe abscess, status post percutaneous drain placement. The collection surrounding the pigtail catheter measures 2.7 x 2.8 cm, previously 7.0 x 6.5 cm. Additionally, there has been an interval decrease in size of the anterior component of the abscess. Interval development of subhepatic fluid collections along the medial and lateral margins of the posterior right hepatic lobes. These measure 4.6 x 2.0 cm and 3.7 x 1.7 cm. One collection contains gas. Findings are concerning for interval development of abscess. New small right pleural effusion with right basilar atelectasis. Adynamic ileus. HOSPITAL COURSE Hospital Course: (1) Abscess of liver: Impression: Patient with 3 months of decreased appetite, weight loss, abdominal pain, fevers, chills. He has lost about [address] abdomen/pelvis shows extensive right lobe liver abscess. Repeat CT done today as leukocytosis isn't improving, and patient continues to have significant abdominal pain - shows new abscess near posterior lobe. Original anterior lobe abscess is smaller and improved. Also shows ileus. Dr. Anderson, IR, consulted for possible repeat drainage - he believes these two may be connected and that the second abscess may improve over time. Patient with CHRISTIANA drain in place. General surgery consulted for management. Ongoing drainage noted. Follow-up CT was done and showed improvement. However there is a suggestion of either a contiguous abscess or a new abscess. General surgery feels that this patient should be transferred to higher level of care.Your interpretation of the CT is slightly different. They feel that there is an area of abscess below the drain and as such will not be able to be drained. And that the second abscess that seems to be suggested on the follow- up CT may also not be drained because of the curve of the abscess as it curves upward and backward. He was treated with Rocephin and flagyl. Cultures sent from abscess drainage - broth results show coagulase negative Staphylococcus aureus, concern for contaminant as the original plates did not grow this bug. Anaerobic cultures remain pending. We were awaiting final speciation before de-escalating but the patient is being transferred. Blood cultures with no growth to date. Patient will require 4 weeks of antibiotics, including 2 weeks of IV antibiotics. PICC lines was placed. Patient continued to have significant pain at surgical site of drain placement. Treatment was IV Dilaudid; 1 mg every 2 hours. Continue oral [place] as needed for moderate pain. Patient continued to require high doses of parental pain control. CT abdomen also shows diffuse thickening of the rectosigmoid region. Patient states he had a colonoscopy 1 year ago, but is unclear where this was done. Patient will need repeat colonoscopy as well when clinically stable.I reached out to [facility]. Transfer center was able to speak to interventional radiology who reviewed the films and they do feel that they could successfully do more drainage. I then spoke to the hospitalist who had received the patient and Dr. Starr accepted the patient in transfer. (2) Sepsis: Impression: Patient with tachycardia, tachypnea, fevers, as well as leukocytosis. All of the above slowly improved.. Afebrile for over 48 hours. WBC was 21.6 on admit, then 23/5 on 06/23 and has slowly come down to 15.5 today. Today is Day #7 of Rocephin and Flagyl. Qualifiers: Sepsis acute organ dysfunction status: without acute organ dysfunction Sepsis type: sepsis due to unspecified organism Qualified Code(s): A41.9 - Sepsis, unspecified organism (3) HTN (hypertension), benign: Impression: Was prescribed lisinopril in the outpatient setting, but has not been taking it. Will continue to monitor blood pressure here. At discharge he is 140/98. (4) Bipolar 1 disorder: Impression: Multiple behavioral health notes which demonstrate noncompliance. Was prescribed Seroquel in the past, but is not currently taking it. Continue Wellbutrin at this time, which he is taking. Not actively psychotic, no active suicidal or homicidal ideation noted. ALLERGIES Allergies Allergy/AdvReac Type Severity Reaction Status Date / Time Penicillins Allergy Severe fainting Verified 06/21/24 10:25 MEDICATIONS Ambulatory Orders Medication Instructions Recorded Confirmed quetiapine 25 mg tablet See Rx Instructions PO ONCE HS #90 04/10/24 06/22/24 tabs methocarbamol 750 mg tablet 750 mg PO Q6H #60 tabs 04/12/24 06/21/24 meloxicam 15 mg tablet 15 mg PO DAILY #30 tabs 04/26/24 06/21/24 L.acid,par,plant,rham-B.anim,bif,brev,inf,long 1 cap PO DAILY 06/21/24 06/21/24 30 billion cell capsule ([facility]) bupropion HCl 150 mg tablet,12 hr 150 mg PO BID 06/21/24 06/21/24 sustained-release ibuprofen 200 mg tablet (Advil) 200 mg PO Q8H 06/21/24 06/21/24 magnesium oxide 250 mg PO DAILY 06/21/24 06/21/24 zinc gluconate 30 mg tablet 30 mg PO DAILY 06/21/24 06/21/24 PHYSICAL EXAM AT DISCHARGE Vital Signs: Vital Signs x48h Temp Pulse Resp BP Pulse Ox 06/27/24 16:11 94 06/27/24 15:51 36.3 C L 114 H 24 140/98 H 91 L General Appearance: positive Alert, Moderate distress (RUQ pain is unremitting and not well controlled with our opioids) and Other (dishevelled, bearded) Eyes Bilateral: positive PERRL ENT: positive Dry mucous membranes Neck: positive No JVD; negative Stiff neck Respiratory: positive Chest non-tender, No respiratory distress and Breath sounds nml Cardiovascular: positive Regular rate & rhythm and Tachycardia (present off and on to <110 for his stay) Abdomen: positive Tenderness (epigastrium and RUQ), Abnml bowel sounds (hypoactive) and Other (rounded and slightly distended. Last BM 3 days ago. Has bean in place. ); negative Guarding Skin: positive Warm, Dry and Pallor Extremities: positive No pedal edema Neurologic/Psychiatric: positive Oriented x3 (but forgetful and repetitive. Fixated on 2 stories of how he lost family inheritance from his sister, and how he lost and L&I claim and how the system is against him) LABS 06/27/24 05:48 06/27/24 05:48 TIME SPENT Time Spent in Discharge (Minutes): 45 Discharge Plan Discharge Patient Disposition: 02 Transfer Acute Care Hosp Condition: Stable Medically Cleared Date:: 06/27/24 Prescriptions: No Action quetiapine 25 mg tablet See Rx Instructions PO ONCE HS Qty: 90 0RF Rx Instructions: take 1 - 2 tablets orally once at bedtime; 25 mg orally once at bedtime; meloxicam 15 mg tablet 15 mg PO DAILY Qty: 30 2RF bupropion HCl 150 mg tablet sustained-release 12 hr 150 mg PO BID magnesium oxide 250 mg magnesium tablet 250 mg PO DAILY zinc gluconate 30 mg tablet 30 mg PO DAILY Probiotic Digestive Health 30 billion cell capsule 1 cap PO DAILY ibuprofen [Advil] 200 mg tablet 200 mg PO Q8H methocarbamol 750 mg tablet 750 mg PO Q6H Qty: 60 1RF Print Language: Sami Stand Alone Forms: PCP List Follow-up Care: Katarzyna Stover [facility] [Primary Care Provider] -"
[2024-06-27 15:53] VITALS: BP 140/98; TEMP 97.3
[2024-06-27 16:12] VITALS: O2SAT 94
== END 2024-06-27 18:50 | disposition short-term general hospital (02) | DRG 871 ==
LOC: ED 10:14 → MS2 14:46
PROVIDERS: ADMIT Internal Medicine; ATTEND Internal Medicine
DX: A41.9 Sepsis, unspecified organism; F31.9 Bipolar disorder, unspecified; Z63.5 Disruption of family by separation and divorce; E66.9 Obesity, unspecified; Z90.49 Acquired absence of other specified parts of digestive tract; Z79.899 Other long term (current) drug therapy; R93.3 Abnormal findings on diagnostic imaging of other parts of digestive tract; Z91.199 Patient's noncompliance with other medical treatment and regimen due to unspecified reason; Z68.28 Body mass index [BMI] 28.0-28.9, adult; Z87.891 Personal history of nicotine dependence; I10 Essential (primary) hypertension; K75.0 Abscess of liver; K57.30 Diverticulosis of large intestine without perforation or abscess without bleeding; R63.0 Anorexia